=== PATIENT | female | born 1965 | race African-American/Black ===

== ENCOUNTER 2019-02-18 09:08 | Emergency (ER) | payer OTHER ==
[~2019-02-18] VITALS: Ht 162.6 cm; Wt 181.4 kg
[2019-02-18 09:30] LABS: ABSOLUTE NEUTROPHILS 4.8 thou/uL (1.4-8.2); BASOPHILS 1.2 % (0.0-2.0); EOSINOPHILS 2.5 % (0.0-3.0); HEMATOCRIT 31.3 % (37.0-47.0); HEMOGLOBIN 10.3 gm/dL (12.0-15.0); LYMPHOCYTES 29.5 % (24.0-44.0); MCH 26.1 pg (26.0-34.0); MCHC 32.9 g/dL (28.0-37.0); MCV 79.3 fL (80.0-100.0); MONOCYTES 9.2 % (1.0-8.0); POLYS 57.6 % (36.0-66.0); RBC 3.95 mil/uL (4.20-5.00); WBC 8.8 thou/uL (4.0-11.0)
[2019-02-18 09:36] LABS: ANION GAP 4 mmol/L (7-16); BUN 7 mg/dL (7-18); CALCIUM 9.1 mg/dL (8.5-10.1); CHLORIDE 103 mmol/L (98-107); CO2 32 mmol/L (21-32); CREATININE 0.9 mg/dL (0.6-1.0); GLUCOSE 217 mg/dL (74-106); POTASSIUM 3.2 mmol/L (3.5-5.1); SODIUM 139 mmol/L (136-145)
[2019-02-18 09:44] LABS: LIPASE 40 U/L (73-393); SGOT 12 U/L (15-37); SGPT 18 U/L (30-65); TOTAL BILIRUBIN 0.2 mg/dL (<0.1-1.0); TOTAL PROTEIN 6.9 g/dL (6.4-8.2); TROPONIN-I <0.06 ng/mL (<0.06)
[2019-02-18 09:46] LABS: URINE BILIRUBIN NEGATIVE (Negative); URINE BLOOD NEGATIVE (Negative); URINE CLARITY SL HAZY; URINE COLOR YELLOW; URINE GLUCOSE-RANDOM* NEGATIVE (Negative); URINE KETONES NEGATIVE (Negative); URINE LEUKOCYTES-REFLEX 3+ (Negative); URINE NITRITE-REFLEX POSITIVE (Negative); URINE PROTEIN (DIPSTICK) NEGATIVE (Negative); URINE UROBILINOGEN 0.2 E.U./dl (0.2-1.0)
[2019-02-18 09:52] LABS: SQUAMOUS 4-10 Moderate /LPF (0-3)
[2019-02-18 09:53] LABS: BACTERIA-REFLEX >30 Many /HPF (None Seen); CASTS None Seen /LPF (None Seen); URINE WBC-REFLEX 6-15 Few /HPF (0-5); YEAST-REFLEX Present (None Seen)
[2019-02-18 09:54] LABS: CRYSTALS None Seen /LPF (None Seen); URINE RBC 0-2 Rare /HPF (0-2)
[2019-02-18 10:05] LABS: ANISOCYTOSIS SLIGHT; MICROCYTES 1+; PLATELET COUNT 256 thou/uL (150-400); PLATELET ESTIMATE NORMAL
[2019-02-18] MEDS ORDERED: LANTUS100 UNIT/M SUBQ (10:24)
[2019-02-18] MEDS ORDERED: AMLODIPINE BESY10 MG PO (10:24)
[2019-02-18] MEDS ORDERED: GLIPIZIDE 10 MG10 MG PO (10:24)
[2019-02-18] MEDS ORDERED: NEURONTIN 300300 M1 PO (10:25)
[2019-02-18] MEDS ORDERED: HUMALOG100 UNIT/1 SUBQ (10:25)
[2019-02-18] MEDS ORDERED: XANAX1 MG PO (10:25)
[2019-02-18] MEDS ORDERED: ULTRAM 50MG TAB50 MG PO (10:26)
[2019-02-18] MEDS ORDERED: LOPERAMIDE 2 MG2 M1 PO (10:27)
[2019-02-18] MEDS ORDERED: TRAZODONE HCL50 MG PO (10:27)
[2019-02-18] MEDS ORDERED: CANASA1000 MG RECTAL (10:27)
[2019-02-18] MEDS ORDERED: ZOFRAN ODT4 MG DISSOLVE (11:23)
[2019-02-18] MEDS ORDERED: TRAMADOL 50 MG50 MG PO (11:23)
[2019-02-18] MEDS ORDERED: BACTRIM DS TAB1 EACH PO (11:53)
[2019-02-18 13:02] VITALS: BP 151/71
--- NOTE | 2019-02-18 17:00 | EKG ---
[place] [address] [facility] [place] [address] ELECTROCARDIOGRAM REPORT Name: KAILA CORONA Room #: DEP Jeanette#: [id number] ������������������ Admission: 02/18/19 ������������������ Attend Phys: Discharge: 02/18/19 ������������������ Date of : 63 Report #: [id number] ����������������������������������������������������������������� [id number] THIS REPORT FOR: //name// [facility] ED Test Date: 2019-02-18 Test Time: 09:36:44 Pat Name: KAILA CORONA Department: Room: Gender: F Gamma Operator: JANET : 1965 Requested By: Juan Carlos Hassan Order Number: [id number] MD: Toby Nagy Measurements Intervals [place] Rate: 79 P: 59 WI: 189 QRS: 43 QRSD: 96 T: 34 QT: 374 QTc: 429 Interpretive Statements Sinus rhythm No significant abnormality No previous ECG available for comparison Electronically Signed On 02-18-2019 16:59:56 CDT by Toby Nagy [email or web address] ��������������������������������������������� <ELECTRONICALLY SIGNED> ���������������������������������������� By: Toby Nagy MD, [facility] ��������������������������������������������� 02/18/19 1659 [id number] Toby Nagy MD, FAC /EPI
== END 2019-02-18 13:01 | disposition home or self-care (01) ==
LOC: ER 09:08
PROVIDERS: Emergency Medicine
DX: K51.90 Ulcerative colitis, unspecified, without complications (principal); E87.6 Hypokalemia; E11.9 Type 2 diabetes mellitus without complications; N39.0 Urinary tract infection, site not specified; F31.9 Bipolar disorder, unspecified; I10 Essential (primary) hypertension

== ENCOUNTER 2019-07-03 12:33 | Emergency (ER) | payer OTHER ==
[~2019-07-03] VITALS: Ht 165.1 cm; Wt 151.5 kg
[~2019-07-03 12:33] MED LIST: AMLODIPINE BESY10 MG PO; BACTRIM DS TAB1 EACH PO; CANASA1000 MG RECTAL; GLIPIZIDE 10 MG10 MG PO; HUMALOG100 UNIT/1 SUBQ; LANTUS100 UNIT/M SUBQ; LOPERAMIDE 2 MG2 M1 PO; NEURONTIN 300300 M1 PO; TRAMADOL 50 MG50 MG PO; TRAZODONE HCL50 MG PO; ULTRAM 50MG TAB50 MG PO; XANAX1 MG PO; ZOFRAN ODT4 MG DISSOLVE
[2019-07-03 14:41] LABS: URINE BILIRUBIN NEGATIVE (Negative); URINE BLOOD 1+ (Negative); URINE CLARITY CLOUDY; URINE COLOR YELLOW; URINE GLUCOSE-RANDOM* NEGATIVE (Negative); URINE KETONES NEGATIVE (Negative); URINE LEUKOCYTES-REFLEX 2+ (Negative); URINE NITRITE-REFLEX POSITIVE (Negative); URINE PROTEIN (DIPSTICK) TRACE (Negative); URINE SPECIFIC GRAVITY >= 1.030 (1.005-1.035); URINE UROBILINOGEN 0.2 E.U./dl (0.2-1.0)
[2019-07-03 14:49] LABS: AMORPHOUS URATES Many /LPF (None Seen); BACTERIA-REFLEX >30 Many /HPF (None Seen); CASTS None Seen /LPF (None Seen); SQUAMOUS 4-10 Moderate /LPF (0-3); URINE WBC-REFLEX >25 Many /HPF (0-5); WBC CLUMPS Moderate (None Seen)
[2019-07-03 15:00] LABS: ABSOLUTE NEUTROPHILS 3.5 thou/uL (1.4-8.2); BASOPHILS 0.6 % (0.0-2.0); HEMATOCRIT 36.8 % (37.0-47.0); LYMPHOCYTES 30.9 % (24.0-44.0); MCH 26.2 pg (26.0-34.0); MCHC 32.5 g/dL (28.0-37.0); MCV 80.4 fL (80.0-100.0); MONOCYTES 7.4 % (1.0-8.0); PLATELET COUNT 210 thou/uL (150-400); POLYS 57.1 % (36.0-66.0); RBC 4.57 mil/uL (4.20-5.00); RDW 14.2 % (10.5-14.5); WBC 6.1 thou/uL (4.0-11.0)
[2019-07-03 15:06] LABS: CALCIUM 9.6 mg/dL (8.5-10.1); POTASSIUM 3.9 mmol/L (3.5-5.1)
[2019-07-03 15:12] LABS: ALBUMIN 3.2 g/dL (3.4-5.0); TOTAL BILIRUBIN 0.4 mg/dL (<0.1-1.0); TOTAL PROTEIN 7.4 g/dL (6.4-8.2)
[2019-07-03] MEDS ORDERED: MACROBID 100 M100 M1 PO (15:22)
[2019-07-03 18:30] VITALS: BP 116/68
== END 2019-07-03 18:00 | disposition home or self-care (01) ==
LOC: ER 12:33
PROVIDERS: Physician Assistant
DX: N39.0 Urinary tract infection, site not specified (principal); R19.7 Diarrhea, unspecified; I10 Essential (primary) hypertension; E11.9 Type 2 diabetes mellitus without complications; F31.9 Bipolar disorder, unspecified; Z86.73 Personal history of transient ischemic attack (TIA), and cerebral infarction without residual deficits

== ENCOUNTER 2020-10-30 10:53 | Emergency (ER) | payer OTHER ==
[~2020-10-30] VITALS: Ht 162.6 cm; Wt 161.0 kg
[2020-10-30 10:53] VITALS: BP 158/84
[~2020-10-30 10:53] MED LIST changes: +MACROBID 100 M100 M1 PO
[2020-10-30 11:28] LABS: URINE BLOOD TRACE (Negative); URINE GLUCOSE-RANDOM* TRACE (Negative); URINE KETONES TRACE (Negative); URINE PROTEIN (DIPSTICK) 3+ (Negative); URINE UROBILINOGEN >= 8.0 E.U./dl (0.2-1.0)
[2020-10-30 11:30] LABS: URINE COLOR ORANGE; URINE LEUKOCYTES-REFLEX 3+ (Negative); URINE NITRITE-REFLEX POSITIVE (Negative)
[2020-10-30 11:31] LABS: URINE CLARITY HAZY
[2020-10-30 11:39] LABS: ICTOTEST (BILI CONFIRMATORY) Negative (Negative); URINE BILIRUBIN NEGATIVE (Negative); URINE SPECIFIC GRAVITY 1.015 (1.005-1.035)
[2020-10-30 11:42] LABS: BACTERIA-REFLEX >30 Many /HPF (None Seen); CASTS None Seen /LPF (None Seen); SQUAMOUS 4-10 Moderate /LPF (0-3); TRIPLE PHOSPHATE CRYSTALS 4-10 Moderate /LPF (None Seen); URINE RBC None Seen /HPF (0-2); URINE WBC-REFLEX 0-5 Rare /HPF (0-5)
[2020-10-30 11:46] LABS: AMORPHOUS PHOSPHATES Few /LPF (None Seen)
[2020-10-30] MEDS ORDERED: KEFLEX500 M1 PO (11:48)
== END 2020-10-30 11:49 | disposition home or self-care (01) ==
LOC: ER 10:53
PROVIDERS: Emergency Medicine
DX: N39.0 Urinary tract infection, site not specified (principal); E11.9 Type 2 diabetes mellitus without complications; I10 Essential (primary) hypertension; E66.01 Morbid (severe) obesity due to excess calories; F31.9 Bipolar disorder, unspecified; Z86.73 Personal history of transient ischemic attack (TIA), and cerebral infarction without residual deficits; Z68.44 Body mass index [BMI] 60.0-69.9, adult; Z79.899 Other long term (current) drug therapy; Z79.2 Long term (current) use of antibiotics; Z79.4 Long term (current) use of insulin

== ENCOUNTER 2020-11-04 17:07 | Emergency (ER) | payer OTHER ==
[~2020-11-04] VITALS: Ht 162.6 cm; Wt 161.0 kg
[~2020-11-04 17:07] MED LIST changes: +KEFLEX500 M1 PO
[2020-11-04 18:43] LABS: URINE BILIRUBIN NEGATIVE (Negative); URINE BLOOD 3+ (Negative); URINE GLUCOSE-RANDOM* 2+ (Negative); URINE KETONES NEGATIVE (Negative); URINE NITRITE-REFLEX NEGATIVE (Negative); URINE PROTEIN (DIPSTICK) 2+ (Negative); URINE UROBILINOGEN 0.2 E.U./dl (0.2-1.0)
[2020-11-04 18:44] LABS: URINE CLARITY HAZY; URINE COLOR REDDISH; URINE LEUKOCYTES-REFLEX 1+ (Negative)
[2020-11-04 18:51] LABS: BACTERIA-REFLEX 1-9 Few /HPF (None Seen); CASTS None Seen /LPF (None Seen); CRYSTALS None Seen /LPF (None Seen); SQUAMOUS 0-3 Few /LPF (0-3); URINE RBC >20 Many /HPF (0-2)
[2020-11-04] MEDS ORDERED: BACTRIM DS TAB1 EACH PO (18:55)
[2020-11-04 19:17] VITALS: BP 197/95
== END 2020-11-04 19:44 | disposition home or self-care (01) ==
LOC: ER 17:07
PROVIDERS: Emergency Medicine
DX: N39.0 Urinary tract infection, site not specified (principal); Z43.6 Encounter for attention to other artificial openings of urinary tract; I10 Essential (primary) hypertension; E11.9 Type 2 diabetes mellitus without complications; E66.01 Morbid (severe) obesity due to excess calories; F31.9 Bipolar disorder, unspecified; Z68.44 Body mass index [BMI] 60.0-69.9, adult; Z86.73 Personal history of transient ischemic attack (TIA), and cerebral infarction without residual deficits; Z79.899 Other long term (current) drug therapy; Z79.2 Long term (current) use of antibiotics; Z79.4 Long term (current) use of insulin

== ENCOUNTER 2020-12-10 22:08 | Inpatient (IN) | payer OTHER ==
[~2020-12-10] VITALS: Ht 162.6 cm; Wt 161.5 kg
[~2020-12-10 22:08] MED LIST changes: +CEFPODOXIME PR100 MG PO
[2020-12-10 22:15] VITALS: BP 138/86
[2020-12-10] MEDS ORDERED: NORCO 10-325 T1 EACH PO (22:29)
[2020-12-10] MEDS ORDERED: MORPHINE PO (22:29)
[2020-12-10] MEDS ORDERED: ZOFRAN4 MG PO (22:31)
[2020-12-10] MEDS ORDERED: LYRICA 50 MG50 MG PO (22:32)
[2020-12-10 22:49] LABS: EOSINOPHILS 4.9 % (0.0-3.0); LYMPHOCYTES 27.5 % (24.0-44.0); MCH 25.7 pg (26.0-34.0); MCHC 31.7 g/dL (28.0-37.0); MONOCYTES 7.3 % (1.0-8.0); PLATELET COUNT 232 thou/uL (150-400); POLYS 59.3 % (36.0-66.0); RBC 4.69 mil/uL (4.20-5.00); RDW 14.2 % (10.5-14.5); WBC 6.7 thou/uL (4.0-11.0)
[2020-12-10 22:52] LABS: CALCIUM 8.7 mg/dL (8.5-10.1); CREATININE 0.9 mg/dL (0.6-1.0); POTASSIUM 4.9 mmol/L (3.5-5.1)
[2020-12-10 22:58] LABS: ALBUMIN 3.2 g/dL (3.4-5.0); TOTAL BILIRUBIN 0.4 mg/dL (0.2-1.0); TOTAL PROTEIN 7.3 g/dL (6.4-8.2)
[2020-12-10 23:57] LABS: URINE BILIRUBIN NEGATIVE (Negative); URINE BLOOD 2+ (Negative); URINE CLARITY CLEAR; URINE COLOR YELLOW; URINE GLUCOSE-RANDOM* 3+ (Negative); URINE KETONES NEGATIVE (Negative); URINE PROTEIN (DIPSTICK) TRACE (Negative)
[2020-12-11] VITALS (7 sets, daily range): BP systolic 104–156; BP diastolic 68–92
[2020-12-11] LABS: URINE LEUKOCYTES-REFLEX 1+ (Negative); URINE NITRITE-REFLEX POSITIVE (Negative)
[2020-12-11 00:58] LABS: BACTERIA-REFLEX 1-9 Few /HPF (None Seen); CASTS None Seen /LPF (None Seen); CRYSTALS None Seen /LPF (None Seen); MUCUS 0-3 Light strn/LPF (None Seen); SQUAMOUS None Seen /LPF (0-3); URINE RBC 3-10 Few /HPF (0-2)
[2020-12-11] MEDS ORDERED: ARYMO ER15 MG PO (01:39)
[2020-12-11] MEDS ORDERED: LIPITOR40 MG PO (01:39)
[2020-12-11] MEDS ORDERED: OMEPRAZOLE40 MG PO (01:40)
[2020-12-11] MEDS ORDERED: LASIX 40 MG TAB40 MG PO (01:40)
[2020-12-11] MEDS ORDERED: CELEXA 20 MG TA20 MG PO (01:41)
[2020-12-11] MEDS ORDERED: ROPINIROLE HCL0.5 MG PO (01:43)
[2020-12-11] MEDS ORDERED: QUETIAPINE FUMA50 MG PO (01:43)
[2020-12-11] MEDS ORDERED: COLESTIPOL HCL1 G1 PO (01:47)
[2020-12-11] MEDS ORDERED: DICYCLOMINE HCL20 MG PO (01:48)
--- NOTE | 2020-12-11 03:50 | NUR ---
ADMITTED TO THE UNIT AT APPROXIMATELY 0230. PT IS A/O X4 AND IS CURRENTLY ON BED REST AND REQUIRES LIFT FOR TRANSFERS. ROOM AIR. INCONTINENT OF BOWEL, SUPRAPUBIC CATHETER IN PLACE. C/O BURNING IN THE VAGINA AND LEFT LEG PAIN. PRN PAIN MEDICATION GIVEN DIRECTED. FLUIDS STARTED DIRECTED. IV IS IN RIGHT FOREARM AND APPEARS IN PLACE WITHOUT REDNESS OR EDEMA. LEFT SIDED WEAKNESS DUE TO PREVIOUS CVA. BOTH LEFT ARM AND LEG ELEVATED ON PILLOWS. ADMISSON COMPLETED. FALL PRECAUTIONS AND SCD'S IN PLACE, CALL LIGHT IS WITHIN REACH. PT EDUCATED ON HOW TO PROPERLY CALL FOR ASSISTANCE. WILL CONTINUE TO MONITOR. WILL NOTIFY EGG BREAKING MACHINE OPERATOR OF BURNING SENSATION.
--- NOTE | 2020-12-11 12:39 | NUR ---
ASSUMED PT CARE THIS AM. LEFT SIDED PARALYSIS NOTED. PT BEING REPOSITIONED Q2H AND WHEN REQUESTED BY PT. COMPLAINS OF LEFT LEG PAIN, RESPONDED WELL TO PAIN MEDS GIVEN. TOOK MEDS WELL THIS AM. ON ROOM AIR. SUPRAPUBIC CATHETER IN PLACE. IV PATENT, FLUIDS DISCONTINUED. IV ABX INFUSED. PT COOPERATIVE WITH STAFF. FALL PRECAUTIONS IN PLACE.
--- NOTE | 2020-12-12 02:43 | NUR ---
PT IS A/O X4 AND IS ON BEDREST. LEFT SIDED WEAKNESS FROM PREVIOUS HX OF CVA. C/O LEFT LEG PAIN. PRN PAIN MEDICATION GIVEN DIRECTED. AT THIS TIME PT IS LYING IN HER BED AND APPEARS TO BE SLEEPING. SUPRAPUBIC CATHETER IN PLACE AND DRAINING DARK YELLOW URINE. FALL PRECAUTIONS IMPLEMENTED, CALL LIGHT IS WITHIN REACH. WILL CONTINUE TO MONITOR.
[2020-12-12 07:26] VITALS: BP 137/87
--- NOTE | 2020-12-12 11:41 | NUR ---
ASSUMED PT CARE THIS AM. PT VSS, A&OX4. PT PLEASANT AND COOPERATIVE WITH STAFF. SUPRAPUBIC CATHETER IN PLACE, DRAINING WELL. URINE IS AN ORANGE COLOR DUE TO MEDICATION GIVEN FOR UTI. PAIN REPORTED ON THE LEFT LEG, RESPONDS WELL TO MEDS GIVEN PER EMAR. ON ROOM AIR. IV SITE CHANGED THIS AM DUE TO IV BEING DISCONTINUED. TOLERATES DIET WELL. MEDS GIVEN WITHOUT COMPLAINT. FLU SHOT GIVEN THIS DAY. FALL PRECAUTIONS IN PLACE DUE TO PATIENT BEING IMMOBILE. SCD'S ON.
[2020-12-12 15:30] VITALS: BP 135/50
[2020-12-12 20:20] VITALS: BP 130/77
--- NOTE | 2020-12-13 07:33 | NUR ---
SEVERAL BM'S THIS SHIFT,CDIFF SAMPLE SENT TO LAB.REPOSITIONED Q2 HOURS AND NEEDED.NEW IV ACCESS PLACED TO RIGHT HAND.DENIES NEEDS AT THIS TIME.POC CONTINUED.
[2020-12-13 08:41] VITALS: BP 132/68
[2020-12-13] MEDS ORDERED: MACROBID 100 M100 MG PO (09:42)
[2020-12-13] MEDS ORDERED: PHENAZOPYRIDIN100 M1 PO (09:43)
--- NOTE | 2020-12-13 10:46 | NUR ---
ASSUMED PT CARE THIS AM. PT A&OX4, VSS. PT HAS A FLAT AFFECT TODAY. SUPRAPUBIC CATHETER DRAINING WELL. ON ROOM AIR. PAIN NOTED IN THE LEFT LEG, RESPONDED WELL TO PAIN MEDS GIVEN PER EMAR. FALL PRECAUTIONS IN PLACE DUE TO IMMOBILITY. IV PATENT, MEDS INFUSING WELL. TOLERATING DIET WELL. CALLS APPROPRIATELTY WHEN NEEDED. REPOSITIONING PT APPROPRIATELY.
--- NOTE | 2020-12-13 12:33 | NUR ---
PT ADMITTED RELATED TO UTI. CM REVIEWED CHART AND SPOKE WITH CARE TEAM. CM MET CALLED AND SPOKE WITH PT OVER THE PHONE THIS DAY. PT INDICTED SHE LIVES IN A HOUSE WITH NO STEPS TO ENTER AND NO STEPS INSIDE. PT INDICATED SHE HAD BEEN USING A ROBIN DEVICE AND AN ELECTRIC WC PRIOR TO ADMISSION. PT INDICATED THAT HER DTR IS HER PAID CAREGIVER THROUGH MEDICAID HCBS SHE HAS 4HRS PER DAY 7 DAYS A WEEK. PT INDICATED [facility] WITH HER SUPRAPUBIC CATHETER. PT INDICATED SHE HAD A HOSPITAL BED BUT THAT IT BROKE AND SHE MOVED AND WAS TOLD SHE COULDN'T GET ONE FOR 5 YRS. PT CAN'T RECALL PROVIDER. CM ATTEMTPED PC TO PT'S DTR AND NUMBER LISTED ISN'T A WORKING NUMBER. CM SPOKE WITH JOHN AND SHE INDICATED SHE WOULD LIKELY NEED MORE INFO THAT [facility] DOESN'T STORE PROVIDER INFO. CM TO FOLLOW INICATED WITH ANTICPATED DC TOMORROW.
[2020-12-13 16:27] VITALS: BP 146/56
[2020-12-13 21:35] VITALS: BP 116/65
--- NOTE | 2020-12-14 03:00 | NUR ---
ASSUMED CARE OF PT AT 1900HRS. PT AOX4 AND LETS NEEDS BE KNOWN. FALL PRECAUTION IN PLACE. FRANCO IN PLACE AND PATIENT, HOWVER, PT HAD 1X INCT VOIDING. PT TURNED AND REPOSITIONED FREQUENTLY. ABX TREATMENT CONTINUED. URINE IS ORANGE IN COLOR DUE TO AZO. PT REPORTED SOME PAIN AND ITCHING, PRN MEDS AND LOTION USED FOR RELIEF. PT WAS ABLE TO GET COMFORTABLE AND SLEEP PART OF THE SHIFT. VSS AND NO S/S OF ACUTE DISTRESS. WILL CONTINUE TO MONITOR.
[2020-12-14 08:15] VITALS: BP 128/64
[2020-12-14 10:10] VITALS: BP 128/64
[2020-12-14] MEDS ORDERED: VANCOMYCIN HCL125 MG PO (10:26)
[2020-12-14 11:48] VITALS: BP 128/64
--- NOTE | 2020-12-14 13:05 | NUR ---
PT DISCHARGING TODAY TO HOME WITH [facility] FAXED UPDATE WITH DC ORDERS/SUMMARY RECEIVED CONFIRNATION AND LEFT MSG WITH INTAKE AT [facility]. PT NEEDED TRANSPORT HOME ARRANGED TRANSPORT WITH [facility] ARRANGED FOR [id number] TRIP #[id number].
[2020-12-14 13:17] VITALS: BP 128/64
--- NOTE | 2020-12-14 14:02 | NUR ---
CARE TEAM INDICATED THAT PT IS MEDICALLY STABLE TO DC HOME THIS DAY. CM SPOKE WITH PT AND SHE WAS AWARE OF DISCHARGE HOME THIS DAY. PT ASKED ABOUT STATUS OF HOSPITAL BED. CM INDICATED THAT CM HAD CHECKED AND IT HAD BEEN INDICATED THAT HER [facility] FOLLOWS MEDICARE GUIDELINES AND WOULDN'T PROVIDE ANOTHER BED UNTIL SHE IS OUT OF HER 5YR WINDOW. PT INDICATED SHE HAD GOTTEN BED WHILE LIVING IN [facility] AND THEN MOVED TO [place] WHERE IT BROKE ABOUT 2.5 YRS AGO. PT ASKED ABOUT A ROBIN SLING SHE INDICATED HERS HAD BEEN THROWN AWAY DUE TO IT BEING SOILED. ANOTHER WAS FOUND AND PROVIDED TO HER/ TRANSPORT ARRANGED VIA STRETCHER FOR [facility]IR [employer]ER BETWEEN [phone]. PT IS AWARE AND AGREEABLE. [facility] NO OTHER CM INTERVENTION INDICATED. CASE CLOSED.
--- NOTE | 2020-12-14 16:34 | NUR ---
Assumed pt care at 7am.Assessment completed.vss.Am meds given with breakfast and well tolerated.Dr Montoya here,dc order noted.Pt informed about dc home today.call center operations manager arranged for transport and home health care for pt at in. Dc summary compile and reviewed with pt.RX faxed to pt pharmacy. Piv and saline lock dc'd.Oral pain med given prior to pt dc home per non medical ambulance at 1630.
== END 2020-12-14 16:30 | disposition home health service (06) | DRG 699 ==
LOC: ER 22:08 → 4W 12-11 01:16 → EROBS 12-11 01:16 → 4W 12-11 02:16
PROVIDERS: Emergency Medicine; ADMIT Hospitalist; ATTEND Hospitalist
DX: T83.518A Infection and inflammatory reaction due to other urinary catheter, initial encounter (principal); N39.0 Urinary tract infection, site not specified; I69.354 Hemiplegia and hemiparesis following cerebral infarction affecting left non-dominant side; Z68.44 Body mass index [BMI] 60.0-69.9, adult; A04.72 Enterocolitis due to Clostridium difficile, not specified as recurrent; F31.9 Bipolar disorder, unspecified; E11.42 Type 2 diabetes mellitus with diabetic polyneuropathy; E78.5 Hyperlipidemia, unspecified; G89.4 Chronic pain syndrome; M17.0 Bilateral primary osteoarthritis of knee; F41.9 Anxiety disorder, unspecified; I10 Essential (primary) hypertension; E66.01 Morbid (severe) obesity due to excess calories; Y83.8 Other surgical procedures as the cause of abnormal reaction of the patient, or of later complication, without mention of misadventure at the time of the procedure; Y92.89 Other specified places as the place of occurrence of the external cause; Z79.899 Other long term (current) drug therapy; Z79.4 Long term (current) use of insulin; Z23 Encounter for immunization
CPT/HCPCS: 10047

== ENCOUNTER 2021-01-04 19:06 | Inpatient (IN) | payer OTHER ==
[~2021-01-04] VITALS: Ht 162.6 cm; Wt 158.7 kg
--- NOTE | ~2021-01-04 | EMS ---
[address] [address] EMS Patient Care Report Name: KAILA CORONA Room #: 450-P ADM IN M.R.#: [id number] Admission: 01/04/21 Attend Phys: Narinder Allen MD Discharge: Date of : 63 Report #: [id number] THIS REPORT FOR: //name// Report Transmitted: 01/05/2021 21:44 EMS Care Summary [facility] Incident [id number] @ 01/04/2021 18:27 Incident Location [address] [place] [address] Patient KAILA CORONA Female, 55 Years 1965 Patient Address [address] [place] [address] Patient History Diabetes,Hypertension (HTN),Stroke/CVA,Morbid Obesity,Bipolar II Disorder,Chronic Pain, Patient Allergies No known allergies, Patient Medications Victoza, Insulin, Chief Complaint Painful urination Disposition Transported No Lights/[place] Reason Sick Person Transported To [facility] Narrative S51 responded non-emergent to sick person call. Arrived to find patient sitting Fowlers in wheel chair. Patient appeared alert and oriented with GCS of 15 and regular, non labored respirations. Patient skin appeared pink warm and dry. She [facility] [address] [place] [address] EMS Patient Care Report Name: KAILA CORONA Room #: 450-P ADM IN Jeanette#: [id number] Admission: 01/04/21 Attend Phys: Narinder Allen MD Discharge: Date of : 63 Report #: [id number] stated she wanted to go to the hospital for a UTI. Patient's airway was patent, lung sounds were clear bilaterally, SPO2 was 97% on room air. Patient was A&Ox4 with a GCS of 15. Patient was lifted via Darya lift from wheel chair and lowered on to the cot. Patient was secured to cot with seat belts and transported to the back of the ambulance. patient stated she just left the hospital "last week" for a UTI. Stated she was sent home from the hospital with "three days worth of antibiotics". Patient has a Castaneda catheter with an empty drainage bag and approx 20 ml of pale yellow urine in the tube. Patient's initial vitals showed sinus tachycardia, with elevated bp and blood glucose level was 318 mg/dL. All other vitals where within normal range. Patient stated she has a history of type 2 diabetes, bipolar disorder, and stroke with complete left side extremity deficits. Patient denied any medication allergies. She stated she began to feel the burning sensation where the Castaneda catheter was inserted yesterday. She rates the burning pain compared to the other times she's had a UTI at an "11/10" Ongoing assessment shows a bp of 160/98, with hr of 94. All other subsequent vitals showed no significant changes. Patient was transported non-emergent to [facility]. Left with nurse Christin in triage. Initial Vitals @18:48P: 104,R: 16,BP: 160/98,Pain: 10/10,GCS: 15,Glucose: 318,SpO2: 98,Revised Trauma: 12, @18:54P: 94,R: 16,BP: 164/98,Pain: 10/10,GCS: 15,SpO2: 97,Revised Trauma: 12, @19:00P: 95,R: 18,BP: 154/96,Pain: 10/10,GCS: 15,SpO2: 98,Revised Trauma: 12, Assessments @18:41MENTAL:No Abnormalities,SKIN:No Abnormalities,HEENT:Head/Face: No Abnormalities,Eyes: No Abnormalities,Neck/Airway: No Abnormalities,LUNG SOUNDS:General: No Abnormalities,Left Upper: No Abnormalities,Right Upper: No Abnormalities,Left Lower: No Abnormalities,Right Lower: No Abnormalities,ABDOMEN:General: No Abnormalities,Left Upper: No Abnormalities,Right Upper: No Abnormalities,Left Lower: No Abnormalities,Right Lower: No Abnormalities,PELVIS//GI:Pelvis GUOther,AVERY,EXTREMITIES:Left Leg: AVERY,Left Arm: No Abnormalities,Right Arm: No Abnormalities,Right Leg: No Abnormalities,PULSE:NEURO:No Abnormalities,@18:54MENTAL:No Abnormalities,SKIN:No Abnormalities,HEENT:Head/Face: No Abnormalities,Eyes: No Abnormalities,Neck/Airway: No Abnormalities,LUNG SOUNDS:General: No Abnormalities,Left Upper: No Abnormalities,Right Upper: No Abnormalities,Left Lower: No Abnormalities,Right Lower: No Abnormalities,ABDOMEN:General: No Abnormalities,Left Upper: No Abnormalities,Right Upper: No Abnormalities,Left Lower: No Abnormalities,Right Lower: No Abnormalities,PELVIS//GI:Pelvis GUOther,EXTREMITIES:Left Arm: No Abnormalities,Right Arm: No Abnormalities,Left Leg: No Abnormalities,Right Leg: No Abnormalities,PULSE:NEURO:No Abnormalities, [facility] [address] [place] [address] EMS Patient Care Report Name: KAILA CORONA Room #: [facility]-P ADM IN Jeanette#: [id number] Admission: 01/04/21 Attend Phys: Narinder Allen MD Discharge: Date of : 63 Report #: [id number] Impression Pelvic and Perineal Pain Procedures @18:41ALS AssessmentResponse: UnchangedSucceeded@18:483-Lead ECGResponse: UnchangedSucceeded Timeline 18:25,Call Received 18:25,Psap Call 18:27,Dispatched 18:30,En Route 18:36,Initial Responder On Scene 18:36,On Scene 18:37,At Patient 18:41,ALS Assessment,Response: UnchangedSucceeded, 18:45,Depart Scene 18:48,3-Lead ECG,Response: UnchangedSucceeded, 18:48,BP: 160/98 M,PULSE: 104,RR: 16 R,SPO2: 98 Ox,ETCO2: ,B,PAIN: 10,GCS: 15, 18:54,BP: 164/98 M,PULSE: 94,RR: 16 R,SPO2: 97 Ox,ETCO2: ,BG: ,PAIN: 10,GCS: 15, 19:00,BP: 154/96 M,PULSE: 95,RR: 18 R,SPO2: 98 Ox,ETCO2: ,BG: ,PAIN: 10,GCS: 15, 19:00,At Destination 19:02,Transfer Patient 19:28,Call Closed Disclaimer v1.1 Copyright 2020 [employer] This EMS Care Summary contains data elements from the applicable legal record (which may be displayed differently). It is designed to provide pertinent information for the following purposes: continuity of care, clinical quality, and state data reporting. The complete legal record is available to ED staff and administrators of the receiving hospital in [employer] Patient Tracker. All data is provided "as is."
[~2021-01-04 19:06] MED LIST changes: +ARYMO ER15 MG PO; +CELEXA 20 MG TA20 MG PO; +COLESTIPOL HCL1 G1 PO; +DICYCLOMINE HCL20 MG PO; +LASIX 40 MG TAB40 MG PO; +LIPITOR40 MG PO; +LYRICA 50 MG50 MG PO; +MACROBID 100 M100 MG PO; +MORPHINE PO; +NORCO 10-325 T1 EACH PO; +OMEPRAZOLE40 MG PO; +PHENAZOPYRIDIN100 M1 PO; +QUETIAPINE FUMA50 MG PO; +ROPINIROLE HCL0.5 MG PO; +VANCOMYCIN HCL125 MG PO; +ZOFRAN4 MG PO
[2021-01-04 19:08] VITALS: BP 181/107
[2021-01-04 20:19] LABS: URINE BILIRUBIN NEGATIVE (Negative); URINE BLOOD 1+ (Negative); URINE CLARITY SL CLOUDY; URINE COLOR YELLOW; URINE GLUCOSE-RANDOM* 3+ (Negative); URINE KETONES NEGATIVE (Negative); URINE LEUKOCYTES-REFLEX TRACE (Negative); URINE NITRITE-REFLEX POSITIVE (Negative); URINE PROTEIN (DIPSTICK) 1+ (Negative); URINE SPECIFIC GRAVITY 1.015 (1.005-1.035); URINE UROBILINOGEN 0.2 E.U./dl (0.2-1.0)
[2021-01-04 20:20] LABS: BACTERIA-REFLEX >30 Many /HPF (None Seen); CASTS None Seen /LPF (None Seen); CRYSTALS None Seen /LPF (None Seen); MUCUS 0-3 Light strn/LPF (None Seen); SQUAMOUS 0-3 Few /LPF (0-3); URINE RBC 3-10 Few /HPF (0-2); URINE WBC-REFLEX 0-5 Rare /HPF (0-5)
--- NOTE | 2021-01-04 23:20 | NUR ---
NOTIFIED CHARGE NURSE THAT TWO NURSES ATTEMPTED TO OBTAIN BLOOD AND START AN IV WITH NO SUCCESS.
--- NOTE | 2021-01-04 23:56 | NUR ---
NURSE AT THE BEDSIDE ATTEMPTED IV/BLOOD DRAW WITH ULTRASOUND.
[2021-01-05 00:42] LABS: BASOPHILS 0.5 % (0.0-2.0); EOSINOPHILS 3.8 % (0.0-3.0); HEMATOCRIT 37.6 % (37.0-47.0); HEMOGLOBIN 12.1 gm/dL (12.0-15.0); MCH 26.1 pg (26.0-34.0); MCHC 32.1 g/dL (28.0-37.0); MCV 81.4 fL (80.0-100.0); MONOCYTES 6.2 % (1.0-8.0); PLATELET COUNT 246 thou/uL (150-400); POLYS 68.5 % (36.0-66.0); RBC 4.62 mil/uL (4.20-5.00); RDW 13.9 % (10.5-14.5); WBC 8.7 thou/uL (4.0-11.0)
[2021-01-05 01:07] LABS: CALCIUM 9.1 mg/dL (8.5-10.1); CREATININE 0.9 mg/dL (0.6-1.0)
[2021-01-05 04:22] VITALS: BP 160/103
--- NOTE | 2021-01-05 04:34 | NUR ---
IV HAS INFILTRATED.
--- NOTE | 2021-01-05 04:45 | NUR ---
IV INSERTION IS BEING ATTEMPTED AT WITH ULTRASOUND AGAIN.
[2021-01-05] MEDS ORDERED: BACLOFEN 10MG T10 MG PO (04:47)
[2021-01-05 05:37] VITALS: BP 165/99
[2021-01-05 05:40] LABS: HEMATOCRIT 37.7 % (37.0-47.0); MCH 25.7 pg (26.0-34.0); MCHC 31.7 g/dL (28.0-37.0); RBC 4.65 mil/uL (4.20-5.00); RDW 14.4 % (10.5-14.5); WBC 8.1 thou/uL (4.0-11.0)
[2021-01-05 06:49] LABS: CALCIUM 8.9 mg/dL (8.5-10.1); CREATININE 0.7 mg/dL (0.6-1.0)
[2021-01-05 07:06] LABS: POTASSIUM 2.8 mmol/L (3.5-5.1)
--- NOTE | 2021-01-05 08:10 | NUR ---
PT admitted from ED at 0515 w/UTI. A/OX4,very tearful. VSS. C/o pain with movement to LLE. Max assist with transfers and normally uses a cyndee lift at home. Has a suprapubic catheter in place with yellow/cloudy/sediments urine;reports foul order days ago. Incopntinent of bowels. Pt has left hemiparesis,needs set up with meals. Fall precautions in place,calls approp for help.
--- NOTE | 2021-01-05 08:30 | NUR ---
PT IN BED AND COMPLAINING OF TRYING TO GET COMFORTABLE. DIFFICULT FOR PT TO GET COMFORTABLE WITHOUT ASSISTANCE, PT FLACID TO LEFT ARM AND LEG FROM STROKE. PT ABLE TO EAT SOLID FOOD AND THIN LIQUIDS. PT HAS SUPERPUBIC CATH AND COMPLAINS OF AN ODOR FROM AREA. PT HAS IV TO RT FA THAT WAS WRAPPED IN [place]. TOOK OFF [place] AND NOTICED SWELLING TO RT FA. STOPPED FLUIDS AT THIS TIME. PT HAS ORANGE COLOR URINE TO FRANCO BAG DUE TO MEDICATION. PT STATED DTR IS IN [place], [place] FOR VACATION. PT STATED SHE WOULD REFUSE TO HAVE IV TO NECK. PT STATED I CAN GET ON WHAT EVER ABX ORAL INSTEAD OF NECK IV.
[2021-01-05 08:52] VITALS: BP 140/74
--- NOTE | 2021-01-05 09:03 | NUR ---
PT COMPLAINED OF NAUSEA. ADM ZOFRAN 4MG IV FOR NAUSEA, NO VOMITING.
--- NOTE | 2021-01-05 10:30 | NUR ---
NOTIFIED DR. MONK ABOUT PT IV INFILTRATED AND SHE WAS STUCK 10X PRIOR. ALSO RELAYED K+ LEVEL 2.8.
--- NOTE | 2021-01-05 11:07 | NUR ---
IV TEAM HERE TO SEE PT. PT WAS TURNED DUE TO LOOSE BM X2 PERSONS AND PULLED UP IN BED.
--- NOTE | 2021-01-05 11:48 | NUR ---
VAT CONSULTED FOR ML. PT'S LABS,MEDS,HX,ORDER VERIFIED. DISCUSSED BENEFITS AND RISK OF ML WITH PT, VERBALIZED UNDERSTANDING AND GAVE VERBAL CONSENT. R ARM BRUISED AND SWOLLEN FROM INFILTRATED PIV'S. CHELSEA CEPHALIC WIDELY PATENT ,VESSEL MEASURES 43% WITH USG. 4FR POWER ML TRIMMED TO 15CM INSERTED TO 0CM EXTERNAL WITH BRISK BR. PT TOLERATED WELL. ML RELEASED FOR IMMEDIATE USE PER PROTOCOL TO RN
[2021-01-05 15:55] VITALS: BP 125/77
[2021-01-05 16:00] VITALS: BP 125/77
--- NOTE | 2021-01-05 16:41 | NUR ---
Case opened to follow for dc planning. Vp Product Marketing visited with the pt via phone. Pt ins ISO for cdiff (recurrent) also being treated for recurrent UTI. Pt recently had her suprapubic cath replaced. She is on services with [facility] currently. They can accept her for readmission at nd. She notes that she is currently staying with her sister Meli while her dtr is out of town on vacation til 01-11-21. Meli is also her designated visitor. The pt has all needed dme in the home including her w/c and cyndee lift. The pt had questions about possible rehab or snf stay;however she is at baseline with her functional status with PT. Pt may need OT which could be provided per HH. Should she need iv atb at dc snf may be an option;should that be the case she would like to consider Marilyn SILVA, Neeta or Alicia Verduzco. Will f/u with the care team in the am and advise pt on anticipated dc date.
--- NOTE | 2021-01-05 16:45 | NUR ---
PT ON SERVICE WITH [facility] PRIOR TO ADM FAXED REFERRAL TO RESUME CARE AT [facility] RECEIVED CONFIRMATION WILL F/U WITH INTAKE TOMORROW.
[2021-01-05 20:00] VITALS: BP 158/85
--- NOTE | 2021-01-06 02:15 | NUR ---
ASSUMED CARE OF PATIENT AT 1900. MEDICATIONS GIVEN ORDERED. ONE BOWEL MOVEMENT. PATIENT VERY SLEEPY BUT WAKES WHEN NEEDED TO. RESTING THROUGH THE NIGHT, NO S/S OF DISTRESS. WORKING TOWARDS POC GOALS.
[2021-01-06 08:06] VITALS: BP 123/69
[2021-01-06 10:11] LABS: HEMATOCRIT 33.7 % (37.0-47.0); HEMOGLOBIN 10.8 gm/dL (12.0-15.0); MCHC 32.1 g/dL (28.0-37.0); MCV 81.3 fL (80.0-100.0); RBC 4.14 mil/uL (4.20-5.00); RDW 14.4 % (10.5-14.5); WBC 6.6 thou/uL (4.0-11.0)
[2021-01-06 10:19] LABS: CALCIUM 8.6 mg/dL (8.5-10.1); CREATININE 0.7 mg/dL (0.6-1.0); MAGNESIUM 1.8 mg/dL (1.8-2.4); POTASSIUM 3.5 mmol/L (3.5-5.1)
--- NOTE | 2021-01-06 11:18 | NUR ---
Nutrition note: Pt seen for high risk screening due to BMI of 60. Pt admitted with recurrent UTI, hx of DM, ulcerative colitis, HTN, HLD, CVA with residual L sided hemiparesis. Pt with fair to good appetite, did note some nausea on admit. No c/o GI distress otherwise. No pressure ulcers note. Pt remains low nutritional risk with present interventions. RD will remain available.
--- NOTE | 2021-01-06 15:22 | NUR ---
CARE TEAM INDICATED THAT PT IS PROGRESSING TOWARD GOAL OF DISCHARGE. PT IS ON IV ABX. ANTICIPATE PT RETURNING TO SISTER'S HOUSE AND RESUMEING HH SERVICES WITH [facility] ONCE MEDICALLY STABLE.
[2021-01-06 18:50] VITALS: BP 150/76
--- NOTE | 2021-01-06 23:11 | NUR ---
ASSUMED CARE OF PT AT 1900. PT IS A/O X4 AND IS ON BEDREST. LEFT SIDED HEMIPARESIS DUE TO HX OF CVA. ROOM AIR. MEDSURG STATUS. SUPRAPUBIC IN PLACE AND WAS LEAKING. FLUSHED AND IS WORKING APPROPRIATELY AT THIS TIME. 2 EPISODES OF INCONTINENCE OF STOOL. MEDICATIONS GIVEN PER MAR. FALL PRECAUTIONS IN PLACE, CALL LIGHT IS WITHIN REACH.WILL CONTINUE TO MONITOR.
[2021-01-07 07:32] VITALS: BP 151/80
--- NOTE | 2021-01-07 08:15 | HC ---
[facility] [place] [address] CONSULTATION Name: KAILA CORONA Room #: 450-P ADM IN M.R.#: [id number] Admission: 01/04/21 Attend Phys: Narinder Allen MD Discharge: Date of : 63 Report #: [id number] THIS REPORT FOR: cc: Angel Garces,Kenny Hui MD ~ DATE OF SERVICE: 01/06/2021 INFECTIOUS DISEASE CONSULTATION ATTENDING PHYSICIAN: Dr. Allen. REASON FOR EVALUATION: Complicated urinary tract infection, also gram-positive septicemia. HISTORY OF PRESENT ILLNESS: Chart reviewed, patient examined. This is a 55-year-old with history of previous stroke, has left-sided hemiparalysis as well as bladder dysfunction, has got a longstanding indwelling suprapubic catheter that has been complicated by recurrent urinary tract infections. She had it exchanged the day of admission. This led to some increasing urinary tract symptoms. She was transitioned to the Emergency Room, was found to have marked bacteriuria, although a little pyuria at that point. Urine culture now with growth of E. coli, awaiting susceptibility, although it is notable that in latter part of November, had a similar situation, E. coli was isolated from the urine and it was noted to be multiply resistant. Blood culture was collected at the time of admission as well and had 1+/2 with growth of gram-positive cocci. She was empirically placed on antimicrobial therapy with cefepime, given a dose of vancomycin as well. She is quite somnolent. Apparently was given medicines for sleep, now she is quite somnolent. She does admit to discomfort and abdominal-related complaints. She is maintained on room air, although she does have a cough. ALLERGIES: None known. MEDICATIONS: Currently include ropinirole, insulin glargine, quetiapine, trazodone, atorvastatin, cefepime 2 g q.8 hours, furosemide, citalopram, amlodipine, colestipol, glipizide, pantoprazole, insulin lispro, pregabalin, dicyclomine, alprazolam as needed, hydrocodone. PAST MEDICAL HISTORY: As described above, diabetes mellitus type 2, previous stroke with left-sided paralysis, neurogenic bladder, chronic indwelling suprapubic catheter roughly a year, history of ulcerative colitis, bipolar disease, hypertension, hyperlipidemia, anxiety, morbid obesity. SOCIAL HISTORY: Nonsmoker, no ethanol, no illicit drug use. [address] [address] CONSULTATION Name: KAILA CORONA Room #: [facility] IN [facility]#: [id number] Admission: 01/04/21 Attend Phys: Narinder Allen MD Discharge: Date of : 63 Report #: [id number] FAMILY HISTORY: Noncontributory. REVIEW OF SYSTEMS: Not reliably obtained. PHYSICAL EXAMINATION: GENERAL: She is quite somnolent, rhla-tl-ptelbnrf distress. She is obese, although appears chronically ill. VITAL SIGNS: Temperature 98.6, pulse 69, respirations 14, blood pressure 123/69. SKIN: Warm, dry. No rashes. HEENT: Normocephalic. Extraocular muscles intact. NECK: Supple. LUNGS: Diminished breath sounds. HEART: Regular. I do not appreciate murmur. ABDOMEN: Obese, distended, somewhat firm. Does have some tenderness in the lower quadrants. Suprapubic catheter in place. GENITOURINARY: Deferred. RECTAL: Deferred. LABORATORY DATA: Electrolytes: Sodium 142, potassium 3.5, chloride 107, bicarbonate 27, anion gap of 8, BUN and creatinine ____ and 0.7, glucose of 201. Estimated GFR 105. CBC: White count 6.6, H and H 10.8 and 33.7, platelets of 220. Chest x-ray shows cardiomegaly, pulmonary vascular congestion, bilateral perihilar infiltrates. Urine culture as described above, greater than ____ E. coli. Blood cultures 1 out of 2 with Gram-positive cocci consistent with Staph. Initial lactic acid 1.6. ASSESSMENT: Complicated genitourinary tract infection in the setting of a foreign body, specifically suprapubic catheter. The patient with a neurogenic bladder, apparently it was timed with exchange, has notably had multiply resistant Escherichia coli in November. We will continue cefepime based on previous susceptibility results. It is not an extended spectrum beta-lactamases. Additionally, has a positive blood culture. I think this is likely contaminant. Certainly does not correlate with the urinary tract infection. Has been started on vancomycin as it is reasonable to continue that for present. At this point, she is not overtly unstable. Continue to monitor expectantly. Add incentive spirometry. X-ray changes are more consistent with fluid overload, but certainly at risk for aspiration and pneumonitis and should have adequate gram-negative coverage from the cefepime. Monitor expectantly. She remains tenuous. <ELECTRONICALLY SIGNED> By: Kenny Kahn MD 01/07/21 0815 [id number] Kenny Kahn MD /nt
--- NOTE | 2021-01-07 14:38 | NUR ---
ASSUMED CARE OF PATIENT AT 0700. ASSESSMENT CHARTED. MEDICATIONS ADMINISTERED PER EMAR. VSS. PATIENT IS A&OX4 AND "FEELING MUCH MORE AWAKE TODAY", CONCERNED ABOUT DATE OF DISCHARGE AND PATIENT INFORMED WILL BE STAYING OVER WEEKEND. VOICES PAIN WHEN BEING REPOSITIONED ON BACK. PRN PAIN MEDS ADMINISTERED. REQUESTED XANAX TO BE HELD BECAUSE PATIENT DID NOT WANT TO BE "KNOCKED OUT". BM X2 THIS DAY. L SIDE SUPPORTED ON PILLOWS. MAKES NEEDS KNOWN. REWUATED TO SEE PSYCHIATRIST. PROVIDER PAGED. FALL PRECAUTIONS IN PLACE. WILL CONTINUE TO MONITOR AND FOLLOW PLAN OF CARE
[2021-01-07 15:37] VITALS: BP 150/75
--- NOTE | 2021-01-07 15:59 | NUR ---
PT CONTINUES ON IV ABX AT THIS TIME. THERAPY DISCHARGED PT AND SHE IS [facility]IN [facility] AT BASELINE AND NO IDENTIFIED SKILLABLE NEEDS. SHOULD PT BE MEDICALLY STABLE TO DISCHARGE OVER THE WEEKEND PLAN WOULD BE FOR PT TO RETURN TO HER SISTER'S HOUSE AND RESUME HH SERVICES WITH [facility]. PT WILL NEED STRETCHER TRANSPORT SET UP THROUGH [place]. [facility] P:[phone] F:[phone] [employer] P:
[2021-01-07 20:06] VITALS: BP 125/60
--- NOTE | 2021-01-08 00:09 | NUR ---
PT IS A/O X4 AND IS ON BEDREST. ROOM AIR. MS STATUS. SUPRAPUBIC CATHETER IN PLACE AND DRAINING YELLOW URINE. NO BM THIS SHIFT. REPOSITIONED FOR COMFORT OFTEN. CHELSEA MIDLINE IN PLACE AND SHOWING NO S/S OF INFECTION. BS ELEVATED. LISPRO GIVEN DIRECTED AT HS ALONG WITH LANTUS. C/O OF FEELINGS OF DEPRESSION AND SADNESS. AT THIS TIME, PT IS LYING IN HER BED AND APPEARS TO BE SLEEPING. LEFT ARM ELEVATED ON PILLOWS FOR COMFORT. REFUSED SLEEP MEDICATION AND XANAX AT BEDTIME. FALL RPECAUTIONS IN PLACE, CALL LIGHT IS WITHIN REACH. WILL CONTINUE TO MONITOR.
[2021-01-08 07:51] VITALS: BP 146/87
[2021-01-08 17:57] VITALS: BP 146/75
--- NOTE | 2021-01-08 18:44 | NUR ---
Patient had a big volume bowlmovement, watery, brown color this afternoon, as soon as the staff cleaned it, she had a second bowl movement. Dr. Shanks agreed to have a rectal tube inserted into patient. patient agreed to have the tube, after the third bowlmovement. The third bowlmovement was very small amount. will pass it on to the night nurse to monitor it.
[2021-01-08 20:06] VITALS: BP 148/77
--- NOTE | 2021-01-09 03:26 | NUR ---
Assumed pt care at 1900. A/OX4,VSS. C/o pain to LLE w/movement,medicated per EMAR with relief reported. Pt has Left side hemiparesis and requires max assist with cares. Suprapubic catheter in palce with light yellow noted; Fecal management in place with small liquid stool noted;pt has a lot of flatulence. IVF infusing w/o any problems via LUE midline. Pt resting quietly at this time w/o any dsitress noted. Pt refused some HS meds indicating she does not need them;see EMAR. Call light/personal items within reach.
[2021-01-09 08:37] VITALS: BP 128/85
[2021-01-09 15:50] VITALS: BP 119/67
--- NOTE | 2021-01-09 16:17 | NUR ---
ASSUMED CARE OF PATIENT AT SHIFT CHANGE. ASSESSMENT CHARTED. MEDICATIONS ADMINISTERED PER EMAR. VSS. PATIENT IS A&OX4 AND MAKES NEEDS KNOWN. NS INFUSING ON R HAND W NO ISSUES. PATIENT STILL VOICING SADNESS AND FEELING DEPRESSED D/T HER HUSBANDS RECENT PASSING. FECAL INCONT SYSTEM D/C'd PER PROVIDER ORDER. PATIENT INCONT AND STILL HAVING MULTIPLE STOOLS PER DAY. REPOSITIONED Q2HRS OR MORE NEEDED. L UA FLUSHING WELL AND INFUSING ABX W NO ISSUES. SUPRAPUBIC CATHETER C/D/I WITH NO ISSUES THIS DAY. VOICED NO OTHER NEEDS. WILL CONTINUE TO MONITOR
[2021-01-09 18:16] LABS: URINE BILIRUBIN NEGATIVE (Negative); URINE BLOOD TRACE (Negative); URINE CLARITY CLEAR; URINE COLOR YELLOW; URINE GLUCOSE-RANDOM* NEGATIVE (Negative); URINE KETONES TRACE (Negative); URINE LEUKOCYTES-REFLEX TRACE (Negative); URINE NITRITE-REFLEX NEGATIVE (Negative); URINE PROTEIN (DIPSTICK) 1+ (Negative); URINE SPECIFIC GRAVITY 1.025 (1.005-1.035); URINE UROBILINOGEN 0.2 E.U./dl (0.2-1.0)
[2021-01-09 18:45] LABS: SQUAMOUS >10 Many /LPF (0-3); URINE WBC-REFLEX 6-15 Few /HPF (0-5)
[2021-01-09 18:46] LABS: BACTERIA-REFLEX 1-9 Few /HPF (None Seen)
[2021-01-09 18:47] LABS: CASTS None Seen /LPF (None Seen); CRYSTALS None Seen /LPF (None Seen); URINE RBC 3-10 Few /HPF (0-2)
[2021-01-09 19:16] VITALS: BP 140/77
--- NOTE | 2021-01-10 06:15 | NUR ---
PT LYING IN BED. REMAINS INCONTINENT OF STOOL. LORTAB PROVIDING PAIN RELIEF. POSSIBLE DISCHARGE 01/10 HOME WITH SISTER AND HOME HEALTH. RESTING COMFORTABLY. NO NEEDS VOICED. CALL LIGHT WITHIN REACH. FREQUENT OBSERVATION.
[2021-01-10 08:00] VITALS: BP 148/74
[2021-01-10 10:14] VITALS: BP 125/77
--- NOTE | 2021-01-10 11:18 | NUR ---
Received asleep on bed, rousable. Due medications given as prescribed, able to swallow meds w/o difficulty. On room air. Vital signs stable. On MS, not on telemetry; no complains and signs of chest pain, crushing sensation and heaviness. Assisted in ADLs. On carb controlled diet- tolerating well; no nausea, no vomiting and no abdominal pain noted. On blood sugar monitoring, taken and recorded accordingly; with sliding scale insulin ordered. With suprapubic cath in place- output measured and recorded accordingly. With L upper arm midline in place- NS at 125cc/hr, infusing well. Complained of pain, due PRN pain meds given as prescribed. To continue monitoring patient. Pt seen and examined by Dr Allen this AM, discharge orders made- a/w physician to complete instructions- CM aware; home with home health- pt updated.
[2021-01-10] MEDS ORDERED: AMOX TR-K CLV1 EAC4 PO (13:40)
[2021-01-10] MEDS ORDERED: ACETAMINOPHEN325 M1 PO (13:41)
[2021-01-10] MEDS ORDERED: MIRALAX17 GM PO (13:41)
--- NOTE | 2021-01-10 14:52 | NUR ---
CARE TEAM INDICATED THAT PT IS MEDICALLY STABLE TO DISCHARGE BACK TO HER SISTER'S HOUSE THIS DAY[place] [address] [place] [address]. CM SET UP [facility] TRANSPORT BETWEEN [phone]. CM PROVIDED PT'S SISTER'S PHONE NUMBER. ORDERS FAXED TO [facility]. NO OTHER INTERVENTION INDICATED. CASE CLOSED.
--- NOTE | 2021-01-10 16:23 | NUR ---
FAXED DISCHARGE ORDER, SUMMARY AND THERAPY NOTES TO [facility] [place]. CONFIRMED WITH MENDOZA/LIAISON THAT THEY RECEIVED AND WILL BEGIN SERVICE ON 01/12/21. FEED MANAGEMENT ADVISOR'S NOTES STATED PATIENT TO DISCHARGE TO SISTER'S RESIDENCE AT [address] [place] [address]. SERVICE ADDRESS PROVIDED TO [facility]. [facility] P [phone]; FAX [phone]
== END 2021-01-10 16:55 | disposition home health service (06) | DRG 690 ==
LOC: ER 19:06 → EROBS 22:11 → 4W 22:11
PROVIDERS: Emergency Medicine; Nurse Practitioner Family; Specialist; ADMIT Internal Medicine; ATTEND Internal Medicine
DX: N39.0 Urinary tract infection, site not specified (principal); K51.90 Ulcerative colitis, unspecified, without complications; I69.354 Hemiplegia and hemiparesis following cerebral infarction affecting left non-dominant side; Z68.44 Body mass index [BMI] 60.0-69.9, adult; E46 Unspecified protein-calorie malnutrition; Z16.12 Extended spectrum beta lactamase (ESBL) resistance; M17.0 Bilateral primary osteoarthritis of knee; E11.9 Type 2 diabetes mellitus without complications; F31.9 Bipolar disorder, unspecified; I10 Essential (primary) hypertension; E78.5 Hyperlipidemia, unspecified; F41.9 Anxiety disorder, unspecified; E66.01 Morbid (severe) obesity due to excess calories; T19.8XXA Foreign body in other parts of genitourinary tract, initial encounter; X58.XXXA Exposure to other specified factors, initial encounter; N31.9 Neuromuscular dysfunction of bladder, unspecified; K21.9 Gastro-esophageal reflux disease without esophagitis; G47.00 Insomnia, unspecified; G25.81 Restless legs syndrome; G89.4 Chronic pain syndrome; B96.20 Unspecified Escherichia coli [E. coli] as the cause of diseases classified elsewhere; R53.81 Other malaise; T37.8X5A Adverse effect of other specified systemic anti-infectives and antiparasitics, initial encounter; Z79.899 Other long term (current) drug therapy; Z79.4 Long term (current) use of insulin; Y93.89 Activity, other specified; Y92.89 Other specified places as the place of occurrence of the external cause; Y99.8 Other external cause status; Z74.01 Bed confinement status
CPT/HCPCS: 10040; 27000

== ENCOUNTER 2021-01-13 12:14 | Emergency (ER) | payer OTHER ==
[~2021-01-13] VITALS: Ht 162.6 cm; Wt 158.8 kg
[~2021-01-13 12:14] MED LIST changes: +ACETAMINOPHEN325 M1 PO; +AMOX TR-K CLV1 EAC4 PO; +BACLOFEN 10MG T10 MG PO; +MIRALAX17 GM PO
[2021-01-13 15:08] LABS: URINE BILIRUBIN NEGATIVE (Negative); URINE BLOOD 2+ (Negative); URINE CLARITY CLEAR; URINE COLOR YELLOW; URINE GLUCOSE-RANDOM* NEGATIVE (Negative); URINE KETONES 1+ (Negative); URINE LEUKOCYTES-REFLEX 1+ (Negative); URINE NITRITE-REFLEX NEGATIVE (Negative); URINE PROTEIN (DIPSTICK) 2+ (Negative); URINE UROBILINOGEN 0.2 E.U./dl (0.2-1.0)
[2021-01-13 15:19] LABS: SQUAMOUS 0-3 Few /LPF (0-3); URINE RBC 3-10 Few /HPF (0-2)
[2021-01-13 15:20] LABS: BACTERIA-REFLEX None Seen /HPF (None Seen); URINE WBC-REFLEX 0-5 Rare /HPF (0-5)
[2021-01-13] MEDS ORDERED: DIFLUCAN150 M1 PO (15:50)
[2021-01-13 16:38] VITALS: BP 144/65
== END 2021-01-13 20:02 | disposition home or self-care (01) ==
LOC: ER 12:14
PROVIDERS: Nurse Practitioner Family
DX: N89.8 Other specified noninflammatory disorders of vagina (principal); I10 Essential (primary) hypertension; E11.9 Type 2 diabetes mellitus without complications; E78.5 Hyperlipidemia, unspecified; Z79.4 Long term (current) use of insulin; Z79.2 Long term (current) use of antibiotics; Z79.899 Other long term (current) drug therapy

== ENCOUNTER 2021-02-04 10:46 | Emergency (ER) | payer OTHER ==
[~2021-02-04] VITALS: Ht 165.1 cm; Wt 181.4 kg
--- NOTE | ~2021-02-04 | EMS ---
[address] [address] EMS Patient Care Report Name: KAILA CORONA Room #: PRE M.R.#: [id number] Admission: Attend Phys: Discharge: Date of : 63 Report #: [id number] THIS REPORT FOR: //name// Report Transmitted: 02/04/2021 10:26 EMS Care Summary [facility] [place] [id number] @ 02/04/2021 10:02 Incident Location [address] [place] [address] Patient KAILA CORONA Female, 55 Years 1965 Patient Address [address] [place] [address] Patient History Other,Diabetes,Hypertension (HTN),Stroke/CVA,Morbid Obesity,Bipolar II Disorder,Chronic Pain, Patient Allergies No known allergies, Patient Medications Insulin, Victoza, Chief Complaint UTI Disposition Transported No Lights/[place] Dispatch Reason Sick Person Transported To [facility] Narrative S51 responded emergent to sick person call. S51 arrived to find patient sitting Fowlers on living room couch. Patient's airway was patent. Breathing regular and non labored. Skin pink warm and dry. Peripheral pulses present, equal, and [address] [address] EMS Patient Care Report Name: KAILA CORONA Room #: PRE Jeanette#: [id number] Admission: Attend Phys: Discharge: Date of : 63 Report #: [id number] strong. Patient was A&Ox4 with a GCS of 15. Patient complained of UTI. She stated it was burning, and rates it at a 9/10 on pain scale. Patient was lifted onto cot using patient's Haulter Lift, then secured with seatbelts. Patient was moved to the back of the ambulance. Patient has a catheter in place. Patient stated its due to being bedridden. Patient had a little blood in catheter. Patient stated she had her catheter replaced three days ago, and the burning started approx. two days ago. Patient's glucose was 273 mg/dL. and patient had a elevated BP. All other vitals remained within normal range. No abnormalities on physical exam. Patient transported non-emergent to [facility]. Patient remained A&Ox4 throughout transport. Patient care transferred to ARSH Sauceda in room 12. Initial Vitals @10:41P: 82,R: 16,BP: 172/104,Pain: 9/10,GCS: 15,SpO2: 97,Revised Trauma: 12, @10:35P: 80,R: 16,BP: 187/103,Pain: 9/10,GCS: 15,CO: 20,SpO2: 95,Revised Trauma: 12, @10:23P: 80,R: 16,BP: 165/98,Pain: 9/10,GCS: 15,Temp: 98.3F,Glucose: 273,CO: 25,SpO2: 96,Revised Trauma: 12, Assessments @10:24MENTAL:Person Oriented,Time Oriented,Event Oriented,Place Oriented,SKIN:HEENT:LUNG SOUNDS:General: No Abnormalities,ABDOMEN:General: No Abnormalities,PELVIS//GI:Genital Injury,EXTREMITIES:Left Arm: Paralysis,Right Arm: No Abnormalities,Left Leg: No Abnormalities,Right Leg: No Abnormalities,PULSE:NEURO: Impression Urinary Tract Infection (UTI) Procedures @10:233-Lead ECGResponse: UnchangedSucceeded@10:20ALS AssessmentResponse: UnchangedSucceeded Timeline 10:01,Call Received 10:01,Psap Call 10:02,Dispatched 10:04,En Route 10:08,Initial Responder On Scene 10:10,On Scene 10:11,At Patient 10:20,ALS Assessment,Response: UnchangedSucceeded, 10:23,3-Lead ECG,Response: UnchangedSucceeded, 10:23,BP: 165/98 M,PULSE: 80,RR: 16 R,SPO2: 96 Ox,ETCO2: ,B,PAIN: 9,GCS: 15, 10:24,[place] [address] EMS Patient Care Report Name: KAILA CORONA Room #: PRE M.R.#: [id number] Admission: Attend Phys: Discharge: Date of : 63 Report #: [id number] 10:35,BP: 187/103 M,PULSE: 80,RR: 16 R,SPO2: 95 Ox,ETCO2: ,BG: ,PAIN: 9,GCS: 15, 10:41,BP: 172/104 M,PULSE: 82,RR: 16 R,SPO2: 97 Ox,ETCO2: ,BG: ,PAIN: 9,GCS: 15, 10:41,At Destination 10:42,Transfer Patient 11:10,Call Closed Disclaimer v1.1 Copyright 2020 [employer] This EMS Care Summary contains data elements from the applicable legal record (which may be displayed differently). It is designed to provide pertinent information for the following purposes: continuity of care, clinical quality, and state data reporting. The complete legal record is available to ED staff and administrators of the receiving hospital in [employer] Patient Tracker. All data is provided "as is."
[~2021-02-04 10:46] MED LIST changes: +DIFLUCAN150 M1 PO
[2021-02-04 11:17] LABS: URINE BLOOD 1+ (Negative); URINE CLARITY CLOUDY; URINE COLOR ORANGE; URINE GLUCOSE-RANDOM* 1+ (Negative); URINE KETONES TRACE (Negative); URINE PROTEIN (DIPSTICK) 3+ (Negative); URINE UROBILINOGEN >= 8.0 E.U./dl (0.2-1.0)
[2021-02-04 11:21] LABS: URINE LEUKOCYTES-REFLEX 2+ (Negative); URINE NITRITE-REFLEX POSITIVE (Negative)
[2021-02-04 11:23] LABS: ICTOTEST (BILI CONFIRMATORY) Negative (Negative); URINE BILIRUBIN NEGATIVE (Negative)
[2021-02-04 11:32] LABS: CALCIUM OXALATE 0-3 Few /LPF (None Seen)
[2021-02-04 11:33] LABS: CASTS None Seen /LPF (None Seen); SQUAMOUS 0-3 Few /LPF (0-3)
[2021-02-04 11:45] LABS: MUCUS 0-3 Light strn/LPF (None Seen); URINE WBC-REFLEX 6-15 Few /HPF (0-5)
[2021-02-04 11:46] LABS: BACTERIA-REFLEX >30 Many /HPF (None Seen); URINE RBC 3-10 Few /HPF (0-2)
[2021-02-04] MEDS ORDERED: DIFLUCAN150 M1 PO (13:07)
[2021-02-04] MEDS ORDERED: MACROBID 100 M100 MG PO (13:07)
[2021-02-04] MEDS ORDERED: NYAMYC15 GM TOP (13:14)
[2021-02-04 15:42] VITALS: BP 172/89
== END 2021-02-04 15:43 | disposition home or self-care (01) ==
LOC: ER 10:46
PROVIDERS: Emergency Medicine
DX: N39.0 Urinary tract infection, site not specified (principal); B37.3 Candidiasis of vulva and vagina; I10 Essential (primary) hypertension; E78.5 Hyperlipidemia, unspecified; E11.9 Type 2 diabetes mellitus without complications; Z79.4 Long term (current) use of insulin; Z79.899 Other long term (current) drug therapy

== ENCOUNTER 2021-03-04 14:48 | Emergency (ER) | payer OTHER ==
[~2021-03-04] VITALS: Ht 162.6 cm; Wt 147.4 kg
[~2021-03-04 14:48] MED LIST changes: +NYAMYC15 GM TOP
[2021-03-04 15:09] LABS: URINE BILIRUBIN NEGATIVE (Negative); URINE BLOOD 1+ (Negative); URINE CLARITY CLEAR; URINE COLOR YELLOW; URINE GLUCOSE-RANDOM* NEGATIVE (Negative); URINE KETONES NEGATIVE (Negative); URINE PROTEIN (DIPSTICK) 2+ (Negative); URINE SPECIFIC GRAVITY 1.025 (1.005-1.035); URINE UROBILINOGEN 0.2 E.U./dl (0.2-1.0)
[2021-03-04 15:16] LABS: URINE LEUKOCYTES-REFLEX 2+ (Negative); URINE NITRITE-REFLEX POSITIVE (Negative)
[2021-03-04 15:18] LABS: SQUAMOUS 0-3 Few /LPF (0-3); URINE RBC None Seen /HPF (NONE SEEN); URINE WBC-REFLEX >25 Many /HPF (0-5)
[2021-03-04 15:19] LABS: BACTERIA-REFLEX 1-9 Few /HPF (None Seen); CRYSTALS None Seen /LPF (None Seen)
[2021-03-04] MEDS ORDERED: CEPHALEXIN500 MG PO (16:10)
[2021-03-04] MEDS ORDERED: DIFLUCAN200 MG PO (16:10)
[2021-03-04] MEDS ORDERED: NYSTATIN 100,0015 G1 TOP (16:10)
[2021-03-04 16:15] VITALS: BP 164/92
== END 2021-03-04 16:10 | disposition home or self-care (01) ==
LOC: ER 14:48
PROVIDERS: Nurse Practitioner
DX: N39.0 Urinary tract infection, site not specified (principal); B37.89 Other sites of candidiasis; L30.8 Other specified dermatitis; I10 Essential (primary) hypertension; E11.9 Type 2 diabetes mellitus without complications; E78.5 Hyperlipidemia, unspecified; Z79.4 Long term (current) use of insulin; Z79.899 Other long term (current) drug therapy

== ENCOUNTER 2021-03-08 12:01 | Inpatient (IN) | payer OTHER ==
[~2021-03-08] VITALS: Ht 162.6 cm; Wt 143.8 kg
[~2021-03-08 12:01] MED LIST changes: +CEPHALEXIN500 MG PO; +DIFLUCAN200 MG PO; +NYSTATIN 100,0015 G1 TOP
[2021-03-08 12:02] VITALS: BP 106/54
--- NOTE | 2021-03-08 15:06 | NUR ---
VAT CONSULTED FOR PICC PLACEMENT. RIGHT BASILIC SINGLE PICC INSERTED, TRIMMED 48CM WITH 0CM EXTERNAL. TIP LOCATION VERIFIED WITH 3CG. PT TOLERATED WELL. RELEASED FOR USE, PER HOSPITAL POLICY.
[2021-03-08 16:27] LABS: ABSOLUTE NEUTROPHILS 4.1 thou/uL (1.4-8.2); BASOPHILS 0.4 % (0.0-2.0); EOSINOPHILS 5.4 % (0.0-3.0); HEMATOCRIT 35.5 % (37.0-47.0); HEMOGLOBIN 11.3 gm/dL (12.0-15.0); LYMPHOCYTES 28.3 % (24.0-44.0); MCH 26.3 pg (26.0-34.0); MCHC 31.9 g/dL (28.0-37.0); MCV 82.4 fL (80.0-100.0); MONOCYTES 7.2 % (1.0-8.0); PLATELET COUNT 225 thou/uL (150-400); POLYS 58.7 % (36.0-66.0); RBC 4.31 mil/uL (4.20-5.00)
[2021-03-08 16:29] LABS: URINE CLARITY CLEAR; URINE COLOR ORANGE
[2021-03-08 16:33] LABS: ICTOTEST (BILI CONFIRMATORY) Negative (Negative)
[2021-03-08 16:39] LABS: URINE REDUCING SUBSTANCE NEGATIVE
[2021-03-08 16:42] LABS: POTASSIUM 3.7 mmol/L (3.5-5.1)
[2021-03-08 16:48] LABS: TOTAL BILIRUBIN 0.5 mg/dL (0.2-1.0); TOTAL PROTEIN 7.1 g/dL (6.4-8.2)
[2021-03-08 16:49] LABS: SSA (PROTEIN CONFIRMATORY) TRACE (APPROX. 5) mg/dL (Negative)
[2021-03-08 16:50] LABS: SQUAMOUS 0-3 Few /LPF (0-3)
[2021-03-08 16:51] LABS: BACTERIA-REFLEX >30 Many /HPF (None Seen); CASTS None Seen /LPF (None Seen); CRYSTALS None Seen /LPF (None Seen); URINE RBC 3-10 Few /HPF (NONE SEEN); WBC CLUMPS Rare (None Seen)
[2021-03-08 16:52] LABS: MUCUS 0-3 Light strn/LPF (None Seen); YEAST-REFLEX Present (None Seen)
[2021-03-08 18:55] VITALS: BP 175/88
[2021-03-08 20:21] VITALS: BP 147/87
[2021-03-08 21:20] VITALS: BP 90/63
--- NOTE | 2021-03-09 04:03 | NUR ---
NEW PATIETN FOR UTI. FLUIDS STARTED AND ALL HS MEDS GIVEN. PATIENT C/O PAIN AND DECLINED TYL. CALLED NEW ORDER OF MACY 5/325 Q 8 HOURS. PATIENT HAS SUPRA PUBIC CATH, URINE IS ORAGE IN COLOR.FALL PRECAUTION IN PLACE. PATIENT IN BED ASLEEP AT THIS TIME BREATHING REGULAR AND UNLABOURED.
[2021-03-09 06:34] LABS: ABSOLUTE NEUTROPHILS 3.8 thou/uL (1.4-8.2); BASOPHILS 0.4 % (0.0-2.0); EOSINOPHILS 5.7 % (0.0-3.0); HEMATOCRIT 33.5 % (37.0-47.0); LYMPHOCYTES 22.7 % (24.0-44.0); MCH 26.9 pg (26.0-34.0); MCHC 32.9 g/dL (28.0-37.0); MCV 81.8 fL (80.0-100.0); MONOCYTES 9.2 % (1.0-8.0); PLATELET COUNT 221 thou/uL (150-400); RDW 13.1 % (10.5-14.5); WBC 6.2 thou/uL (4.0-11.0)
[2021-03-09 06:42] LABS: CALCIUM 8.7 mg/dL (8.5-10.1); MAGNESIUM 1.5 mg/dL (1.8-2.4); POTASSIUM 3.8 mmol/L (3.5-5.1)
[2021-03-09 08:00] VITALS: BP 104/68
--- NOTE | 2021-03-09 12:32 | NUR ---
PT ADMITTED RELATED TO UTI AND UROGENITAL CANDIASIS. CM REVIEWED CHART AND SPOKE WITH CARE TEAM. PT IS FAMILIAR TO CM FROM PREVIOUS ADMISSIONS. PT IS IN CONTACT ISOLATION. CM ATTEMPTED PC TOPT'S ROOM WITH NO RESPONSE. PT HAD SUPRAPUBIC CATH AND IS FOLLOWED [facility] FOR CATH CARE WRITER PRODUCER. PT HAS A WC AND ROBIN LIFT IN THE HOME SETTING FOR USE. PT'S DTR IS HER PAID CAREGIVER THROUGH [employer] 4HRS 7 DAYS A WEEK. PT HAD DISCHARGED TO HER SISTER'S HOUSE UPON LAST DC HER DTR WAS ON VACATION. PT IS ON IV CEFTAZIDIME Q8 CURRENTLY AWAITING ID INPUT FOR WHETHER PT WILL NEED IV ABX UPON DC. IF NEEDS WOULD BE INTERESTED IN LOOKING AT [facility]. CM FOLLOWING REGARDING DC PLANNING.
[2021-03-09 15:05] LABS: URINE BILIRUBIN NEGATIVE (Negative); URINE BLOOD 1+ (Negative); URINE CLARITY CLEAR; URINE GLUCOSE-RANDOM* TRACE (Negative); URINE KETONES NEGATIVE (Negative); URINE PROTEIN (DIPSTICK) 1+ (Negative)
[2021-03-09 15:06] LABS: URINE COLOR ORANGE; URINE LEUKOCYTES-REFLEX 3+ (Negative); URINE NITRITE-REFLEX POSITIVE (Negative)
[2021-03-09 15:14] LABS: BACTERIA-REFLEX 1-9 Few /HPF (None Seen); CASTS None Seen /LPF (None Seen); CRYSTALS None Seen /LPF (None Seen); SQUAMOUS >10 Many /LPF (0-3); URINE RBC 3-10 Few /HPF (NONE SEEN); URINE WBC-REFLEX >25 Many /HPF (0-5)
--- NOTE | 2021-03-09 19:40 | NUR ---
Assumed pt care at 7am.Pt in bed sleeping till around 10am. Assessment completed.vss.Pt tolerated meds and diet.Dr Stratton here,order noted.Suprapubic cath replaced early this am by Urologist.Urine obtained and sent to lab for sensitivity.Ultra sound done today and report placed in chart.Adequate u/o noted per catheter.Pt in isolation for MDR.Will cntinue to monitor.
[2021-03-09 20:33] VITALS: BP 139/86
[2021-03-09 21:34] VITALS: BP 139/86
--- NOTE | 2021-03-10 02:37 | NUR ---
UPON SHIFT REPORT, PT REPORTS 8/10 PAIN IN LLE. UPON SHIFT ASSESSMENT, PT SLEEPING, ABLE TO AROUSE TO NAME, DROWSY OTHERWISE, FALLING BACK TO SLEEP QUICKLY, FLACC OF 0. PT RESTING WITHOUT INTERRUPTION OR OBSERVATION OF PAIN , DISCOMFORT, OR SOB WHILE ON ROOM AIR. PT RESTING IN BED THROUGHOUT SHIFT, FREQUENT REPOSITIONING ENCOURAGED, REPOSITIONING ASSISTANCE PROVIDED WHEN PT AGREEABLE. MAX ASSIST/LIFT DEVICE NEEDED FOR REPOSITIONING. PT TOLERATING PO INTAKE OF FLUIDS AND HEART HEALTHY DIET WITHOUT ISSUE. PT WITHOUT NAUSEA OR EMESIS. SUPRAPUBIC CATH REMAINS IN PLACE, PATENT WITH SECUREMENT DEVICE. LYMPHEDEMA WRAPS TO BLE REMAIN CLEAN, DRY AND INTACT. PT ENCOUARGED TO NOTIFY STAFF FOR ALL NEEDS, CALL LIGHT WITHIN REACH, BED ALARM ON, BED LOCKED IN LOWEST POSITION, FREQUENT MONITORING WILL CONTINUE.
--- NOTE | 2021-03-10 07:02 | NUR ---
PROGRESS PT A/O X4 DEPRESSED ABOUT HEALTH STATUS, REPORTS SHE HAS NOT GOTTEN ANY BETTER IN YEARS. SINGLE LUMEN PICC TO DAVID FLUSHES WITHOUT DIFFICULTY AND LAB DRAW WITHOUT DIFFICULTY. SUPRAPUBIC FRANCO IN PLACE DRAINING LARGE AMOUNTS OF ORANGE YELLOW URINE. DROWSY THROUGHOUT SHIFT BUT WOKE THIS AM RATING PAIN A 7.
--- NOTE | 2021-03-10 13:54 | NUR ---
PAITNET RESTING IN BED THROUGH OUT THE SHIFT. LETS NEEDS BE KNOWN. RE-DRESSED PICC LINE. IV ABX GIVEN ORDERED. PRN HYDROCODONE GIVEN FOR BUTTOCK PAIN. PATIENT REPOSITIONED [id number]. WAITING FOR FINAL CULTURE RESULTS, PLAN IS TO DISCHARGE TO FACILITY FOR IV ABX TREATEMENT.
--- NOTE | 2021-03-10 14:44 | NUR ---
CM FOLLOWED UP WITH PT AT BEDSIDE THIS AFTERNOON PT IS MORE ALERT. CM DISCUSSED POSSIBLE NEED FOR PROLONGED IV ABX TREATMENT. CM EXPLAINED HOME INFUSION VS. SKILLED FOR IV ABX. PT INDICATED SHE WOULD PREFER TO GO TO A FACILITY IF SHE NEEDS IV ABX. SHE ASKED THAT REFERRAL BE SENT TO [facility]. CM FAXED REFERRALS. [facility] THINKS THEY AREN'T IN NETWORK WITH [facility]UAL [facility]PLETE BUT THEY ARE CONFIRMING. STILL AWAITING CULTURES.
--- NOTE | 2021-03-10 15:58 | NUR ---
Assumed pt care at 1500 from Liliya beckman.Pt in bed resting and watching tv. Meds given as ordered. No verbal c/o.Will continue to m onitor.
--- NOTE | 2021-03-10 16:28 | EKG ---
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: HALLE : 1965 Requested By: Kenny Kahn Order Number: [id number] : Colby Bourgeois Measurements Intervals [place] Rate: 69 P: 64 VT: 176 QRS: 25 QRSD: 93 T: 41 QT: 406 QTc: 435 Interpretive Statements Sinus rhythm Consider left ventricular hypertrophy Baseline wander in lead(s) II,III,aVF Compared to ECG 02/18/2019 09:36:44 No significant changes Electronically Signed On 03-10-2021 16:27:55 CDT by Colby Bourgeois [email or web address] <ELECTRONICALLY SIGNED> By: Colby Bourgeois MD, [facility] 03/10/21 1627 143 143 Colby Bourgeois MD, [facility] /EPI
[2021-03-10 19:42] VITALS: BP 146/85
--- NOTE | 2021-03-11 03:49 | NUR ---
PT CARE ASSUMED WITH PT IN BED.PT IS ON BEDREST AND A MAX ASSIST X3-4.PT IS A/O X4.PT HAS A SUPRAPUBIC CATHETER I PLACE.IV RT UA PICC SINGLE LUMEN WITH NS AT 75 CC/HR.PT C/O PAIN AND PAIN MANAGED WITH NORCO WITH PARTIAL RELIEF.PT REQUESTED FOR WRAP TO BE REMOVED OFF THE LEG C/O BURNING BONE.PT IS ACCUCHECK ACHS WITH SSI.PT IS ON ROOM AIR/.WILL CONTINUE TO MONITOR
[2021-03-11 08:18] VITALS: BP 128/65
--- NOTE | 2021-03-11 09:21 | NUR ---
CM REVIEVED PC FROM AURA GALVAN FROM [facility] AT 9:32 YESTERDAY EVENING. HE INDICATED THAT THEY ARE ACCEPTING OF PT ONCE MEDICALLY STABLE. CM TO FOLLOW UP THIS AM ASK THAT THEY SUBMIT FOR AUTH AND REACH OUT TO [facility] IF NEEDED. CM TO FOLLOW INDICATED WITH DC PLANNING.
--- NOTE | 2021-03-11 11:10 | NUR ---
Assumed pt care at 7am.Pt in bed sleeping but arousable.Assessment completed. vss.Woke pt up around 9am for breakfast and am meds.Pt tolerated meds but took few bites of scramble egg.Fresh fruits given per request.Dr Stratton here, comtemplating about pt dc home today with home health but wanted ID intervention for choice of antibiotic.Fall bundle in place.Ot here to wrap bilat lower extremities with kerlix and umer wrap.No verbal c/o.Ivf infusing as ordered.Will continue to monitor.
[2021-03-11 11:36] VITALS: BP 128/65
[2021-03-11 11:38] VITALS: BP 128/65
[2021-03-11] MEDS ORDERED: AMOX TR-K CLV1 EAC4 PO (12:35)
[2021-03-11] MEDS ORDERED: NYAMYC15 GM TOP (12:35)
[2021-03-11 13:36] VITALS: BP 128/65
--- NOTE | 2021-03-11 15:19 | NUR ---
CARE TEAM INDICATED THAT PT DOESN'T NEED IV ABX UPON DC THAT PT WILL SWITCH TO AN ORAL ABX. CM ADMINISTRATIVE ANALYST RECIEVED PC FROM PT'S DTR [facility] AND SHE INDICATED THAT SHE AND HER CHILDREN WENT OUT OF TOWN AND AREN'T ABLE TO TAKE PT HOME THIS DAY. CM CALLED AND SPOKE WITH PT'S SISTER RADHA AND SHE INDICATED THAT SHE CAN'T TAKE PT TO HER HOUSE AT THIS TIME EITHER. PT'S DTR CALLED HER FRIEND AND SHE IS OUT OF TOWN. DTR INDICATED THAT SHE AND FAMILY WILL BE BACK IN TOWN TOMORROW AND WILL BE ABLE TO ACCEPT PT IN THE HOME AROUND 1900. CALL [facility] AT 1600 TO SET UP TRANSPORT AND REQUEST TELEGRAPH PLANT MAINTAINER AT 1900 .
[2021-03-11 15:57] VITALS: BP 141/70
[2021-03-11 20:20] VITALS: BP 111/69
[2021-03-12 07:40] VITALS: BP 141/70
--- NOTE | 2021-03-12 07:46 | NUR ---
PT WAS OBSERVED WATCHING TV ON HER BED AT SHIFT CHANGE.PT WAS REPOSITIONED IN BED PER HER REQUEST.PT HAD TWO LOOSE BM THIS SHIFT.SUBHASH CARE DONE,ZGUARD APPLIED.FALL AND ISOLATION PRECAUTIONS MAINTAINED.PT REF HER TRAZADONE LAST NIGHT.PT LOOKING FORWARD TO BE DC'D LATER TODAY.REPORT TO AM NURSE.
[2021-03-12 16:40] VITALS: BP 143/85
--- NOTE | 2021-03-12 20:01 | NUR ---
Assumed pt care this am, pt is a total care requiring 3 to 4 assists to turn and clean. Pain is managed with medications. Pt is suppose to9 leave at 7 pm but was then changed to 9 to 10 since the daughter is still not home and cannot receive her.House sup informed, tried to call transport, cannot be reached. Endorsed to the night nurse, was advised to send using kcfd.
[2021-03-12 20:08] VITALS: BP 143/79
--- NOTE | 2021-03-13 04:25 | NUR ---
PT DISCHARGED TO HOME VIA [facility] AT 2330.
== END 2021-03-12 23:35 | disposition home health service (06) | DRG 699 ==
LOC: ER 12:01 → EROBS 17:19 → 4W 17:19
PROVIDERS: Nurse Practitioner; Nurse Practitioner Family; ADMIT Hospitalist; ATTEND Hospitalist
PROC: 02HV33Z Insertion of Infusion Device into Superior Vena Cava, Percutaneous Approach (ICD-10-PCS; principal; 2021-03-08)
PROC: 0T2BX0Z Change Drainage Device in Bladder, External Approach (ICD-10-PCS; 2021-03-09)
DX: T83.511A Infection and inflammatory reaction due to indwelling urethral catheter, initial encounter (principal); I69.354 Hemiplegia and hemiparesis following cerebral infarction affecting left non-dominant side; Z16.12 Extended spectrum beta lactamase (ESBL) resistance; M31.9 Necrotizing vasculopathy, unspecified; Z16.24 Resistance to multiple antibiotics; Z68.43 Body mass index [BMI] 50.0-59.9, adult; B96.5 Pseudomonas (aeruginosa) (mallei) (pseudomallei) as the cause of diseases classified elsewhere; B96.20 Unspecified Escherichia coli [E. coli] as the cause of diseases classified elsewhere; M17.0 Bilateral primary osteoarthritis of knee; E11.9 Type 2 diabetes mellitus without complications; F31.9 Bipolar disorder, unspecified; E78.5 Hyperlipidemia, unspecified; F41.9 Anxiety disorder, unspecified; E66.01 Morbid (severe) obesity due to excess calories; I10 Essential (primary) hypertension; Y83.8 Other surgical procedures as the cause of abnormal reaction of the patient, or of later complication, without mention of misadventure at the time of the procedure; G89.4 Chronic pain syndrome; G25.81 Restless legs syndrome; G47.00 Insomnia, unspecified; N31.9 Neuromuscular dysfunction of bladder, unspecified; B99.8 Other infectious disease; Z79.899 Other long term (current) drug therapy
CPT/HCPCS: 10040; 27000

== ENCOUNTER 2021-04-15 23:37 | Inpatient (IN) | payer OTHER ==
[~2021-04-15] VITALS: Ht 162.6 cm; Wt 149.7 kg
[2021-04-15 23:39] VITALS: BP 153/96
[2021-04-15 23:55] LABS: URINE BILIRUBIN NEGATIVE (Negative); URINE BLOOD 2+ (Negative); URINE CLARITY SL CLOUDY; URINE COLOR YELLOW; URINE GLUCOSE-RANDOM* 3+ (Negative); URINE KETONES NEGATIVE (Negative); URINE NITRITE-REFLEX NEGATIVE (Negative); URINE PROTEIN (DIPSTICK) TRACE (Negative); URINE SPECIFIC GRAVITY 1.015 (1.005-1.035); URINE UROBILINOGEN 0.2 E.U./dl (0.2-1.0)
[2021-04-15 23:59] LABS: URINE LEUKOCYTES-REFLEX 1+ (Negative)
[2021-04-16] VITALS (8 sets, daily range): BP systolic 140–178; BP diastolic 88–101
[2021-04-16 00:08] LABS: BACTERIA-REFLEX >30 Many /HPF (None Seen); CASTS None Seen /LPF (None Seen); MUCUS 0-3 Light strn/LPF (None Seen); SQUAMOUS None Seen /LPF (0-3); URINE WBC-REFLEX 6-15 Few /HPF (0-5); YEAST-REFLEX Present (None Seen)
[2021-04-16 00:09] LABS: CRYSTALS None Seen /LPF (None Seen); URINE RBC 1-2 Rare /HPF (NONE SEEN)
[2021-04-16 00:27] LABS: ABSOLUTE NEUTROPHILS 4.2 thou/uL (1.4-8.2); BASOPHILS 0.4 % (0.0-2.0); EOSINOPHILS 6.1 % (0.0-3.0); HEMOGLOBIN 11.9 gm/dL (12.0-15.0); LYMPHOCYTES 24.9 % (24.0-44.0); MCH 26.9 pg (26.0-34.0); MCV 81.4 fL (80.0-100.0); MONOCYTES 8.8 % (1.0-8.0); PLATELET COUNT 214 thou/uL (150-400); POLYS 59.8 % (36.0-66.0); RBC 4.43 mil/uL (4.20-5.00); RDW 13.4 % (10.5-14.5)
[2021-04-16 00:35] LABS: CALCIUM 8.5 mg/dL (8.5-10.1); CREATININE 0.9 mg/dL (0.6-1.0)
[2021-04-16 00:37] LABS: POTASSIUM 4.4 mmol/L (3.5-5.1)
[2021-04-16 00:41] LABS: ALBUMIN 2.8 g/dL (3.4-5.0); TOTAL BILIRUBIN 0.4 mg/dL (0.2-1.0); TOTAL PROTEIN 6.9 g/dL (6.4-8.2)
--- NOTE | 2021-04-16 04:23 | NUR ---
ADMISSION COMPLETED. PT ALERT AND ORIENTED, HERE WITH UTI. IV FLUIDS STARTED. PT C/O PAIN TO LLE. SHE HAS LEFT SIDE PARALYSIS FROM PREVIOUS STROKE.AFEBRILE. EATING WELL WITH GOOD APPETITE. SP CATH PATENT, CLOUDY URINE WITH SEDIMENTS NOTED.PT DENIES NAUSEA OR VOMITING. SKIN NOT FULLY EXAMINED AT THIS TIME DUE TO PATIENT BODY HABITUS-I NEED 2 OTHER STAFF MBRS TO HELP WITH ROLLING HER OVER AND THAT LUXURY IS NOT VAILABLE RIGHT NOW-WILL CHECK AT SHIFT CHANGE. PT REPORTS FEELING TIRED AND OBSERVED DOZING OFF. ACCUCHECK OF [phone]@0319, AWAITING INSULIN FROM PHARMACY. CALL LIGHT WITHIN REACH. WILL CONTINUE WITH POC TILL EOS.
[2021-04-16 07:19] LABS: CALCIUM 8.4 mg/dL (8.5-10.1); CREATININE 0.8 mg/dL (0.6-1.0)
[2021-04-16 07:24] LABS: POTASSIUM 3.2 mmol/L (3.5-5.1)
--- NOTE | 2021-04-16 13:24 | NUR ---
ASSUMED PT CARE THIS AM. PT IS ALERT & ORIENTED X4. PT HAS IV SITE ON R HAND. PT HAS SUPRAPUBIC CATH IN PLACE SINCE DEC 2019. PT IS ON ROOM AIR. PT IS ACCUCHECK. PT HAS L SIDE PARALYSIS. NOTED RASH AND DRY SKIN ON SKIN FOLDS AND GIVEN MOISTURIZER. PT IS TURN Q2H. PT HAD US ON LE AND WAS NEGATIVE FOR DVT. PT HAD ANKLE XRAY TODAY. PT TOLERATED MEDICATION AND DIET WELL. PT ON THE BED WATCHING TV, BED ON THE LOWEST POSITION, SIDE RAILS UP, CALL LIGHT WITHIN REACH. WILL CONTINUE TO MONITOR PT. FOLLOW POC.
--- NOTE | 2021-04-17 01:51 | NUR ---
PT WAS OBSERVED LYING ON HER BED WATCHING TV AT SHIFT CHANGE.PT C/O PAIN TO HER LLE,MANAGED WITH MED.PT REQUESTED FOR SLEEP MED,BROADCAST SUPERVISOR ON DUTY NOTIFIED,ORDER NOTED AND CARRIED OUT.MED REC NOT COMPLETED,PT NOTIFIED TO BRING IN MED LIST FROM HOME.DR RICARDO HERE TO SEE PT,WANTS INTER DRY TO HER ABD FOLD RASH.PT REPOSITIONED WHILE IN BED.SMALL LOOSE BM NOTED SO FAR.L SIDED WEAKNESS NOTED.SUPRA PUBIC CATH IN PLACE WITH LEAKAGE.CREAM APPLIED TO HER ITCHING SKIN.OPEN AREA NOTED TO HER L THIGH.CONT ON IV ABX ORDERED.CALL LIGHT LIGHT WITHIN REACH.
[2021-04-17 07:15] VITALS: BP 133/85
--- NOTE | 2021-04-17 11:11 | NUR ---
ASSUMED PT CARE THIS AM. PT IS ALERT & ORIENTED X4. PT HAS IV SITE ON R HAND SALINE LOCKED. PT HAS SUPRAPUBIC CATH THAT WAS PLACED ON DEC. PT HAS L SIDE PARALYSIS. PT IS ACCUCHECK ACHS. INFORMED DR ABOUT PT COMPLAINS OF ITCHING ON HER VAGINA AND MULTIPLE LOOSE STOOL THIS AM AND APPLIES ZGUARD ON HER BUTTOCKS. INFORMED DR ABOUT LOW POTASSIUM. AWAITING FOR NEW ORDERS. CALLED [facility] TO SEND A RELEASE MEDICAL RECORD FORM PER DR REQUEST. FAX MULTIPLE TIMES BUT UNABLE TO SEND DUE TO "BUSY". CALLED [employer]ROR DEPARTMENT SUPERVISOR [facility] AND TRIED TO SEND ONE ON DIFFERENT FAX NUMBER BUT WAS NOT SUCCESSFUL WELL. WILL CONTINUE TO SEND AGAIN. PT ON THE BED WATCHING TV, BED ON THE LOWEST POSITION, SIDE RAILS UP, CALL LIGHT WITHIN REACH. WILL CONTINUE TO MONITOR PT. FOLLOW POC.
[2021-04-17 16:25] VITALS: BP 144/78
[2021-04-17 19:30] VITALS: BP 177/105
--- NOTE | 2021-04-18 03:12 | NUR ---
PT LYING IN BED. TURNING PER PT REQUEST. LORTAB PROVIDING PAIN RELIEF. RESTING COMFORTABLY. NO NEEDS VOICED. CALL LIGHT WITHIN REACH. FREQENT OBSERVATION.
[2021-04-18 05:12] LABS: HEMATOCRIT 33.8 % (37.0-47.0); MCH 26.8 pg (26.0-34.0); MCHC 32.6 g/dL (28.0-37.0); RBC 4.12 mil/uL (4.20-5.00); RDW 13.4 % (10.5-14.5); WBC 4.8 thou/uL (4.0-11.0)
[2021-04-18 05:33] LABS: CALCIUM 8.5 mg/dL (8.5-10.1); CREATININE 0.7 mg/dL (0.6-1.0); MAGNESIUM 1.6 mg/dL (1.8-2.4); POTASSIUM 3.7 mmol/L (3.5-5.1)
[2021-04-18 08:12] VITALS: BP 156/89
--- NOTE | 2021-04-18 10:33 | NUR ---
ASSUMED CARE OF PT AT 0700 THIS MORNING. PT IS BEDFAST DUE TO CVA AND OTHER HX. PT IS OBESE AND REQUIRES MAX ASSIST FOR MOVING AND TURNING. PT IS A/OX4, SKIN IS INTACT AND NO TENTING. PT IS C/O ITCHING IN RIGHT HAND, BUTTOCKS AND LEFT FOOT. APPLIED LOTION AND BARRIER CREAM TO THE LOCATIONS AND SEEMS TO HAVE HELPED. LUNGS ARE CLEAR WITH DIMINISHED IN LOWER LOBES. IV IN RIGHT HAND WITH SL. ASSESSMENTS OTHERWISE UNREMARKABLE. CALL LIGHT AND OTHER NEEDS ARE PLACED WITHIN REACH. MEDS AND TX GIVEN NEEDED AND SCHEDULED.
--- NOTE | 2021-04-18 11:42 | NUR ---
ASSESSMENT: CM REVIEWED CHART AND MET WITH PATIENT AT THE BEDSIDE. PT IS ALERT AND ORIENTED X4. PT WAS ADMITTED DUE TO UTI. PT IS FROM HOME WHERE SHE LIVES WITH HER DAUGHTER WHO IS HER PAID CAREGIVER FOR 4HRS/DAY 7DAYS/WEEK. PT IS IN SERVICE WITH [facility]. CM NOTIFIED THEM OF ADMISSION AND FAXED UPDATED CLINICAL. PT ALSO HAS CHRONIC INDWELLING CATHETER THAT THEY MONITOR. PT HAS PAST HX OF CVA AND LEFT SIDED HEMIPARESIS. PT HAS A HOSPITAL BED AT HOME, WHEELCHAIR, WELL ROBIN LIFT. FAMILY IS SUPPORTIVE. PT IS CURRENTLY ON IV ANBX AND CULTURES ARE PENDING. PLANS ARE FOR PATIENT TO RETURN HOME WITH [facility]. CM WILL CONTINUE TO FOLLOW TO ASSIST NEEDED.
[2021-04-18 15:23] VITALS: BP 156/89
[2021-04-18 18:13] VITALS: BP 156/73
--- NOTE | 2021-04-19 02:16 | NUR ---
UPON SHIFT ASSESSMENT, PT AOX4. PT REPORTS 8/10 PAIN IN LLE. PT RECEIVING SCHEDULED PO MORPHINE BID AND PRN PO NORCO Q4HR WITH PRN PO APAP Q4HR AVAILABLE. PT DENIES SOB WHILE ON ROOM AIR. PT TOLERATING PO INTAKE OF FLUIDS AND CARB CONTROLLED DIET WITHOUT ISSUE. PT WITH NAUSEA AND X3 EMESIS. PT GIVEN PARTIAL DOSE OF PRN IV ZOFRAN Q4HR. IV SITE NOT FUNCTIONING UPON FLUSHING, PT REPORTING PAIN, IV DISCONTINUED. PT REFUSING ADDITIONAL IV ATTEMPTS DUE TO FREQUENT PREVIOUS ATTEMPTS. ONCALL REGISTERED CLINICAL DIETITIAN NOTIFIED, EMAR UPDATED. PT INCONTINENT OF BOWEL, SUPRAPUBIC CATHETER REMAINS IN PLACE AND PATENT. PT RESTING IN BED THROUGHOUT SHIFT, FREQUENT REPOSITIONING ENCOURAGED. PT INTERMITTENTLY REFUSING REPOSITIONING ASSISTANCE. PT REPORTS TINGLING IN LEFT FOOT. CAPILLARY REFILL LESS THAN 3SEC, PERIPHERAL PULSES FAINT IN ALL EXTREMITIES. PT ENCOURAGED TO NOTIFY STAFF FOR ALL NEEDS, CALL LIGHT WITHIN REACH, BED ALARM ON, BED LOCKED IN LOWEST POSITION, FREQUENT MONITORING WILL CONTINUE.
[2021-04-19] MEDS ORDERED: MACROBID 100 M100 M1 PO (11:44)
[2021-04-19] MEDS ORDERED: DOXYCYCLINE HYC50 MG PO (11:44)
--- NOTE | 2021-04-19 12:24 | NUR ---
ASSUMED PT CARE THIS AM. PT IS ALERT & ORIENTED X4. PT HAS IV SITE ON R UA MIDLINE. PT HAS SUPRAPUBIC CATH. PT IS ON ROOM AIR. PT IS ACCHUCHECK ACHS. PT C/O OF NAUSEA AND GIVEN NAUSEA MEDICATION PER PT REQUEST. PT IS ON CONTACT PRECAUTION. PT ON THE BED, BED ON THE LOWEST POSITION, SIDE RAILS UP, CALL LIGHT WITHIN REACH. WILL CONTINUE TO MONITOR PT. FOLLOW POC.
--- NOTE | 2021-04-19 13:33 | NUR ---
ON-GOING ASSESSMENT: CM REVIEWED CHART AND SPOKE WITH ATTENDING WELL PATIENT. PT IS DISCHARGING HOME TODAY WITH HOME HEALTH ([facility]) WHO SHE WAS IN SERVICES PRIOR TO ADMISSION. CM FAXED DISCHARGE PAPERWORK TO [facility] AND CONFIRMED THEY RECEIVED INFO AND NOTIFIED LIAANDRE SIMS. PT WAS ABLE TO TRANSITION TO ORAL ANBX. PT IS NEEDING TRANSPORTATION HOME AND CM ARRANGED A STRETCHER VAN THROUGH [facility] [phone] AND SPOKE WITH ELY CONFIRMED TRIP#[id number]. CM NOTIFIED PATIENT AND HER BEDSIDE RN. PT REPORTS HER DAUGHTER IS AT HOME FOR WHEN SHE GETS THERE AND CM CONFIRMED HER ADDRESS. PT REPORTS NO FURTHER NEEDS FROM AT THIS TIME.
== END 2021-04-19 17:28 | disposition home health service (06) | DRG 872 ==
LOC: ER 23:37 → 4S 04-16 02:01 → EROBS 04-16 02:01 → 4S 04-16 02:31
PROVIDERS: Emergency Medicine; Nurse Practitioner Family; ADMIT Internal Medicine; ATTEND Internal Medicine
PROC: 05HB33Z Insertion of Infusion Device into Right Basilic Vein, Percutaneous Approach (ICD-10-PCS; principal; 2021-04-19)
PROC: B54MZZA Ultrasonography of Right Upper Extremity Veins, Guidance (ICD-10-PCS; principal; 2021-04-19)
DX: A41.51 Sepsis due to Escherichia coli [E. coli] (principal); N39.0 Urinary tract infection, site not specified; I69.354 Hemiplegia and hemiparesis following cerebral infarction affecting left non-dominant side; Z16.12 Extended spectrum beta lactamase (ESBL) resistance; Z68.43 Body mass index [BMI] 50.0-59.9, adult; E66.01 Morbid (severe) obesity due to excess calories; M17.0 Bilateral primary osteoarthritis of knee; E11.9 Type 2 diabetes mellitus without complications; F31.9 Bipolar disorder, unspecified; I10 Essential (primary) hypertension; E78.5 Hyperlipidemia, unspecified; G89.4 Chronic pain syndrome; K21.9 Gastro-esophageal reflux disease without esophagitis; F41.9 Anxiety disorder, unspecified; L30.4 Erythema intertrigo; N31.2 Flaccid neuropathic bladder, not elsewhere classified; B96.5 Pseudomonas (aeruginosa) (mallei) (pseudomallei) as the cause of diseases classified elsewhere; Z79.899 Other long term (current) drug therapy; Z79.4 Long term (current) use of insulin
CPT/HCPCS: 10195; 27000

== ENCOUNTER 2021-04-28 12:03 | Emergency (ER) | payer OTHER ==
[~2021-04-28] VITALS: Ht 162.6 cm; Wt 158.8 kg
[~2021-04-28 12:03] MED LIST changes: +DOXYCYCLINE HYC50 MG PO
[2021-04-28 14:33] LABS: ABSOLUTE NEUTROPHILS 2.5 thou/uL (1.4-8.2); BASOPHILS 0.8 % (0.0-2.0); EOSINOPHILS 6.8 % (0.0-3.0); HEMATOCRIT 37.4 % (37.0-47.0); HEMOGLOBIN 12.2 gm/dL (12.0-15.0); LYMPHOCYTES 35.5 % (24.0-44.0); MCH 26.6 pg (26.0-34.0); MCHC 32.7 g/dL (28.0-37.0); MCV 81.4 fL (80.0-100.0); MONOCYTES 8.9 % (1.0-8.0); PLATELET COUNT 223 thou/uL (150-400); RBC 4.59 mil/uL (4.20-5.00); RDW 13.4 % (10.5-14.5); WBC 5.3 thou/uL (4.0-11.0)
[2021-04-28 14:40] LABS: CREATININE 0.9 mg/dL (0.6-1.0); POTASSIUM 4.6 mmol/L (3.5-5.1)
[2021-04-28 14:47] LABS: TOTAL BILIRUBIN 0.3 mg/dL (0.2-1.0); TOTAL PROTEIN 7.3 g/dL (6.4-8.2)
[2021-04-28 16:38] LABS: URINE BILIRUBIN NEGATIVE (Negative); URINE BLOOD 3+ (Negative); URINE CLARITY CLEAR; URINE COLOR YELLOW; URINE GLUCOSE-RANDOM* TRACE (Negative); URINE KETONES TRACE (Negative); URINE LEUKOCYTES-REFLEX TRACE (Negative); URINE NITRITE-REFLEX NEGATIVE (Negative); URINE PROTEIN (DIPSTICK) TRACE (Negative); URINE SPECIFIC GRAVITY >= 1.030 (1.005-1.035); URINE UROBILINOGEN 0.2 E.U./dl (0.2-1.0)
[2021-04-28 17:06] LABS: CASTS None Seen /LPF (None Seen); SQUAMOUS None Seen /LPF (0-3)
[2021-04-28 17:07] LABS: BACTERIA-REFLEX 1-9 Few /HPF (None Seen); URINE RBC 1-2 Rare /HPF (NONE SEEN); URINE WBC-REFLEX 0-5 Rare /HPF (0-5)
[2021-04-28 17:08] LABS: CRYSTALS None Seen /LPF (None Seen); YEAST-REFLEX Present (None Seen)
[2021-04-28] MEDS ORDERED: DIFLUCAN200 MG PO (17:46)
[2021-04-28 19:33] VITALS: BP 141/90
== END 2021-04-28 21:30 | disposition home or self-care (01) ==
LOC: ER 12:03
PROVIDERS: Physician Assistant
DX: B37.41 Candidal cystitis and urethritis (principal); N76.0 Acute vaginitis; E11.9 Type 2 diabetes mellitus without complications; I10 Essential (primary) hypertension; Z79.899 Other long term (current) drug therapy; Z86.73 Personal history of transient ischemic attack (TIA), and cerebral infarction without residual deficits

== ENCOUNTER 2021-05-12 12:06 | Inpatient (IN) | payer OTHER ==
[~2021-05-12] VITALS: Ht 162.6 cm; Wt 149.7 kg
--- NOTE | ~2021-05-12 | EMS ---
[address] [address] EMS Patient Care Report Name: KAILA CORONA Room #: REG PITER Reid#: [id number] Admission: 05/12/21 Attend Phys: Discharge: Date of : 63 Report #: [id number] THIS REPORT FOR: //name// Report Transmitted: 05/12/2021 11:[address] [facility] Incident [id number] @ 05/12/2021 11:26 Incident [address] [place] [address] Patient KAILA CORONA Female, 55 Years 1965 Patient Address [address] [place] [address] Patient History Other,Diabetes,Hypertension (HTN),Stroke/CVA,Gastro-Esophageal Reflux Disease (GERD),Morbid Obesity,Bipolar II Disorder,Chronic Pain, Patient Allergies No known allergies, Patient Medications Victoza, Insulin, Bacitracin, Chief Complaint Painful Urination Disposition Transported No Lights/[place] Dispatch Reason Hemorrhage/Laceration Transported To [facility] Narrative Squad 52 was dispatched to a residence for sick person. Squad 52 arrived on scene to find a 55 year old female supine in her bed [address] [address] EMS Patient Care Report Name: KAILA CORONA Room #: REG Jeanette#: [id number] Admission: 05/12/21 Attend Phys: Discharge: Date of : 63 Report #: [id number] reporting she has painful urination for the past week. The patient reports history of frequent UTI with a current UTI for which she is taking antibiotics and reports the painful urination has not subsided or decreased at all. The patient reports dark urine and is requesting transport to [facility] for evaluation and treatment. [place] [address]'s initial exam found the patient to have a GCS of 15, normal presentation with stable vital signs that are within normal limits. The patient has a urinary catheter that has dark colored urine in the collection bag. Palpation of the lower abdomen and upper pelvic area is painful to the patient. The patient reports no additional complaints and was loaded into the ambulance with non emergent transport to [facility] initiated. [place] [address]'s secondary exam during transport found the patient to have no change in condition. Vital signs remained stable and the patient rested in a position of comfort on the stretcher during transport. Upon arrival to the ER the patient was placed in room, transferred to ER bed with report given to RN in room transferring care to ER staff. Initial Vitals @11:49P: 78,R: 15,BP: 116/72,Pain: 2/10,GCS: 15,SpO2: 97,Revised Trauma: 12, Assessments @11:50MENTAL:No Abnormalities,SKIN:No Abnormalities,HEENT:Head/Face: No Abnormalities,Eyes: No Abnormalities,Neck/Airway: No Abnormalities,LUNG SOUNDS:General: No Abnormalities,Left Upper: No Abnormalities,Right Upper: No Abnormalities,Left Lower: No Abnormalities,Right Lower: No Abnormalities,ABDOMEN:General: No Abnormalities,Left Upper: No Abnormalities,Right Upper: No Abnormalities,Left Lower: No Abnormalities,Right Lower: No Abnormalities,PELVIS//GI:Pelvis GUOther,EXTREMITIES:Left Arm: No Abnormalities,Right Arm: No Abnormalities,Left Leg: No Abnormalities,Right Leg: No Abnormalities,PULSE:NEURO:No Abnormalities,@12:00MENTAL:No Abnormalities,SKIN:No Abnormalities,HEENT:LUNG SOUNDS:General: No Abnormalities,Left Upper: No Abnormalities,Right Upper: No Abnormalities,Left Lower: No Abnormalities,Right Lower: No Abnormalities,ABDOMEN:General: No Abnormalities,Left Upper: No Abnormalities,Right Upper: No Abnormalities,Left Lower: No Abnormalities,Right Lower: No Abnormalities,PELVIS//GI:Pelvis GUOther,EXTREMITIES:Left Arm: No Abnormalities,Right Arm: No Abnormalities,Left Leg: No Abnormalities,Right Leg: No Abnormalities,PULSE:NEURO:No Abnormalities, Impression Urinary Tract Infection (UTI) Procedures @11:50ALS AssessmentResponse: [place] [address] EMS Patient Care Report Name: KAILA CORONA [place] Room #: REG PITER Reid#: [id number] Admission: 05/12/21 Attend Phys: Discharge: Date of : 63 Report #: [id number] Timeline 11:25,Call Received 11:25,Psap Call 11:26,Dispatched 11:28,En Route 11:30,Initial Responder On Scene 11:35,On Scene 11:36,At Patient 11:47,Depart Scene 11:49,BP: 116/72 M,PULSE: 78,RR: 15 R,SPO2: 97 Ox,ETCO2: ,BG: ,PAIN: 2,GCS: 15, 11:50,ALS Assessment,Response: UnchangedSucceeded, 12:03,At Destination 12:04,Transfer Patient 12:32,Call Closed Disclaimer v1.1 Copyright 2020 [employer] This EMS Care Summary contains data elements from the applicable legal record (which may be displayed differently). It is designed to provide pertinent information for the following purposes: continuity of care, clinical quality, and state data reporting. The complete legal record is available to ED staff and administrators of the receiving hospital in [employer] Patient Tracker. All data is provided "as is."
[2021-05-12 12:10] VITALS: BP 138/87
[2021-05-12 14:10] LABS: URINE BILIRUBIN NEGATIVE (Negative); URINE BLOOD 3+ (Negative); URINE CLARITY CLOUDY; URINE COLOR YELLOW; URINE GLUCOSE-RANDOM* NEGATIVE (Negative); URINE KETONES NEGATIVE (Negative); URINE NITRITE-REFLEX NEGATIVE (Negative); URINE PROTEIN (DIPSTICK) 2+ (Negative); URINE SPECIFIC GRAVITY >= 1.030 (1.005-1.035)
[2021-05-12 14:15] LABS: ABSOLUTE NEUTROPHILS 3.4 thou/uL (1.4-8.2); BASOPHILS 0.9 % (0.0-2.0); EOSINOPHILS 4.7 % (0.0-3.0); HEMATOCRIT 37.7 % (37.0-47.0); HEMOGLOBIN 12.3 gm/dL (12.0-15.0); LYMPHOCYTES 32.8 % (24.0-44.0); MCH 26.8 pg (26.0-34.0); MCHC 32.8 g/dL (28.0-37.0); MCV 81.7 fL (80.0-100.0); MONOCYTES 7.6 % (1.0-8.0); PLATELET COUNT 217 thou/uL (150-400); RBC 4.61 mil/uL (4.20-5.00); RDW 13.5 % (10.5-14.5); WBC 6.3 thou/uL (4.0-11.0)
[2021-05-12 14:19] LABS: CALCIUM 8.8 mg/dL (8.5-10.1); CREATININE 0.9 mg/dL (0.6-1.0); POTASSIUM 3.6 mmol/L (3.5-5.1)
[2021-05-12 14:25] LABS: ALBUMIN 3.2 g/dL (3.4-5.0); TOTAL BILIRUBIN 0.3 mg/dL (0.2-1.0); TOTAL PROTEIN 7.3 g/dL (6.4-8.2)
[2021-05-12 14:30] LABS: URINE LEUKOCYTES-REFLEX 1+ (Negative)
[2021-05-12 14:31] LABS: SQUAMOUS 4-10 Moderate /LPF (0-3)
[2021-05-12 14:32] LABS: BACTERIA-REFLEX >30 Many /HPF (None Seen); CASTS None Seen /LPF (None Seen); CRYSTALS None Seen /LPF (None Seen); URINE RBC >20 Many /HPF (NONE SEEN)
[2021-05-12 17:37] VITALS: BP 135/79
[2021-05-12 17:58] LABS: ALBUMIN 3.3 g/dL (3.4-5.0); TOTAL PROTEIN 6.9 g/dL (6.4-8.2)
--- NOTE | 2021-05-12 18:15 | NUR ---
TRIED CALLING REPORT. NO ANSWER.
[2021-05-12 18:18] VITALS: BP 148/71
[2021-05-12 19:04] VITALS: BP 158/91
--- NOTE | 2021-05-12 19:45 | NUR ---
ADMITTED TO THE UNIT AT APPROXIMATELY 1830. PT IS A/O X4 AND IS ON BEDREST. ADMISSION IS COMPLETED. PT IS ON ROOM AIR. VSS. AFEBRILE. SUPRAPUBIC CATHETER IN PLACE DRAINING APPROPRIATELY. PT C/O OF CHRONIC PAIN TO LEFT ARM AND LEG. LBM WAS EARLIER IN THE DAY. PT HAS BEEN EDUCATED ON USE OF CALL LIGHT AND BED CONTROLS. FALL PRECAUTIONS IN PLACE, CALL LIGHT IS WITHIN REACH. IN ROOM NEAR NURSES STATION. WILL CONTINUE TO MONITOR.
[2021-05-13 05:07] LABS: HEMATOCRIT 34.5 % (37.0-47.0); HEMOGLOBIN 11.3 gm/dL (12.0-15.0); MCH 26.9 pg (26.0-34.0); MCHC 32.7 g/dL (28.0-37.0); MCV 82.3 fL (80.0-100.0); RBC 4.2 mil/uL (4.20-5.00); RDW 13.5 % (10.5-14.5); WBC 6.1 thou/uL (4.0-11.0)
[2021-05-13 06:00] LABS: CALCIUM 8.5 mg/dL (8.5-10.1); CREATININE 0.8 mg/dL (0.6-1.0); MAGNESIUM 1.6 mg/dL (1.8-2.4); POTASSIUM 3.5 mmol/L (3.5-5.1)
[2021-05-13 07:55] VITALS: BP 115/70
[2021-05-13 13:29] VITALS: BP 115/70
--- NOTE | 2021-05-13 13:41 | NUR ---
ASSESSMENT: CM REVIEWED CHART AND MET WITH PATIENT AT THE BEDSIDE. PT IS DROWSY AND DOES NOT WANT TO ANSWER QUESTIONS AT THIS TIME. BEDSIDE RN WITH PATIENT WELL. PT IS FROM HOME WHERE SHE LIVES WITH HER DAUGHTER AUTUMN [phone] WHO IS HER PAID CAREGIVER FOR 4HRS/DAY 7DAYS/WEEK. PT IS IN SERVICE WITH [facility]. CM NOTIFIED THEM OF ADMISSION AND FAXED UPDATED CLINICAL. PT ALSO HAS CHRONIC INDWELLING CATHETER THAT THEY MONITOR. PT HAS PAST HX OF CVA AND LEFT SIDED HEMIPARESIS. PT HAS A HOSPITAL BED AT HOME, WHEELCHAIR, WELL [employer]. FAMILY IS SUPPORTIVE. PT IS CURRENTLY ON IV ANBX AND CULTURES ARE PENDING. PLANS ARE FOR PATIENT TO RETURN HOME WITH [facility]. IF PATIENT IS STABLE TO DISCHARGE OVER THE WEEKEND SHE WILL NEED TRANSPORTATION HOME ARRANGED THROUGH [facility] (THROUGH HER MEDICAID). CONTACT [facility] AT [phone] AND PROVIDE THEM WITH PATIENTS MEDICAID#[id number] TO ARRANGE STRETCHER TRANSPORT TO HOME ADDRESS: [facility] [address] [place] [id number]. CONTACT PATIENTS DAUGHTER AUTUMN WITH ANY UPDATES AT [phone]. [facility] WILL NEED TO BE NOTIFIED AT TIME OF DISCHARGE AT [phone] AND DISCHARGE PAPERWORK FAXED TO THEM AT [phone].
[2021-05-13 15:35] VITALS: BP 144/87
[2021-05-13] MEDS ORDERED: DULOXETINE HCL60 MG PO (16:34)
[2021-05-13] MEDS ORDERED: VITAMIN D21250 MCG PO (16:35)
[2021-05-13] MEDS ORDERED: WIXELA 250-501 EACH INH (16:35)
--- NOTE | 2021-05-13 20:08 | NUR ---
ASSUMED PT CARE AROUND 0715. PT ALERT X ORIENTED X 4. ON ROOM AIR.VSS. LBM TODAY MORNING. IV RT AC/SL.PT IS NON AMBULATING, HEMIPARESIS. HAS SUPRAPUBIC CATHETER IN. TAKE MEDS WHOLE WITH WATER. FALL PRECAUTION IN PLACE, CALL LIGHT IN REACH. HOURLY ROUNDINGS DONE. ON CLEAR LIQUID DIET. NPO AFTER TODAY MIDNIGHT. SHIFT REPORT GIVEN TO [place] SET UP OPERATOR.
[2021-05-13 20:10] VITALS: BP 119/72
--- NOTE | 2021-05-14 00:52 | NUR ---
ASUMED PT CARE AT 1915. PT WAS ALERT AND OREINTED X4. INTRODUCED SELF TO PT. PT DID NOT VOICE ANY CONNCERNS AND NO VISIBLE SIGNS OF DISTRESS WAS NOTED. PT REFUSED FECAL MANAGEMENT SYSTEM EVEN AFTER BEING EDUCATED ON THE ITS PURPOSE. PER PT" IT MAKES ME UNCOMFORTABLE AND DEPRESSED". BED ON LOWEST LOCKED POSITION WITH BED ALARM ON AND CALL LIGHT WITHIN REACH.
[2021-05-14 03:40] VITALS: BP 145/85
[2021-05-14 04:41] LABS: HEMATOCRIT 36.2 % (37.0-47.0); HEMOGLOBIN 11.9 gm/dL (12.0-15.0); MCH 26.9 pg (26.0-34.0); MCHC 32.8 g/dL (28.0-37.0); MCV 82.2 fL (80.0-100.0); RBC 4.41 mil/uL (4.20-5.00); RDW 13.7 % (10.5-14.5); WBC 5.3 thou/uL (4.0-11.0)
[2021-05-14 04:58] LABS: CALCIUM 8.7 mg/dL (8.5-10.1); CREATININE 0.6 mg/dL (0.6-1.0); MAGNESIUM 1.9 mg/dL (1.8-2.4); POTASSIUM 3.4 mmol/L (3.5-5.1)
[2021-05-14 08:15] VITALS: BP 113/80
--- NOTE | 2021-05-14 14:26 | NUR ---
ASSUMED CARE OF PT AT 0700 THIS MORNING. PT WAS ADMITTED FOR UTI AND BOWEL DISTENTION. PT IS A/OX4 AND NPO DUE TO COLONOSCOPY LATER TODAY. PT ABD IS OBESE AND SOFT. PT WILL BE GETTING A RECTAL TUBE IN PLACE LATER THIS AFTERNOON WELL. ASSESSMENT CHARTED AND OTHERWISE UNREMARKABLE. PT ALSO C/O LEFT FOOT AND LOWER LEG HAVING PAIN. PT HAS WEAKNESS ON LEFT SIDE DUE TO CVA. IV IN RIGHT AC SL. CALL LIGHT AND OTHER NEEDS ARE WITHIN PT'S REACH. MEDS AND TX GIVEN NEEDED AND SCHEDULED.
--- NOTE | 2021-05-14 16:25 | HC ---
[facility] [place] [address] CONSULTATION Name: KAILA CORONA [place] Room #: 445-P ADM IN M.R.#: [id number] Admission: 05/12/21 Attend Phys: Jorge Corey MD Discharge: Date of : 63 Report #: [id number] THIS REPORT FOR: cc: Angel Garces,Juan Carlos Heredia MD ~ DOC #: [id number] Juan Carlos Gaitan MD DATE OF SERVICE: 05/13/2021 INFECTIOUS DISEASE CONSULTATION REASON FOR CONSULTATION: To evaluate concerning recurrent urinary tract infection. HISTORY OF PRESENT ILLNESS: The patient is a 55-year-old known from her previous hospitalizations where she has had recurrent urinary tract infection. She is morbidly obese. She has a suprapubic catheter in place. She has a large abdominal pannus. She has had issues with recurring intertrigo. She was hospitalized last month with pseudomonas and ESBL producing E. coli identified from the urine. Treated with doxycycline and Macrobid. She has had monthly exchanges of a suprapubic catheter. Over the last week, she has had increased abdominal distention and diarrhea. Hospitalized for such. CT scan shows evidence of gaseous distention of her distal colon, most consistent with ____ syndrome. The patient was a poor historian. She has had a previous stroke with left hemiparesis. She has had no report of nausea or vomiting. No fever, chills or sweats. REVIEW OF SYSTEMS: A 14-point review of system was negative other than what has been described above. PAST MEDICAL HISTORY: Stroke with left hemiparesis, anxiety, depression, hypertension, obesity, neurogenic bladder with recurrent urinary tract infection, suprapubic catheter, bipolar disorder. ALLERGIES: None known. MEDICATIONS: As noted on her MAR, now on ceftriaxone. FAMILY HISTORY: Colon cancer. SOCIAL HISTORY: Nonsmoker, no significant alcohol intake. PHYSICAL EXAMINATION: GENERAL: She was fairly lethargic this afternoon. Nursing notes that she was eating and drinking earlier this afternoon with no issues. [facility] [address] [place] [address] CONSULTATION Name: KAILA CORONA [place] Room #: 445-P [facility] IN M.R.#: [id number] Admission: 05/12/21 Attend Phys: Jorge Corey MD Discharge: Date of : 63 Report #: [id number] SKIN: Without rash or decubitus, although she does have intertrigo in her abdominal pannus fold. HEENT: Eyes without scleral icterus. Mouth without mucositis. NECK: Supple. She is morbidly obese. LUNGS: Decreased breath sounds bilaterally. HEART: Regular, without murmur, gallop or rub. ABDOMEN: Soft and nontender with no hepatosplenomegaly or mass appreciated. EXTREMITIES: With 1+ edema. No clubbing or cyanosis. Mood was sedate. She had left-sided hemiparesis. LABORATORY DATA: Hemoglobin 11, WBC 6. Creatinine 0.8. Urinalysis with pyuria, bacteriuria, hematuria. This is from her indwelling suprapubic catheter. Blood cultures are negative. Urine culture, E. coli, sensitivities pending. CT scan of the abdomen and pelvis, widespread colonic distention consistent with pseudoobstruction, mild distal rectal mural thickening, prior cholecystectomy, appendectomy, hysterectomy, and a suprapubic urinary catheter in place. IMPRESSION: 1. Colonic pseudoobstruction. I suspect as a cause of her acute decompensation with her abdominal discomfort. 2. Recurring cystitis with ongoing indwelling suprapubic catheter in the setting of obesity and a large abdominal pannus that keeps this area moist and with increased bacterial colonization. 3. Stroke with left hemiparesis. 4. Diabetes. 5. Anxiety and depression. RECOMMENDATION: We will continue antibiotic coverage pending culture results. Continue with antifungal agents for her intertrigo. GI service is going to assist with bowel decompression. Juan Carlos Gaitan MD DJG/KDA <ELECTRONICALLY SIGNED> By: Juan Carlos Gaitan MD 05/14/21 1625 1629 0026 Juan Carlos Gaitan MD /nt
[2021-05-14 16:32] VITALS: BP 121/73
[2021-05-14 20:12] VITALS: BP 152/87
[2021-05-15 05:23] LABS: HEMATOCRIT 35.4 % (37.0-47.0); HEMOGLOBIN 11.5 gm/dL (12.0-15.0); MCH 26.8 pg (26.0-34.0); MCHC 32.5 g/dL (28.0-37.0); MCV 82.3 fL (80.0-100.0); RBC 4.3 mil/uL (4.20-5.00); RDW 13.6 % (10.5-14.5); WBC 4.8 thou/uL (4.0-11.0)
[2021-05-15 05:33] LABS: ALBUMIN 2.8 g/dL (3.4-5.0); ANION GAP 9 mmol/L (7-16); BUN 7 mg/dL (7-18); CALCIUM 8.6 mg/dL (8.5-10.1); CHLORIDE 107 mmol/L (98-107); CO2 25 mmol/L (21-32); CREATININE 0.6 mg/dL (0.6-1.0); DIRECT BILIRUBIN < 0.1 mg/dL (<0.1-0.2); GLUCOSE 130 mg/dL (74-106); MAGNESIUM 1.8 mg/dL (1.8-2.4); PHOSPHORUS 2.5 mg/dL (2.5-4.9); POTASSIUM 3.4 mmol/L (3.5-5.1); SGOT 10 U/L (15-37); SGPT 14 U/L (30-65); SODIUM 141 mmol/L (136-145); TOTAL BILIRUBIN 0.3 mg/dL (0.2-1.0); TOTAL PROTEIN 6.6 g/dL (6.4-8.2)
--- NOTE | 2021-05-15 05:37 | NUR ---
PT LYING IN BED. TYLENOL PROVIDING PAIN RELIEF. RESTING COMFORTABLY. REQUESTING THAT FECAL MGMT BE REMOVED. CALL LIGHT WITHIN REACH. FREQUENT OBSERVATION.
[2021-05-15 05:41] LABS: CHOLESTEROL 128 mg/dL (<200); HDL CHOLESTEROL 30 mg/dL (>40); LDL CHOLESTEROL 80 mg/dL (<100); TC:HDL 4.3 Ratio (Not establshd); TRIGLYCERIDE 93 mg/dL (<150); VLDL 19 mg/dL (<40)
[2021-05-15 05:44] LABS: SERUM ASSESSMENT Clear
--- NOTE | 2021-05-15 08:12 | EKG ---
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
[2021-05-15 08:47] VITALS: BP 119/72
[2021-05-15 16:09] VITALS: BP 174/85
--- NOTE | 2021-05-15 17:07 | NUR ---
ONGOING ASSESSMENT FROM YESTERDAY WITH NO CHANGE. RE-ASSUMED CARE AT 0700 THIS MORNING. PT HAD A SECOND KUB TODAY AND WILL BE READ TOMORROW. ONGOING ASSESSMENT NOTED IN THE CHART AND OTHERWISE UNREMARKABLE. CALL LIGHT AND OTHER NEEDS WITHIN REACH. PT SAT ON THE EDGE OF THE BED FOR APPROX 30 MIN THIS AFTERNOON. MEDS AND TX GIVEN NEEDED AND SCHEDULED. WILL CONTINUE TO MONITOR PT.
[2021-05-15 20:15] VITALS: BP 181/106
[2021-05-16 04:05] LABS: GLYCOHEMOGLOBIN (HGB A1C) 9.2 % (4.8-5.6)
--- NOTE | 2021-05-16 05:30 | NUR ---
PT LYING IN BED. TYLENOL PROVIDING PAIN RELIEF. EUCERIN CREAM AND BENADRYL OBTAINED FOR ITCHY LEGS. RESTING COMFORTABLY. NO NEEDS VOICED. CALL LIGHT WITHIN REACH. FREQUENT OBSERVATION.
[2021-05-16 05:31] LABS: HEMATOCRIT 36.3 % (37.0-47.0); MCH 27.1 pg (26.0-34.0); MCHC 33.1 g/dL (28.0-37.0); MCV 81.9 fL (80.0-100.0); RBC 4.44 mil/uL (4.20-5.00); RDW 13.4 % (10.5-14.5); WBC 5.2 thou/uL (4.0-11.0)
[2021-05-16 05:44] LABS: CALCIUM 8.5 mg/dL (8.5-10.1); CREATININE 0.5 mg/dL (0.6-1.0); MAGNESIUM 1.7 mg/dL (1.8-2.4); POTASSIUM 3.8 mmol/L (3.5-5.1)
[2021-05-16 09:11] VITALS: BP 156/85
--- NOTE | 2021-05-16 13:45 | NUR ---
Pt seen for excessive BMI 56.6. Admissted with recurrent UTI. Dx DM, L sided hemiparesis, HTN, HTN, morbid obesity. On SSI, IVF, ABX, lasix. Pt reports UBW 330#, same as current. On clear liquid diet x 3 days. Pt reports hunger, lethargy. Noted with poorly controlled DM and A1c 9.2. Pt requests printed DM diet education and stated she has had little diet education inthe past and tries to "stay away from carbs." Upon specifying, she stated she has stopped eating white rice and reduced her portions of white potatoes and sugary foods. RD to give printed DM education and will be available for further education as needed. Low nutrition risk.
[2021-05-16 18:14] VITALS: BP 141/87
--- NOTE | 2021-05-16 18:30 | NUR ---
PT ASSESSED AT START OF SHIFT. PT HAVING INCONTINENT LIQUID BROWN STOOLS. TAKING CLEAR LIQUIDS ONLY. DR. HURLEY IN AND RECOMMENDED REPLACING RECTAL TUBE WHILE STOOL LIQUID. TUBE REPLACED AT THIS TIME. TURNED W/ 3 PEOPLE. GOOD URINE OUTPUT. IV FLUIDS DC'D.
[2021-05-16 20:05] VITALS: BP 144/99
--- NOTE | 2021-05-17 02:47 | NUR ---
Assumed pt care at 1900. A/OX4,VSS.Pt c/o pain to left leg,immobilized and pain meds given with relief reported. Pt has a suprapubic catheter in place,patent with light yellow urine as well as a fecal management tube;no out put noted yet. Reposotined as tolorable side to side;has left side hemiparesis. IV infiltrated on RFA,new IV inserted by house sup on left chest with one attempt. Resting quietly at this time,will continue to monitor pt.
[2021-05-17 07:48] VITALS: BP 127/98
--- NOTE | 2021-05-17 14:16 | NUR ---
ASSUMED PT CARE THIS AM. PT A&OX4, ABLE TO MAKE NEEDS KNOWN. PATIENT ABLE TO MOVE THE RIGHT SIDE OF HER BODY. PATIENT HAS A RECTAL TUBE AND A SUPRAPUBIC CATHETER IN PLACE. IV PATENT, MEDICATIONS INFUSING WITHOUT ISSUE. PATIENT COMPLAINS OF PAIN IN THE LEFT LOWER EXTREMETY, DENIED PAIN MEDICATION THIS AM, BUT TYLENOL GIVEN WHEN OFFERED AGAIN. PATIENT SLEEPING UPON PAIN REASSESSMENT. PATIENT IS ON ROOM AIR. FALL PRECAUTIONS IN PLACE, CALL LIGHT IN REACH.
--- NOTE | 2021-05-17 14:25 | NUR ---
ON-GOING ASSESSMENT: CM REVIEWED CHART AND SPOKE WITH ATTENDING. PT REMAINS ON IV ANBX AND CURRENTLY HAS RECTAL TUBE. GI IS FOLLOWING AND PATIENT IS TO HAVE KUB XRAY TODAY. CM WILL CONTINUE TO FOLLOW TO ASSIST NEEDED. [facility] IS FOLLOWING.
[2021-05-17 15:48] VITALS: BP 142/80
[2021-05-17 20:22] VITALS: BP 123/75
--- NOTE | 2021-05-18 02:43 | NUR ---
ASSUMED CARE AT 1900. PT IS PLEASANT AND COOPERATIVE. APPEARS TEARFUL AND STATES SHE FEELS LIKE SHE CAN'T STOP CRYING. NURSE TRIED COMFORTING PT AND TALKING WITH HER A WHILE. VSS AFEBRILE. MEDICATIONS GIVEN PER MAR. C/O LLE PAIN. PRN PAIN MEDICATION GIVEN DIRECTED. FRANCO IN PLACE DRAINING LIGHT YELLOW URINE. NO BM THIS SHIFT. ELEVATED LLE AND LEFT ARM ON PILLOWS AT PT REQUEST. MEDICATIONS GIVEN DIRECTED. FALL PRECAUTIONS IN PLACE, CALL LIGHT IS WITHIN REACH. WILL CONTINUE TO MONITOR.
[2021-05-18 08:18] VITALS: BP 119/90
--- NOTE | 2021-05-18 10:49 | NUR ---
ASSUMED PT CARE THIS AM. PT A&OX4, ABLE TO MAKE NEEDS KNOWN. IV PATENT, SALINE LOCKED. PATIENT HAS LEFT SIDED HEMIPARESIS. REPORTS PAIN IN THE LEFT LOWER EXTREMITY AND PAIN MEDICATION OFFERED, BUT PATIENT DENIED. PHYSICIAN NOTIFIED OF PATIENT'S PAIN AND THAT PATIENT DENIED PAIN MEDS THAT WERE OFFERED. PATIENT IS ON ROOM AIR. PATIENT TOOK ALL MORNING MEDICATIONS WITHOUT ISSUE. FALL PRECAUTIONS ARE IN PLACE, CALL LIGHT WITHIN REACH. REPOSITIONING PATIENT Q2H AND REQUESTED.
--- NOTE | 2021-05-18 12:58 | NUR ---
ORDERS RECEIVED AGAIN FOR EVAL AND TREAT. Pt WAS EVALUATED ON 05/13/21 AND DEEMED NOT APPROPRIATE FOR THERAPY IN THE ACUTE SETTING SHE IS DEPENDENT WITH MOBILITY AND USES [employer] AT HOME. WILL DEFER ANOTHER RE-EVALUATION AT THIS TIME.
--- NOTE | 2021-05-18 14:55 | NUR ---
ON-GOING ASSESSMENT: CM REVIEWED CHART. PT HAD RECTAL TUBE REMOVED AND GI IS CONTINUING TO FOLLOW PATIENT, PLANS FOR KUB. PT REMAINS ON IV ANBX AND NOT READY FOR DISCHARGE AT THIS TIME. CM WILL CONTINUE TO FOLLOW TO ASSIST NEEDED.
[2021-05-18 15:44] VITALS: BP 135/81
[2021-05-18 19:35] VITALS: BP 116/73
--- NOTE | 2021-05-19 03:06 | NUR ---
ASSUMED PT CARE AT 1935. PT WAS WATCHING TV IN BED. PT WAS ALERT AND ORIENTED X4. INTRODUCED SELF TO PT. PT WAS PLEASANT. PT DID NOT EXPRESS ANY CONCERNS AND NO VISIBLE SIGN OF DISTRESS WAS NOTED. WHITE BOARD WAS UPDATED. BED ON LOWEST LOCKED POSITION WITH BE ALRAM ON AND CALL LIGHT WITHIN REACH.
[2021-05-19 08:10] VITALS: BP 110/72
[2021-05-19 15:56] VITALS: BP 110/68
--- NOTE | 2021-05-19 16:12 | NUR ---
on-going assessment: CM REVIEWED CHART. PT REMAINS ON IV ANBX AT THIS TIME AND PLANS ARE TO LIKELY BE ABLE TO TRANSITION TO [facility] AT DISCHARGE. PT HAD KUB AND GI STILL FOLLOWING. CM WILL CONTINUE TO FOLLOW AND KEEP [facility] UPDATED.
--- NOTE | 2021-05-19 17:43 | NUR ---
Received awake on bed. Due medication given as prescribed, able to swallow meds w/o difficulty. On room air. On MS, not on telemetry; no complains and signs of chest pain, crushing sensation and heaviness. Assisted in ADLs. On regular diet- tolerating well; no nausea, no vomiting and no abdominal pain noted. On blood sugar monitoring, taken and recorded accordingly. With suprapubic catheter in place- draining well; output measured and recorded accordingly. With SL at L breast- on IV antibiotics. Pt turned on her sides; may refuse at times. Falls bundle in place. Incontinent of bowels; checked frequently and changed as needed; able to have several bowel movements today- charted. Complained of pain, PRN pain meds given as prescribed. With order for KUB xray, pt able to have a bowel movement- as per ERIN Cordova to verify with Dr Corey if still needed; as per Dr Corey pt to still have xray- coordinated with xray staff, pt brought down via bed; back to room safely. Zguard applied to pt every incontinent episodes; on low airloss mattress. To continue monitoring patient.
[2021-05-19 20:56] VITALS: BP 119/58
[2021-05-19 21:31] VITALS: BP 141/75
[2021-05-20 03:34] VITALS: BP 96/58
--- NOTE | 2021-05-20 04:52 | NUR ---
PT IS A/O X4. ROOM AIR. VSS. AFEBRILE. MEDICATION GIVEN PER JAN. PT APPEARS DEPRESSED. SUPRAPUBIC CATHETER IN PLACE AND DRAINING YELLOW URINE. PT IS INCONTINENT OF STOOL AND HAS HAD X2 BROWN LIQUID STOOLS. Z GUARD APPLIED TO BOTTOM. FALL PRECAUTIONS IN PLACE, CALL LIGHT IS WITHIN REACH.
--- NOTE | 2021-05-20 11:48 | NUR ---
ASSUMED PT CARE AROUND 0730. PT ALERT X ORIENTED X 4. ON ROOM AIR. IV LEFT CHEST/ SL. ON REGULAR DIET. SLEEPY AND LOOKS DROWSY, LET DR. ALMANZA KNOW ABOUT PT'S DROWSYNESS. LBM TODAY MORNING. SUPRAPUBIC CATHETER IN PLACE. REFUSED MIRALAX POWDER SAYING "I HAD LOTS OF BM". PT'S DAUGHTER CALLED TO CHECK IF THE PT IS GETTING DISCHARGED TO FACILITY AND WANTED TO TALK TO CM. RN MESSAGED CM TO CALL THE PT;S DAUGHTER.ACCUCHECK AND ACHS. PT WENT FOR X RAY ABDOMEN SROUND 1130. FALL PRECAUTION IN PLACE. WILL CONTINUE TO MONITOR. APPLYING Z GUARD AT THE BOTTOM.
--- NOTE | 2021-05-20 15:03 | NUR ---
ON-GOING ASSESSMENT: CM REVIEWED CHART AND SPOKE WITH PATIENT AND ATTENDING. PT HAD REPEAT KUB TODAY. CM RECEIVED A CALL FROM PATIENTS DAUGHTER/CAREGIVER AUTUMN DEL CID AND CM DISCUSSED POSSIBLE DISCHARGE. AUTUMN STATING THAT SHE IS HER MOTHERS PRIMARY CAREGIVER BUT SHE IS ACTUALLY OUT OF TOWN UNTIL SUNDAY EVENING AND REQUESTING PATIENT NOT DISCHARGE UNTIL THEN. DAUGHTER AUTUMN REPORTS SHE WILL BE HOME SUNDAY AFTERNOON/EARLY EVENING AND REQUEST PT DISCHARGE SUNDAY AROUND 1700. PT WILL NEED TRASNPORTATION HOME AND HAS MEDICAID SO IT WILL HAVE TO BE ARRANGED THROUGH [facility] [place] [phone] AND REQUEST STRETCHER TRANSPORTATION. YOU WILL NEED PATIENTS MEDICAID NUMBER [id number] AND WEIGHT 330LBS AND REQUEST TRANSPORT TIME OF 1700. CONFIRM WITH AUTUMN THAT SHE IS HOME AND SHE CAN BE REACHED AT [phone]. [facility] WILL RESUME HOME HEALTH AT DISCHARGE. ONCE ORDERS ARE IN FAX THEM TO [facility] FAX [phone] AND NOTIFY THEM AT [phone]. CM SPOKE WITH [facility] ON SUNDAY TO UPDATE PT WILL LIKELY DISCHARGE SUNDAY.
[2021-05-20 15:15] LABS: HEMATOCRIT 36.6 % (37.0-47.0); MCH 26.8 pg (26.0-34.0); MCHC 32.7 g/dL (28.0-37.0); MCV 82.1 fL (80.0-100.0); RBC 4.46 mil/uL (4.20-5.00); RDW 13.8 % (10.5-14.5); WBC 4.7 thou/uL (4.0-11.0)
[2021-05-20 15:28] LABS: CALCIUM 8.5 mg/dL (8.5-10.1); CREATININE 0.8 mg/dL (0.6-1.0); MAGNESIUM 1.5 mg/dL (1.8-2.4)
[2021-05-20 17:00] VITALS: BP 122/73
[2021-05-20 20:51] VITALS: BP 134/73
[2021-05-21 05:37] LABS: HEMATOCRIT 37.5 % (37.0-47.0); HEMOGLOBIN 12.2 gm/dL (12.0-15.0); MCH 26.7 pg (26.0-34.0); MCHC 32.4 g/dL (28.0-37.0); MCV 82.5 fL (80.0-100.0); RBC 4.55 mil/uL (4.20-5.00); RDW 13.6 % (10.5-14.5); WBC 5.5 thou/uL (4.0-11.0)
[2021-05-21 05:58] LABS: CALCIUM 8.4 mg/dL (8.5-10.1); CREATININE 0.6 mg/dL (0.6-1.0); MAGNESIUM 1.6 mg/dL (1.8-2.4)
[2021-05-21 08:00] VITALS: BP 115/63
--- NOTE | 2021-05-21 08:19 | NUR ---
UPON SHIFT ASSESSMENT, PT AOX4, TEARFUL EXPRESSING SADNESS AND DEPRESSION. UPON DISCUSSION OF SYMPTOMS, PT REPORTS 'I JUST FEEL THROWN AWAY. THEYVE BEEN EVERYWHERE AND JIM BEEN IN THE BED'. FURTHERMORE, THROUGHOUT THE NIGHT PT EXPRESSING 'I JUST WANT TO ...JUST LET ME GO'. THERAPEUTIC COMMUNICATION PROVIDED FREQUENTLY PT REQUIRING REASSURANCE AND REDIRECTION. PT REPORTS 7-9/10 CONSTANT PAIN IN LLE. PT RECEIVING PRN PO APAP Q4HR. PT DENIES SOB WHILE ON ROOM AIR. PT TOLERATING PO INTAKE OF FLUIDS AND REGULAR DIET WITHOUT ISSUE. PT WITHOUT NAUSEA OR EMESIS. PT NONAMBULATORY, RESTING IN BED THROUGHOUT SHIFT, FREQUENT REPOSITIONING ENCOURAGED, REPOSITIONING ASSISTANCE PROVIDED. PT REPORTS NUMBNESS AND TINGLING IN LEFT FOOT. CAPILLARY REFILL LESS THAN 3SEC AND PERIPHERAL PULSES PALPABLE IN ALL EXTREMITIES. PT ENCOURAGED TO NOTIFY STAFF FOR ALL NEEDS, CALL LIGHT WITHIN REACH, BED ALARM ON, BED LOCKED IN LOWEST POSITION, ROOM REMAINS NEAR THE NURSES STATION, FREQUENT MONITORING WILL CONTINUE.
[2021-05-21 16:00] VITALS: BP 128/77
--- NOTE | 2021-05-21 16:40 | NUR ---
Assumed pt care this am, vs stable has been asleep for most of the shift. q2 turns done when the pt was awake. Diet adn medications are tolerated well. Refused miralax stating "that will make me poop the whole day". FC in place, patent. Left sided weaknes is noted, required assistance in repositioning. Bloos sugar checks done , medication given as per emar.
[2021-05-21 21:45] VITALS: BP 120/73
--- NOTE | 2021-05-22 07:45 | NUR ---
PT LYING IN BED. TYLENOL AND VOLTERAN GEL PROVIDING PAIN RELIEF. TURNING PER PT REQUEST. POSSIBLE DISCHARGE HOME 05/22. RESTING COMFORTABLY. NO NEEDS VOICED. CALL LIGHT WITHIN REACH. FREQUENT OBSERVATION.
[2021-05-22 08:45] VITALS: BP 141/85
[2021-05-22 11:23] LABS: CALCIUM 8.6 mg/dL (8.5-10.1); CREATININE 0.6 mg/dL (0.6-1.0); MAGNESIUM 1.6 mg/dL (1.8-2.4); POTASSIUM 3.6 mmol/L (3.5-5.1)
[2021-05-22 17:55] VITALS: BP 147/67
--- NOTE | 2021-05-22 18:30 | NUR ---
PT ASSESSED AT START OF SHIFT. SEEMS TO BE TURNING BETTER W/ ASSISTANCE. NO BM THIS SHIFT. S/P STOMA CARE AND SUBHASH CARE GIVEN. TURNED FREQUENTLY PER PT REQUEST. LT BREAST SL DISLODGED DURNING TURNING AND WAS DC'D. DR. ALMANZA NOTIFIED AND IV FLUIDS/MEDS DC'D. DAUGHTER WAS TO GET HOME THIS EVENING AT [address] PER PT REPORT SO DR. ALMANZA STATED PT WILL DC TOMORROW. HE WOULD CHANGE ANTIBIOTIC TO PO.
[2021-05-22 20:32] VITALS: BP 135/79
[2021-05-23 02:16] LABS: CALCIUM 8.5 mg/dL (8.5-10.1); CREATININE 0.5 mg/dL (0.6-1.0); MAGNESIUM 1.6 mg/dL (1.8-2.4); POTASSIUM 3.5 mmol/L (3.5-5.1)
--- NOTE | 2021-05-23 06:43 | NUR ---
PT LYING IN BED. TURNING PER PT REQUEST. TYLENOL AND VOLTERAN GEL PROVIDING PAIN RELIEF. RESTING COMFORTABLY. NO NEEDS VOICED. CALL LIGHT WITHIN REACH. FREQUENT OBSERVATION.
[2021-05-23 09:27] VITALS: BP 151/77
[2021-05-23 09:31] VITALS: BP 151/77
[2021-05-23] MEDS ORDERED: LISINOPRIL5 MG PO (11:57)
[2021-05-23] MEDS ORDERED: MIRALAX17 GM PO (11:58)
[2021-05-23] MEDS ORDERED: MACROBID 100 M100 MG PO (11:59)
--- NOTE | 2021-05-23 12:55 | NUR ---
ON-GOING ASSESSMENT: CM REVIEWED CHART AND SPOKE WITH PT AND ATTENDING. PT HAS ORDERS TO D/C HOME TODAY WITH HH. CM NOTIFIED [facility] OF DISCHARGE AND FAXED DISCHARGE ORDERS AND CONFIRMED THEY RECEIVED IT (SPOKE WITH LEVI ARNDT). CM CONTACTED [facility] AT [phone] AND ARRANGED STRETCHER TRANSPORT #[id number]. CM SPOKE WITH PATIENTS DAUGHTER AUTUMN TO CONFIRM SHE WILL BE AT THE HOME. TRANSPORT IS ARRANGED AT 1258 AND THERE IS A THREE HOUR WINDOW. CM NOTIFIED PT AND DAUGHTER.
--- NOTE | 2021-05-23 20:51 | NUR ---
Received awake on bed. Due medications given as prescribed, able to swallow meds w/o difficulty. On room air. Vital signs stable. On regular diet- tolerating well; no nausea, no vomiting and no abdominal pain noted. No IV noted this AM; physician aware as per night RN. On MS, not on telemetry; no complains and signs of chest pain, crushing sensation and heaviness. Assistedin ADLs. On blood sugar monitoring, taken and recorded accordingly. With suprapubic catheter in place; draining well; output measured and recorded. Pt turned on her sides regularly- may refuse at times. Possible discharge today- Dr Corey informed that pt wants to go home today; a/w orders. No complains of pain made during assessment. Discharge orders made by Dr Corey- CM and pt updated. Discharge instructions, follow up schedule given and instructed. Discharge forms signed. No IV and and no bank vault custodian noted. CM set up pick pulling machine tender time between [id number]- pt updated. Pt fetched via stretcher; transferred safely. Brought out of the unit with personal belongins and with cyndee lift sling; report given to transport staff. Patient discharged.
== END 2021-05-23 15:32 | disposition home health service (06) | DRG 389 ==
LOC: ER 12:06 → 4S 18:30
PROVIDERS: Emergency Medicine; Internal Medicine; ADMIT Internal Medicine; ATTEND Internal Medicine
DX: K56.699 Other intestinal obstruction unspecified as to partial versus complete obstruction (principal); Z68.43 Body mass index [BMI] 50.0-59.9, adult; I69.354 Hemiplegia and hemiparesis following cerebral infarction affecting left non-dominant side; Z16.12 Extended spectrum beta lactamase (ESBL) resistance; E44.0 Moderate protein-calorie malnutrition; K59.81 Ogilvie syndrome; N30.90 Cystitis, unspecified without hematuria; E66.01 Morbid (severe) obesity due to excess calories; K31.89 Other diseases of stomach and duodenum; F31.9 Bipolar disorder, unspecified; M17.0 Bilateral primary osteoarthritis of knee; E11.9 Type 2 diabetes mellitus without complications; I10 Essential (primary) hypertension; E78.5 Hyperlipidemia, unspecified; F41.9 Anxiety disorder, unspecified; N31.9 Neuromuscular dysfunction of bladder, unspecified; L30.4 Erythema intertrigo; G89.4 Chronic pain syndrome; D64.9 Anemia, unspecified; E55.9 Vitamin D deficiency, unspecified; E65 Localized adiposity; B96.20 Unspecified Escherichia coli [E. coli] as the cause of diseases classified elsewhere; Z79.899 Other long term (current) drug therapy; Z79.4 Long term (current) use of insulin
CPT/HCPCS: 10102

== ENCOUNTER 2021-05-31 13:34 | Inpatient (IN) | payer OTHER ==
[~2021-05-31] VITALS: Ht 162.6 cm; Wt 149.7 kg
--- NOTE | ~2021-05-31 | P ---
[facility] [place]ity [place] [address] PROCEDURE REPORT Name: KAILA CORONA YESO Room #: 459-P ADM IN M.R.#: [id number] Admission: 05/31/21 Attend Phys: Narinder Allen MD Discharge: Date of : 63 Report #: [id number] THIS REPORT FOR: cc: Angel Garces,Lewis Solomon MD ~ cc: Kelby Galindo MD, Narinder Allen MD DATE OF SERVICE: 06/02/2021 PROCEDURE PERFORMED: Colonoscopy with decompression. 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 She underwent a CT scan of the abdomen and pelvis on 05/31, which showed marked gaseous distention of the distal colon with marked distention of the sigmoid colon tapering at the level of the rectum, appearance is similar to previous exam. Apparently, the patient has had a colonoscopy several years ago that was negative. I do not have a copy of these results. She has had a rectal tube in place. She has had minimal improvement. She does report some abdominal pain. She is passing some liquid stool. We have put her on a bowel regimen including giving her Relistor. She is on chronic narcotics. Plan is for decompression. DESCRIPTION OF PROCEDURE: The risks and benefits of the procedure were explained to the patient, those risks including but not limited to bleeding, perforation, and the risk of sedation. She understood these risks and gave informed consent. Sedation was given using propofol per anesthesia. Next, the patient's rectal tube was deflated and removed without difficulty. A digital rectal exam was initially performed, which was normal. Next, using a standard Olympus colonoscope, the scope was placed in the patient's anus and advanced under direct vision to approximately the transverse colon. The overall prep was poor throughout. There was a large amount of semi-liquid stool throughout the left colon. I was able to aspirate about 1 liter of semi-liquid stool away. The colon was dilated all the way down to the rectum. There were no obvious masses. The amount of stool did limit visualization significantly. I was able to advance the scope slowly into what appears to be the transverse colon. I was unable to advance it any further due to looping due to the large dilated colon in general. At that point, I was able to see fairly solid stool in the transverse colon. At this point, I then proceeded with a decompression, decompressing all air possible in the transverse, descending and sigmoid colon as well as the rectum. Again, no obvious mucosal abnormalities were noted, but a very limited exam. There was significant decrease in the patient's abdomen after decompression. At this point, the scope was then withdrawn and the rectal tube was reinserted and reinflated and the balloon was reinflated in the rectum. [facility] [address] [place] [address] PROCEDURE REPORT Name: KAILA CORONA Room #: 459-P ADM IN M.R.#: [id number] Admission: 05/31/21 Attend Phys: Narinder Allen MD Discharge: Date of : 63 Report #: [id number] The procedure terminated. The patient tolerated the procedure well. IMPRESSION: 1. Large dilated colon throughout. 2. No obvious obstructing lesion, visualization significantly limited to the large amount of liquid and semi-liquid stool. Stool was aspirated as much as possible and the colon was decompressed significantly. RECOMMENDATIONS: 1. Observe the patient post-decompression. 2. Continue current medical regimen. 3. If the patient has continued dilation may need to consider surgical options. Dr. Galindo is following. Thank you for allowing me to participate in her care. By: [id number] Lewis Mcfadden MD /nt
--- NOTE | ~2021-05-31 | EMS ---
[address] [address] EMS Patient Care Report Name: KAILA CORONA Room #: 459-P ADM IN M.R.#: [id number] Admission: 05/31/21 Attend Phys: Narinder Allen MD Discharge: Date of : 63 Report #: [id number] THIS REPORT FOR: //name// Report Transmitted: 06/01/2021 01:24 EMS Care Summary [facility] Incident [id number] @ 05/31/2021 12:44 Incident Location [facility] [address] [place] [address] Patient KAILA CORONA Female, 55 Years 1965 Patient Address [address] [place] [address] Patient History Other,Diabetes,Hypertension (HTN),Stroke/CVA,Gastro-Esophageal Reflux Disease (GERD),Morbid Obesity,Bipolar II Disorder,Chronic Pain, Patient Allergies No known allergies, Patient Medications Victoza, Bacitracin, Insulin, Chief Complaint abdominal pain Disposition Transported No Lights/[place] Dis[place] Reason Abdominal Pain/Problems Transported To [facility] Narrative S51 responded non-emergent to abdominal pain dispatch. S51 arrived to find patient sitting supine in bed in living room. Patient was alert, airway was patent, breathing was regular and non-labored, skin was pink warm and dry. [address] [address] EMS Patient Care Report Name: KAILA CORONA Room #: 459-P ADM IN M.R.#: [id number] Admission: 05/31/21 Attend Phys: Narinder Allen MD Discharge: Date of : 63 Report #: [id number] Peripheral pulses equal, strong, and regular. Patient was A&Ox4 with a GCS of 15. Patient complained of abdominal pain described as aching in nature, and rated at 6/10 on pain scale. Patient stated pain began on 05/23/21 and has been getting increasingly worse. Patient's abdomen is distended and firm. Patient stated she has had very few bowel movements with minimal output. Patient was moved from bed to cot with smitha-printed circuit board reworker, secured with seatbelts and moved to the ambulance. Patient assessment revealed no other abnormalities. Vitals remained within normal range and reassessed en route. Patient transported non-emergent to [facility]. Transferred patient care to ARSH Dumont in room 1. Initial Vitals @13:05P: 92,R: 14,BP: 137/89,Pain: 6/10,GCS: 15,Glucose: 146,SpO2: 96,Revised Trauma: 12, @13:14P: 93,R: 14,BP: 136/102,Pain: 6/10,GCS: 15,CO: 9,SpO2: 96,Revised Trauma: 12, @13:18P: 92,R: 14,BP: 135/99,Pain: 6/10,GCS: 15,SpO2: 98,Revised Trauma: 12, @13:28R: 16,BP: 152/122,Pain: 6/10,GCS: 15,SpO2: 96,Revised Trauma: 12, Assessments @12:58MENTAL:No Abnormalities,SKIN:HEENT:Head/Face: No Abnormalities,LUNG SOUNDS:Right Upper: Distension,Left Upper: Distension,ABDOMEN:Right Upper: Distension,Left Upper: Distension,PELVIS//GI:No Abnormalities,EXTREMITIES:Left Arm: No Abnormalities,Right Arm: No Abnormalities,Left Leg: No Abnormalities,Right Leg: No Abnormalities,PULSE:NEURO:No Abnormalities, Impression Nausea Procedures @12:58ALS Assessment@13:053-Lead ECG Timeline 12:43,Call Received 12:43,Psap Call 12:44,Dispatched 12:47,En Route 12:49,Initial Responder On Scene 12:56,On Scene 12:57,At Patient 12:58,ALS Assessment, 13:05,3-Lead ECG, 13:05,BP: 137/89 M,PULSE: 92,RR: 14 R,SPO2: 96 Ox,ETCO2: ,B,PAIN: 6,GCS: 15, 13:05,Depart Scene 13:14,BP: 136/102 M,PULSE: 93,RR: 14 R,SPO2: 96 Ox,ETCO2: ,BG: ,PAIN: 6,GCS: [address] [address] EMS Patient Care Report Name: KAILA CORONA [place] Room #: 459-P ADM IN M.R.#: [id number] Admission: 05/31/21 Attend Phys: Narinder Allen MD Discharge: Date of : 63 Report #: [id number] 15, 13:18,BP: 135/99 M,PULSE: 92,RR: 14 R,SPO2: 98 Ox,ETCO2: ,BG: ,PAIN: 6,GCS: 15, 13:27,At Destination 13:28,BP: 152/122 M,PULSE: ,RR: 16 R,SPO2: 96 Ox,ETCO2: ,BG: ,PAIN: 6,GCS: 15, 13:29,Transfer Patient 13:56,Call Closed Disclaimer v1.1 Copyright 2020 [employer] This EMS Care Summary contains data elements from the applicable legal record (which may be displayed differently). It is designed to provide pertinent information for the following purposes: continuity of care, clinical quality, and state data reporting. The complete legal record is available to ED staff and administrators of the receiving hospital in [facility]'s Patient Tracker. All data is provided "as is."
--- NOTE | ~2021-05-31 | EMS ---
[address] [address] EMS Patient Care Report Name: KAILA CORONA Room #: 459-P [facility] IN M.R.#: [id number] Admission: 05/31/21 Attend Phys: Narinder Allen MD Discharge: 06/05/21 Date of : 63 Report #: [id number] THIS REPORT FOR: //name// Report Transmitted: 06/06/2021 06:57 EMS Care Summary [facility] Incident [id number] @ 05/31/2021 12:44 Incident Location [facility] [address] [place] [address] Patient KAILA CORONA Female, 55 Years 1965 Patient Address [address] [place] [address] Patient History Other,Diabetes,Hypertension (HTN),Stroke/CVA,Gastro-Esophageal Reflux Disease (GERD),Morbid Obesity,Bipolar II Disorder,Chronic Pain, Patient Allergies No known allergies, Patient Medications Victoza, Bacitracin, Insulin, Chief Complaint abdominal pain Disposition Transported No Lights/[place] Dispatch Reason Abdominal Pain/Problems Transported To [facility] Narrative S51 responded non-emergent to abdominal pain dispatch. S51 arrived to find patient sitting supine in bed in living room. Patient was alert, airway was patent, breathing was regular and non-labored, skin was pink warm and dry. [address] [address] EMS Patient Care Report Name: KAILA CORONA Room #: 459-P [facility] IN M.R.#: [id number] Admission: 05/31/21 Attend Phys: Narinder Allen MD Discharge: 06/05/21 Date of : 63 Report #: [id number] Peripheral pulses equal, strong, and regular. Patient was A&Ox4 with a GCS of 15. Patient complained of abdominal pain described as aching in nature, and rated at 6/10 on pain scale. Patient stated pain began on 05/23/21 and has been getting increasingly worse. Patient's abdomen is distended and firm. Patient stated she has had very few bowel movements with minimal output. Patient was moved from bed to cot with smitha-metal mover, secured with seatbelts and moved to the ambulance. Patient assessment revealed no other abnormalities. Vitals remained within normal range and reassessed en route. Patient transported non-emergent to [facility]. Transferred patient care to ARSH Dumont in room 1. Initial Vitals @13:05P: 92,R: 14,BP: 137/89,Pain: 6/10,GCS: 15,Glucose: 146,SpO2: 96,Revised Trauma: 12, @13:14P: 93,R: 14,BP: 136/102,Pain: 6/10,GCS: 15,CO: 9,SpO2: 96,Revised Trauma: 12, @13:18P: 92,R: 14,BP: 135/99,Pain: 6/10,GCS: 15,SpO2: 98,Revised Trauma: 12, @13:28R: 16,BP: 152/122,Pain: 6/10,GCS: 15,SpO2: 96,Revised Trauma: 12, Assessments @12:58MENTAL:No Abnormalities,SKIN:HEENT:Head/Face: No Abnormalities,LUNG SOUNDS:Right Upper: Distension,Left Upper: Distension,ABDOMEN:Right Upper: Distension,Left Upper: Distension,PELVIS//GI:No Abnormalities,EXTREMITIES:Left Arm: No Abnormalities,Right Arm: No Abnormalities,Left Leg: No Abnormalities,Right Leg: No Abnormalities,PULSE:NEURO:No Abnormalities, Impression Nausea Procedures @12:58ALS Assessment@13:053-Lead ECGResponse: UnchangedSucceeded Timeline 12:43,Call Received 12:43,Psap Call 12:44,Dispatched 12:47,En Route 12:49,Initial Responder On Scene 12:56,On Scene 12:57,At Patient 12:58,ALS Assessment, 13:05,3-Lead ECG,Response: UnchangedSucceeded, 13:05,BP: 137/89 M,PULSE: 92,RR: 14 R,SPO2: 96 Ox,ETCO2: ,B,PAIN: 6,GCS: 15, 13:05,Depart Scene 13:14,BP: 136/102 M,PULSE: 93,RR: 14 R,SPO2: 96 Ox,ETCO2: ,BG: ,PAIN: 6,GCS: [address] [address] EMS Patient Care Report Name: KAILA CORONA [place] Room #: 459-P [facility] IN M.R.#: [id number] Admission: 05/31/21 Attend Phys: Narinder Allen MD Discharge: 06/05/21 Date of : 63 Report #: [id number] 15, 13:18,BP: 135/99 M,PULSE: 92,RR: 14 R,SPO2: 98 Ox,ETCO2: ,BG: ,PAIN: 6,GCS: 15, 13:27,At Destination 13:28,BP: 152/122 M,PULSE: ,RR: 16 R,SPO2: 96 Ox,ETCO2: ,BG: ,PAIN: 6,GCS: 15, 13:29,Transfer Patient 13:56,Call Closed Disclaimer v1.1 Copyright 2020 [employer] This EMS Care Summary contains data elements from the applicable legal record (which may be displayed differently). It is designed to provide pertinent information for the following purposes: continuity of care, clinical quality, and state data reporting. The complete legal record is available to ED staff and administrators of the receiving hospital in [employer]'s Patient Tracker. All data is provided "as is."
[~2021-05-31 13:34] MED LIST changes: +DULOXETINE HCL60 MG PO; +LISINOPRIL5 MG PO; +VITAMIN D21250 MCG PO; +WIXELA 250-501 EACH INH
[2021-05-31 13:37] VITALS: BP 150/87
[2021-05-31 14:52] LABS: ABSOLUTE NEUTROPHILS 3.1 thou/uL (1.4-8.2); BASOPHILS 0.7 % (0.0-2.0); HEMATOCRIT 37.6 % (37.0-47.0); HEMOGLOBIN 12.3 gm/dL (12.0-15.0); LYMPHOCYTES 33.2 % (24.0-44.0); MCH 26.6 pg (26.0-34.0); MCHC 32.7 g/dL (28.0-37.0); MCV 81.4 fL (80.0-100.0); PLATELET COUNT 224 thou/uL (150-400); POLYS 55.1 % (36.0-66.0); RBC 4.62 mil/uL (4.20-5.00); RDW 13.5 % (10.5-14.5); WBC 5.6 thou/uL (4.0-11.0)
[2021-05-31 14:56] LABS: ALBUMIN 3.2 g/dL (3.4-5.0); ANION GAP 6 mmol/L (7-16); BUN 11 mg/dL (7-18); CALCIUM 9.2 mg/dL (8.5-10.1); CHLORIDE 108 mmol/L (98-107); CO2 28 mmol/L (21-32); CREATININE 0.6 mg/dL (0.6-1.0); DIRECT BILIRUBIN < 0.1 mg/dL (<0.1-0.2); GLUCOSE 154 mg/dL (74-106); LIPASE 48 U/L (73-393); SGOT 13 U/L (15-37); SGPT 22 U/L (14-59); SODIUM 142 mmol/L (136-145); TOTAL BILIRUBIN 0.4 mg/dL (0.2-1.0); TOTAL PROTEIN 7.2 g/dL (6.4-8.2); TROPONIN-I <0.06 ng/mL (<0.06)
[2021-05-31 14:58] LABS: POTASSIUM 2.7 mmol/L (3.5-5.1)
[2021-05-31 19:03] LABS: URINE BILIRUBIN NEGATIVE (Negative); URINE BLOOD 3+ (Negative); URINE CLARITY CLEAR; URINE COLOR YELLOW; URINE GLUCOSE-RANDOM* NEGATIVE (Negative); URINE KETONES TRACE (Negative); URINE NITRITE-REFLEX NEGATIVE (Negative); URINE PROTEIN (DIPSTICK) 2+ (Negative); URINE SPECIFIC GRAVITY >= 1.030 (1.005-1.035); URINE UROBILINOGEN 0.2 E.U./dl (0.2-1.0)
[2021-05-31 19:13] LABS: URINE LEUKOCYTES-REFLEX 1+ (Negative)
[2021-05-31 19:17] LABS: CASTS None Seen /LPF (None Seen); SQUAMOUS 0-3 Few /LPF (0-3); URINE RBC 3-10 Few /HPF (NONE SEEN); URINE WBC-REFLEX 6-15 Few /HPF (0-5)
[2021-05-31 19:18] LABS: BACTERIA-REFLEX 1-9 Few /HPF (None Seen); CRYSTALS None Seen /LPF (None Seen); YEAST-REFLEX Present (None Seen)
[2021-05-31 21:18] VITALS: BP 168/78
[2021-05-31 22:16] VITALS: BP 128/79
--- NOTE | 2021-06-01 00:21 | NUR ---
Pt admitted from ED at 2119 with Abd pain/Ileus. A/OX4,VSS. Denies pain on admission,no N/V. Rectal tube in place with no output. Abd distended and firm to touch,passing flatus. Has left side hemiparesis,able to help with repositioning. Pt is NPO,IVF initiaited via RAC w/o problems. Fall education reinforced and pt agrees to call for help. Pt requested for sleep aid,order for Benadryl obtained. Resting quietly at this time w/o distress noted,SR on telemetry.Will continue to monitor pt.
[2021-06-01 07:40] VITALS: BP 176/113
--- NOTE | 2021-06-01 14:39 | NUR ---
PT ADMITTED RELATED TO ABD PAIN AND ILEUS. [facility] PT RESIDES IN A HOUSE WITH HER DTR AUTUMN WHO IS HER HCBS PAID CAREGIVER 4 HRS PER DAY 7 DAYS A WEEK. PT HAS A HOSPITAL BED, ROBIN LIFT, AND WC FOR HOME USE. PT HAD BEEN ON SERVICE WITH [facility] JANITORIAL ASSISTANT. PT INDICATED SHE ANTICIPTES RETURNING HOME AND RESUMING SERVICES WITH TERRE HAUTE ONCE MEDICALLY STABLE. PT HAD RECTAL TUBE IN PLACE AT THIS TIME. PT IS TO HAVE A KUB AND A SURGERY CONSULT. CM FOLLOWING REGARDING DC PLANNING.
--- NOTE | 2021-06-01 15:36 | NUR ---
PT IS A&O*4, BE Q2 TURN DUE TO OBESITY BY 2 TO 3 STAFF. NPO WITH NS BY IV @100ML/HR. NO NAUSEA REPORTED. WILL KEEP MONITOR PATIENT'S SAFETY.
[2021-06-01 16:20] VITALS: BP 167/96
[2021-06-01 20:15] VITALS: BP 183/85
[2021-06-01 21:30] VITALS: BP 174/98
[2021-06-01 21:35] VITALS: BP 171/98
--- NOTE | 2021-06-02 05:50 | NUR ---
Assumed pt care at 1900. A/OX4,VSS. C/o pain to LLE,new order given for Toradol PRN. Some relief reported after pain meds. Abd still distended,pt passinbg gas;rectal tube in place with liquid output. Supra-pubic cath in place with yellow urine. Pt has been NPO since midnight for colonic decompression a little tearful about it. 1:1 reassuarance provided. NSR on telemetry.
[2021-06-02 08:22] VITALS: BP 155/96
--- NOTE | 2021-06-02 12:28 | NUR ---
PT JUST PICKED UP FOR PROCEDURE.
[2021-06-02 13:42] LABS: CALCIUM 8.6 mg/dL (8.5-10.1); CREATININE 0.6 mg/dL (0.6-1.0)
[2021-06-02 13:53] LABS: POTASSIUM 2.7 mmol/L (3.5-5.1)
--- NOTE | 2021-06-02 14:38 | NUR ---
PT WITH RECTAL TUBE STILL IN PLACE. PT WENT FOR DECOMPRESSION THIS DAY. SURGERY HAD ALSO BEEN CONSULTED AGAIN FOR POSSIBLE SURGICAL INTERVENTION. CM FOLLOWING REGARDING DC PLANNING.
--- NOTE | 2021-06-02 15:12 | NUR ---
Kiran PALOMO COMPLETED ON 05/13/21. PT WAS DEEMED AT THAT TIME TO NOT BE A CANDIDATE FOR SKILLED P.T. SERVICES IN THE HOSPITAL SETTING PT REQUIRES TOTAL CARE AND BASELINE AND UTILIZES A ROBIN LIFT FOR TRANSFERS. PT OFF UNIT FOR COLONIC DECOMPRESSION THIS P.M. PER RN. Kiran PALOMO DEFERRED AT THIS TIME.
[2021-06-02 20:00] VITALS: BP 170/70
[2021-06-03 02:29] LABS: HEMATOCRIT 35.4 % (37.0-47.0); HEMOGLOBIN 11.8 gm/dL (12.0-15.0); MCH 26.7 pg (26.0-34.0); MCHC 33.3 g/dL (28.0-37.0); MCV 80.3 fL (80.0-100.0); RBC 4.41 mil/uL (4.20-5.00); WBC 6.9 thou/uL (4.0-11.0)
[2021-06-03 02:37] LABS: CALCIUM 8.4 mg/dL (8.5-10.1); CREATININE 0.5 mg/dL (0.6-1.0); MAGNESIUM 1.4 mg/dL (1.8-2.4)
[2021-06-03 02:38] LABS: POTASSIUM 2.9 mmol/L (3.5-5.1)
--- NOTE | 2021-06-03 05:52 | NUR ---
Assumed pt care @1900. A/OX4,VSS.C/o pain to LLE/rectum and wanted rectal tube taken out. contacted and okay with rectal tube being pulled out. Pt incontinent of loose BM,Abd not distended any more and pt reports feeling much better. Suprapubic in place,INTERNATIONAL TRADE MANAGER reported some leaking around it. On assessment pt indicated it was last changed on April 28,will endorse to oncoming nurse. Pt has no PIV,attempts to reinsert one unsuccessful X6,Felt Hat Inspector And Packer and DAIRY CHEMIST aware instructed to request IV team to do it during the day. Potassium infusion not completed;Philip Harris notified order to recheck it K+ 2.9. Field Service Technician Poultry Bertha on duty and updated on status;n.o for Potassium/MagOX given, pt updated. SR on telemetry. Fall precautions in place,calls approp for help to be repositioned frequently.
[2021-06-03 07:34] VITALS: BP 157/106
[2021-06-03 08:57] VITALS: BP 175/97
--- NOTE | 2021-06-03 11:49 | NUR ---
VAT CONSULTED FOR PIV, VESSELS TOO DEEP . DISCUSSED MIDLINE BENEFITS AND RISK WITH PT, VERBALIZED AGREEMENT TO ML. DAVID BASILIC WAS WIDELY PATENT WITH USG, 4FR POWER MIDLINE TRIMMED TO 15CM INSERTED X1 STICK TO 0CM WITH BRISK BR. PT TOLERATED WELL. ML RELEASED FOR IMMEDIATE USE PER PROTOCOL.
--- NOTE | 2021-06-03 15:10 | NUR ---
CARE TEAM INDICATED THAT PT WILL LIKELY BE MEDICALLY STABLE TO DC HOME TOMORROW Sunday06/04/21. CM NOTIFIED PT AND HER DTR PEDRO NAM. PT WILL NEED TRASNPORTATION HOME AND HAS MEDICAID SO IT WILL HAVE TO BE ARRANGED THROUGH [facility] AND REQUEST STRETCHER TRANSPORTATION. YOU WILL NEED PATIENTS MEDICAID NUMBER [id number] AND WEIGHT 330LBS. NOTIFY [employer] NAM OF ANTICIPATED TIME OF CLARIFYING PLANT OPERATOR SHE CAN BE REACHED AT [phone]. [facility] WILL RESUME HOME HEALTH AT DISCHARGE. ONCE ORDERS ARE IN FAX THEM TO [facility] FAX [phone] AND NOTIFY THEM AT [phone]. CM SPOKE WITH [facility] ON SUNDAY TO UPDATE PT WILL LIKELY DISCHARGE SUNDAY.
[2021-06-03 15:41] VITALS: BP 139/75
[2021-06-03 16:29] VITALS: BP 139/75
--- NOTE | 2021-06-03 18:55 | NUR ---
PT IS A&O*4. ROOM AIR. NEED TWO PEOPLE TO TURN PEOPLE Q2. ONE DOSE TYLENOL ORDERED BY GI BULK TRUCK DRIVER FOR HEADACHE, PT REPORT RELIEFED. DICLOFENAC GEL APPLIED ON LEFT KEEN AREA TWICE FOR STIFFNESS AND PAIN RELIEF. POTASSIUM GIVEN 4 DOSES FOR LOW POTASSIUM 2.9. NOTIFIED IN PERSON. BED ALARM IS ON. WILL KEEP MONITOR PATIENT SAFETY.
[2021-06-03 19:33] VITALS: BP 165/89
--- NOTE | 2021-06-04 01:39 | NUR ---
PATIENT AOX4 MAKES NEEDS KNOWN. PATIENT TURNED Q 2 HOURS. CATH CARE DONE THIS SHIFT. PERICARE AND BARRIER CARE DONE NEEDED. PATIENT INPATIENT THIS SHIFT. NEEDS METS NEEDED. PATIENT NEEDS X2 ASSISTANCE WITH ADL, BED MOBILITY AND TOILETING. FALL PRECAUTION IN PLACE. NAUSEA AND PAIN CONTROLLED THIS SHIFT. PATIENT IN BED ASLEEP AT THIS TIME BREATHING REGULAR AND UNLABOURED.
[2021-06-04 06:13] LABS: HEMATOCRIT 35.3 % (37.0-47.0); HEMOGLOBIN 11.5 gm/dL (12.0-15.0); MCH 26.2 pg (26.0-34.0); MCHC 32.6 g/dL (28.0-37.0); MCV 80.3 fL (80.0-100.0); RBC 4.4 mil/uL (4.20-5.00); WBC 6.3 thou/uL (4.0-11.0)
[2021-06-04 06:33] LABS: ALBUMIN 3.1 g/dL (3.4-5.0); CALCIUM 8.4 mg/dL (8.5-10.1); CREATININE 0.6 mg/dL (0.6-1.0); TOTAL BILIRUBIN 0.3 mg/dL (0.2-1.0)
[2021-06-04 08:10] VITALS: BP 151/76
[2021-06-04] MEDS ORDERED: NYAMYC15 GM TOP (12:57)
[2021-06-04] MEDS ORDERED: FLUCONAZOLE 10100 MG PO (12:57)
[2021-06-04] MEDS ORDERED: DICLOFENAC SOD100 G1 TOP (12:57)
[2021-06-04] MEDS ORDERED: K-DUR 20 MEQ T20 MEQ PO (12:57)
[2021-06-04] MEDS ORDERED: MAGNESIUM400 MG PO (12:57)
[2021-06-04] MEDS ORDERED: MAG-AL PLUS SUS30 ML PO (12:57)
[2021-06-04 17:44] VITALS: BP 159/110
--- NOTE | 2021-06-04 18:24 | NUR ---
PT IS A&O*4, ROOM AIR. NEED MAX ASSITANCE TURN Q2. BM TODAY 06/04. PO AND IV POTASSIUM AND MAGNISUM HAS BEEN GIVEN PER ORDER. BED BATH PROVIDE. NSR SHOWING ON TELE. TRANSPORTATION HAS BEEN SET UP AND ARRIVE WITH THE THREE HOUS WINDOW UNTIL 19:40. TELE AND IV REMOVED. DISCHARGE EDUCATION AND DOCUMENTATIONS (DISCHARGE PAPER AND NEW PRESCRIPTION PAPER). WILL KEEP MONITOR PATIENT'S SAFETY UNTIL LEAVING THE FLOOR.
--- NOTE | 2021-06-05 01:06 | NUR ---
PATIENT HAD HS MEDS. PATIENT DENIED PAIN OR DISCOMFORT. PATIENT WAS PICKED UP AT AROUND 0100 AFTER CALLING TRANSPORT TWICE. PATIENT LEFT WITH ALL HER BELONGINGS.DISCHARGE PAPERS GIVEN. PATIENT LEFT WITH A STRETCHER ACCOMPANIED BY 2 PARAMEDICS.
== END 2021-06-05 01:00 | disposition home health service (06) | DRG 345 ==
LOC: ER 13:34 → EROBS 15:44 → 4W 15:44
PROVIDERS: Anesthesiology; Emergency Medicine; Nurse Practitioner; ADMIT Internal Medicine; ATTEND Internal Medicine
PROC: 0D9P7ZZ Drainage of Rectum, Via Natural or Artificial Opening (ICD-10-PCS; 2021-06-01)
PROC: 0D2 Gastrointestinal System, Change (ICD-10-PCS; 2021-06-02)
PROC: 0D9G8ZZ Drainage of Left Large Intestine, Via Natural or Artificial Opening Endoscopic (ICD-10-PCS; 2021-06-02)
PROC: 05HB33Z Insertion of Infusion Device into Right Basilic Vein, Percutaneous Approach (ICD-10-PCS; principal; 2021-06-03)
PROC: B54MZZA Ultrasonography of Right Upper Extremity Veins, Guidance (ICD-10-PCS; principal; 2021-06-03)
DX: K59.81 Ogilvie syndrome (principal); K56.7 Ileus, unspecified; I69.354 Hemiplegia and hemiparesis following cerebral infarction affecting left non-dominant side; Z68.43 Body mass index [BMI] 50.0-59.9, adult; K51.90 Ulcerative colitis, unspecified, without complications; B37.49 Other urogenital candidiasis; E11.9 Type 2 diabetes mellitus without complications; F31.9 Bipolar disorder, unspecified; E78.5 Hyperlipidemia, unspecified; F41.9 Anxiety disorder, unspecified; E66.01 Morbid (severe) obesity due to excess calories; I10 Essential (primary) hypertension; N31.9 Neuromuscular dysfunction of bladder, unspecified; R53.81 Other malaise; M17.0 Bilateral primary osteoarthritis of knee; Z20.822 Contact with and (suspected) exposure to COVID-19; Z79.899 Other long term (current) drug therapy; Z79.4 Long term (current) use of insulin; Z74.01 Bed confinement status
CPT/HCPCS: 10045; 27000; 62110; 62900; 70005

== ENCOUNTER 2021-07-19 19:57 | Inpatient (IN) | payer OTHER ==
[~2021-07-19] VITALS: Ht 152.4 cm; Wt 141.6 kg
--- NOTE | ~2021-07-19 | O ---
[facility] [place] [address] OPERATIVE REPORT Name: KAILA CORONA [place] Room #: 455-P [facility] IN M.R.#: [id number] Admission: 07/19/21 Attend Phys: Josue Shanks MD Discharge: Date of : 63 Report #: [id number] THIS REPORT FOR: cc: Angel Garces,Migue Diego MD ~ DATE OF SERVICE: 07/25/2021 PREOPERATIVE DIAGNOSES: [place] syndrome, chronic constipation. POSTOPERATIVE DIAGNOSES: [place] syndrome, chronic constipation. OPERATION: Laparoscopic-assisted subtotal colectomy with ileostomy. SURGEON: Migue Jones MD ANESTHESIA: General. ESTIMATED BLOOD LOSS: 100 mL SPECIMENS: Subtotal colectomy. DESCRIPTION OF PROCEDURE: After informed consent was obtained, the patient was brought to the operating room and placed supine. SCDs were placed and working, preoperative antibiotics were administered, general anesthesia was induced. The abdomen was prepped and draped in the usual sterile fashion. A 10 mm incision was made above the umbilicus. Fascia was incised and a 10 mm trocar was inserted. Pneumoperitoneum was established. I was then able to insert two 5 mm trocars under direct vision, one in the left lower quadrant and one in the left upper quadrant. I began dissection of the left colon. It was grasped and retracted medially. The white line of Toldt was incised. This dissection was carried up to the splenic flexure. The splenic flexure was then freed up with the LigaSure device. There was excellent hemostasis. The splenocolic ligament was incised. The lateral attachments of the colon were incised and the gastrocolic ligament was incised. This allowed for medial mobilization of the splenic flexure. Attention was then directed to the right colon. The cecum was grasped and retracted medially. The white line of Toldt was again mobilized by incising it and reflecting the colon medially. The hepatic flexure was freed up using the LigaSure device. At this point, the laparoscope was removed. I extended the incision superiorly and inferiorly. The colon was then exteriorized. I first transected the ileum at approximately 10 cm from the ileocecal valve. I then ligated the mesentery using the LigaSure device. I stayed very close to the colon. The mesentery was [address] [address] OPERATIVE REPORT Name: CJKAILARobi BAUER Room #: 455-P [facility] IN ..#: [id number] Admission: 07/19/21 Attend Phys: Josue Shanks MD Discharge: Date of : 63 Report #: [id number] then ligated from the cecum to the hepatic flexure, then across the transverse colon. The splenic flexure was then grasped and the mesentery was again ligated. Ligation of the mesentery continued inferiorly down the left colon. The rectosigmoid was identified and a HONG green load stapler was used to staple this off. The specimen was then sent off. The abdomen was then copiously irrigated with normal saline. The small bowel was examined and was normal. It was brought out through an incision in the right upper quadrant of the abdomen. The fascia was then closed with #1 looped PDS. The skin was then closed with dax. Corrina ileostomy was then fashioned using 4-0 Vicryl suture in standard fashion. Ostomy appliance was placed. Sterile dressings were applied. COMPLICATIONS: None. DISPOSITION: The patient was taken to recovery in satisfactory condition. By: 0619 0628 Migue Jones MD /itzel
[~2021-07-19 19:57] MED LIST changes: +DICLOFENAC SOD100 G1 TOP; +FLUCONAZOLE 10100 MG PO; +K-DUR 20 MEQ T20 MEQ PO; +MAG-AL PLUS SUS30 ML PO; +MAGNESIUM400 MG PO
[2021-07-19 20:08] VITALS: BP 150/87
[2021-07-19 22:25] LABS: ABSOLUTE NEUTROPHILS 3.6 thou/uL (1.4-8.2); BASOPHILS 0.9 % (0.0-2.0); EOSINOPHILS 3.3 % (0.0-3.0); HEMATOCRIT 38.1 % (37.0-47.0); HEMOGLOBIN 12.5 gm/dL (12.0-15.0); LYMPHOCYTES 34.5 % (24.0-44.0); MCH 26.4 pg (26.0-34.0); MCHC 32.9 g/dL (28.0-37.0); MCV 80.4 fL (80.0-100.0); PLATELET COUNT 209 thou/uL (150-400); POLYS 54.3 % (36.0-66.0); RBC 4.74 mil/uL (4.20-5.00); RDW 13.9 % (10.5-14.5); WBC 6.6 thou/uL (4.0-11.0)
[2021-07-19 22:33] LABS: CALCIUM 8.4 mg/dL (8.5-10.1); CREATININE 0.8 mg/dL (0.6-1.0); POTASSIUM 3.5 mmol/L (3.5-5.1)
[2021-07-19 22:39] LABS: ALBUMIN 3.1 g/dL (3.4-5.0); TOTAL BILIRUBIN 0.2 mg/dL (0.2-1.0); TOTAL PROTEIN 7.4 g/dL (6.4-8.2)
[2021-07-20 15:00] VITALS: BP 145/88
[2021-07-20 16:25] VITALS: BP 155/103
--- NOTE | 2021-07-20 19:00 | NUR ---
Pt arrived to floor from emergency room at 1625 in stable condition. Admission hx, assessment and care plan completed.Pt c/o dry and stink mouth.Requested for sugar free gum.None available. Rn asked pt to call family to bring some for her.Castaneda cath to dd and fecal mgt intact. Repositioned pt q2h in bed for comfort. Report off to Katherin beckman.
[2021-07-20 20:05] VITALS: BP 154/98
--- NOTE | 2021-07-21 02:54 | NUR ---
PT CARE ASSUMED WITH PT IN BED WATCHING TV.PT IS A/O X4.PT IS BEDBOUND AND ON BEDREST.PT IS TOTAL CARE AND Q2H AND PRN REPOSITIONING.PT C/O PAIN AND PAIN MANAGED WITH MORPHINE IV ORDERED.BENADRYL ORDERED IV FOR SLEEP AID.PT HAS A FRANCO CATHETER IN PLACE AND A FECAL MGT.PT NPO .HYPOACTIVE BOWEL SOUNDS.IV ACCESS ON RT HAND WITH NS AT 100CC/HR.WILL CONTINUE TO MONITOR PER POC
[2021-07-21 05:35] LABS: CALCIUM 7.6 mg/dL (8.5-10.1); CREATININE 0.5 mg/dL (0.6-1.0); POTASSIUM 3.2 mmol/L (3.5-5.1)
--- NOTE | 2021-07-21 08:20 | NUR ---
Chart review, case opened. Cm visited with bedside nurse. Cm visited with yakov at bedside, a & o x 3, tearful and able to make her needs know. Active listen and support, offered to come back later to visit and she cont to visit with cm. Noted she did plus call light and ask for pain medication, cm again offered to come back and visit when she is not in pain and she cont to visit. She lives at home in her own little space with her daughter and gandkids. she is not able to stand or walk. Has electric wheel chair, hospital bed, cyndee lift. daughter yakov villalobos manage own medication. PCP Does zoom visit and used to come to the house. Have supra pubic cath since stroke. take daily bed bath. Daughter wilfredo. been to [facility], [facility] and will not take me back because of packages i had go fund me page and was getting to many gifts there. [facility] in past per yakov. She is agreeable to hh or rehab in needed. Will cont following as needed for dc needs.
[2021-07-21 17:14] LABS: URINE BILIRUBIN NEGATIVE (Negative); URINE BLOOD TRACE (Negative); URINE CLARITY CLEAR; URINE COLOR YELLOW; URINE GLUCOSE-RANDOM* NEGATIVE (Negative); URINE KETONES NEGATIVE (Negative); URINE LEUKOCYTES-REFLEX TRACE (Negative); URINE NITRITE-REFLEX NEGATIVE (Negative); URINE PROTEIN (DIPSTICK) TRACE (Negative); URINE UROBILINOGEN 0.2 E.U./dl (0.2-1.0)
--- NOTE | 2021-07-21 17:55 | NUR ---
Assumed pt care this am, received NPO and with a rectal tube with no out put. Suprapubic cat in place draining yellow urine. Pain is managed with medications partial relief is noted. Rectal tube was removed prior to decompression, pt came back from the OR late in the pm. Still maintained NPO as per not of GI. Pt is obese, turned and repositioned when allowed.
[2021-07-22 04:48] VITALS: BP 131/71
--- NOTE | 2021-07-22 05:48 | NUR ---
Pt. rested quietly at intervals during the night when checked on during frequent rounds. Scheduled pain meds given for pain (see emar) with some relief noted. Fecal tube in place, but no stool output this shift. Turned and repositioned. Bed alarm is on.
--- NOTE | 2021-07-22 05:57 | NUR ---
Blood pressure elevated earlier and Bertha RODRIGUEZ notified. New orders to start her home bp meds (see cpoe). Med given (see emar) and bp doen this am (see VS).
--- NOTE | 2021-07-22 11:37 | NUR ---
VAT CONSULTED FOR MIDLINE. PT'S LABS,MEDS,HX,REVIEWED DICUSSED ML BENEFITS AND RISK WITH PT, VERBALIZED UNDERSTANDING AND GAVE CONSENT FOR ML. DAVID ELLIS WAS WIDELY PATENT WITH USG. 4FR POWER MISLINE TRIMMED TO 15CM INSERTED TO 0CM WITH BRISK BR. ML RELEASED FOR IMMEDIATE USE PER PROTOCOL TO TERRI CABAN. PT TOLERATED WELL
--- NOTE | 2021-07-22 12:03 | NUR ---
Assumed pt care this am, vs stable changed from NPO to clears. Diet and medication tolerated well. IV out when received, mid line placed by IV team on the right upper arm. No output in the rectal tube placed by OR yesterday. Repositoning done when allowed. Supra puboc in place draining yellow urine.
--- NOTE | 2021-07-22 14:13 | NUR ---
Discussed during los with the hospitalist, no anticipated dc over the weekend. Still has rectal tube, possible will need colostomy. possible able to advance diet as ordered by MD/GI. Will cont. following as needed for dc needs.
[2021-07-22 15:40] VITALS: BP 143/100
[2021-07-22 21:00] VITALS: BP 100/19
[2021-07-22 23:36] LABS: ABSOLUTE NEUTROPHILS 3.7 thou/uL (1.4-8.2); BASOPHILS 0.5 % (0.0-2.0); EOSINOPHILS 2.1 % (0.0-3.0); HEMATOCRIT 35.7 % (37.0-47.0); HEMOGLOBIN 11.5 gm/dL (12.0-15.0); LYMPHOCYTES 25.1 % (24.0-44.0); MCH 25.9 pg (26.0-34.0); MCHC 32.3 g/dL (28.0-37.0); MCV 80.2 fL (80.0-100.0); MONOCYTES 7.7 % (1.0-8.0); PLATELET COUNT 217 thou/uL (150-400); POLYS 64.6 % (36.0-66.0); RBC 4.44 mil/uL (4.20-5.00); RDW 13.8 % (10.5-14.5); WBC 5.7 thou/uL (4.0-11.0)
[2021-07-22 23:46] LABS: CALCIUM 8.5 mg/dL (8.5-10.1); CREATININE 0.6 mg/dL (0.6-1.0); POTASSIUM 3.1 mmol/L (3.5-5.1)
--- NOTE | 2021-07-23 04:52 | NUR ---
ASSUMED PT CARE AT 2010.PT IS ALERT AND ORIENTED X4. PT WAS TEARFUL AND DOWNCAST ABOUT POSSIBLE PLACEMENT OF COLOSTOMY; PER PT" I HAVE A PEE BAG AND POOP BAG SO MY FAMILY WILL GET TIRED AND WILL NOT WANT TO TAKE CARE OF ME". PT HAS HYPOACTIVE BW SOUNDS WITH FIRM ABD. PT HAS FMS AND SUPRAPUBIC CATH IN PLACE. PT HAS MID IN THE DAVID WHICH IS PATENT. PT IS Q2HR TURN. PT TOLERATING RA. MEDS GIVEN PER EMAR ORDERS. FALL PRECAUTIONS IN PLACE. WILL CONTINUE TO MONITOR.
[2021-07-23 06:07] VITALS: BP 152/91
[2021-07-23 07:30] VITALS: BP 184/91
[2021-07-23 15:55] VITALS: BP 165/99
[2021-07-23 19:40] VITALS: BP 132/71
[2021-07-24 00:02] LABS: CALCIUM 8.5 mg/dL (8.5-10.1); CREATININE 0.6 mg/dL (0.6-1.0); MAGNESIUM 1.5 mg/dL (1.8-2.4); PHOSPHORUS 2.4 mg/dL (2.5-4.9)
[2021-07-24 00:06] LABS: POTASSIUM 2.9 mmol/L (3.5-5.1)
[2021-07-24 05:00] VITALS: BP 168/94
--- NOTE | 2021-07-24 06:00 | NUR ---
Pt. rested quietly at intervals during the shift. Bp elevated (see vs). Bertha CLAIMS SPECIALIST notified and hydralazine ordered and given (see emar). She also had critical K+(see poc). K+ protocal followed (see emar). Pt. turned and repositioned. Bed alarm is on.
[2021-07-24 16:35] VITALS: BP 133/81
--- NOTE | 2021-07-24 19:53 | NUR ---
Assumed pt meera this am, requires to be turned q2 max assistance needed. Supra pubic in place and patent. Rectal tube in place with no out put. Scheduled for surgery tomorrow to be NPO. POC followed, pain managed with medications partial relief is noted. endorsed to the night nurse.
[2021-07-24 21:00] VITALS: BP 152/79
--- NOTE | 2021-07-25 03:45 | NUR ---
PT A & O X4, BED BATH COMPLETED, REPORTS NO PAIN, BUT DISCOMFORT, REPOSITIONING IN PROGRESS EVERY 2HRS AND NEEDED, +2 PULSE IN ALL FOUR EXTREMITY NERVOUS ABOUT UPCOMING SURGERY,EDUCATION PROVIDED, RECOMMENDED PT TO INQUIRE MORE FROM THE SURGEON BEFORE PROCEDURE. NPO AFTER MIDNIGHT, WATCHING TV AT THIS TIME NO ADVERSE REACTION NOTED FROM THE CURRENT TREATMENT. WILL CONTINUE TO MONITOR THE PATIENT. PRN LORAZEPAM, ADMINISTERED PER PT REQUEST. POTASSIUM 20MEQ TAB ADMINISTERED PER PROTOCOL FOR K+ LESS THAN 3.4, NEW LAB ORDERS IN PLACE TO BE COMPLETED.NON PITTING EDEMA ON THE LEFT FOOT RAISED TO HELP THE SWELLING. PT REPORTS NO PAIN DURING DURING ASSESSMENT. INCONTINENT OF BOWEL X1 VERY LOOSE. 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 IV ON THE DAVID RUNNING EFFECTIVELY NO SIGNS OF INFECTION NOTED ON THE SITE, IV PATENT, DRESSING CLEAN AND INTACT. CALL LIGHT WITHIN REACH, HEAD OF THE BED RAISED, MOOD PLEASANT, AND CALM WILL CONTIUE TO MONITOR PT.
[2021-07-25 04:43] LABS: HEMATOCRIT 33.5 % (37.0-47.0); HEMOGLOBIN 11.2 gm/dL (12.0-15.0); MCH 26.8 pg (26.0-34.0); MCHC 33.5 g/dL (28.0-37.0); MCV 80.2 fL (80.0-100.0); RBC 4.18 mil/uL (4.20-5.00); RDW 13.6 % (10.5-14.5); WBC 5.4 thou/uL (4.0-11.0)
[2021-07-25 04:52] LABS: CALCIUM 8.4 mg/dL (8.5-10.1); CREATININE 0.6 mg/dL (0.6-1.0); POTASSIUM 3.4 mmol/L (3.5-5.1)
[2021-07-25 08:28] VITALS: BP 162/91
[2021-07-25 16:14] LABS: MAGNESIUM 1.5 mg/dL (1.8-2.4); POTASSIUM 3.7 mmol/L (3.5-5.1)
--- NOTE | 2021-07-25 16:35 | NUR ---
Pt had Subtotal colectomy with ileostomy done this day. Cm following regarding dc planning. PT has discharged home with [facility] the past few discharges. Cm following regarding dc planning needs.
[2021-07-25 19:54] VITALS: BP 93/73
--- NOTE | 2021-07-25 20:44 | NUR ---
PATIENT TAKEN TO SURGERY THIS AM. OFF UNIT FOR ENTIRE MORNING INTO THE AFTERNOON. PATIENT RETURNED TO UNIT, VSS. PLACED ON ROOM AIR. SMALL AMOUNT OF RED BLOOD DRAINAGE TO ILLEOSTOMY. LATER THIS EVENING NOTED PATIENT CONTINOUSLY BLEEDING FROM ILLEOSTOMY, AROUND RIGHT SIDE OF STOMA. APPROXIMATELY 2L OF BLOOD MEASURED, WITH LARGE SIZE CLOTS. NOTIFIED DR. CUMMINS. PRESSURE HELD TO SITE FOR OVER [address] CUMMINS ARRIVED. REQUESTED FOR SURGICEL. OBTAINED. DR. CUMMINS ABLE TO ACHIEVE HEMOSTATSIS WITH THE SURGICEL. SUTURE KIT AT BEDSIDE INCASE ANY EVENTS HAPPEN OVER NIGHT. DRESSING CHANGED TO ABDOMINAL SURGICAL INCISION DUE TO SATURATION FROM BLEEDING OSTOMY. MIDLINE DRESSING CHANGED BY THIS RN. RE-DRAW FOR MAG AND POTASSIUM PER PROTOCOL. POTASSIUM 3.7 AND MG 1.5, REPLACED PER ORDERS. PATIENT VOCIED PAIN POST OP. NOT TOLERATING PO MEDICATIONS, INDUCED NAUSEA. ORDERS FOR PRN FENTANYL FOR PAIN.
[2021-07-26 00:40] VITALS: BP 94/80
--- NOTE | 2021-07-26 05:14 | NUR ---
ASSUMED PT CARE THIS EVENING. PT IS ALERT AND ORIENTED X4. PT WAS MADE NPO PER DR. CUMMINS ORDERS DUE TO BLEEDING FROM THE STOMA ON PREVIOUS SHIFT. NO BLEEDING FROM THE STOMA WAS NOTED. THE STOMA IS PRORUDING AND RED. THERE IS DARK BROWN FLUID CONTENT IN THE ILEOSTOMY BAG. FLUID WAS LEAKING THROUGH THE OSTOMY SKIN BARRIER AND HAD TO BE REINFORRCED. PT HAS MIDLINE TO THE DAVID WHICH IS PATENT WITH NO REDNESS OR SWELLLING. PT HAS SUPRAPUBIC CATH IN PLACE. VS ARE WITHIN NORMAL RANGE. FALL PREACUTIONS IN PLACE. WILL CONTINUE TO MONITOR.
[2021-07-26 07:30] VITALS: BP 123/75
[2021-07-26 08:05] VITALS: BP 126/72
[2021-07-26 11:23] LABS: HEMOGLOBIN 8.8 gm/dL (12.0-15.0)
--- NOTE | 2021-07-26 15:13 | NUR ---
ASSUMED PT CARE THIS AM. PT A&OX3, ABLE TO MAKE NEEDS KNOWN. PATIENT REPORTING PAIN IN HER ABDOMEN, PAIN MEDICATION GIVEN WITH DECREASED PAIN NOTED. PATIENT HAS A SUPRAPUBIC CATHETER AND A ILEOSTOMY. NO BLEEDING NOTED, BLOOD THINNER HELD DUE TO RECENT BLEEDING YESTERDAY FROM ILEOSTOMY SITE. PATIENT HAS WEAKNESS NOTED TO LEFT SIDE. IV REMAINS PATENT, FLUIDS INFUSING. MEDICATIONS TAKEN WITHOUT ISSUE. PATIENT REMAINS ON ROOM AIR. FALL PRECAUTIONS ARE IN PLACE. PATIENT VEING REPOSITIONED Q2H.
[2021-07-26 16:30] VITALS: BP 101/58
[2021-07-26 20:34] VITALS: BP 112/57
--- NOTE | 2021-07-27 04:54 | NUR ---
RECEIVED CARE OF THIS PATIENT AT 1900. PATIENT ALERT AND ORIENTED X4. REMAINS ON BEDREST. INCISION ON ABD WITH D/I DRESSING. ILEOSTOMY RED PROTRUDING STOMA. APPLIANCE CHANGED. GREENISH COLORED LIQUID FROM STOMA. C/O PAIN MED, GIVEN. SLEPT MOST OF NIGHT.
[2021-07-27 05:01] LABS: HEMATOCRIT 22.8 % (37.0-47.0); HEMOGLOBIN 7.6 gm/dL (12.0-15.0); MCH 27.7 pg (26.0-34.0); MCHC 33.3 g/dL (28.0-37.0); RBC 2.74 mil/uL (4.20-5.00); RDW 14.2 % (10.5-14.5); WBC 10.2 thou/uL (4.0-11.0)
[2021-07-27 05:28] LABS: CREATININE 0.8 mg/dL (0.6-1.0); POTASSIUM 3.3 mmol/L (3.5-5.1)
[2021-07-27 08:30] VITALS: BP 119/71
--- NOTE | 2021-07-27 12:26 | NUR ---
CARE TEAM ARE WANTING PT ASSIST PT IN PUERSUEING SHORT TERM POST ACUTE CARE PLACEMENT. CM MET WITH PT AT BEDSIDE THIS DAY AND PROVIDED [facility] DUAL COMPLETE SNF LIST FOR REVIEW. PT ASKED ABOUT 5N. CM INFORMED HER THAT HER INSURANCE LIKELY WOULDN'T APPROVE ACUTE REHAB LEVEL OF CARE BUT THAT WE CAN TRY FOR SKILLED. PT WANTED TO BE ASSESSED FOR 5N. THERAPY ORDERED. 5N CONSULT ENTERED. CM ASKED PT TO PICK SKILLED BACKUPS. SHE MENTIONED [facility] ONCE SHE WOULD BE INTERESTED IN. CM FOLLOWING REGARDING DC PLANNING.
--- NOTE | 2021-07-27 15:45 | NUR ---
ASSUMED PT CARE AROUND 714. PT ALERT X ORIENTED X4. ON ROOM AIR.ACCUCHECKS X ACHS, LEFT SIDED WEAKNESS.IV RT/UA-MIDLINE WITH NS /100MLS/HR.HAS SUPRAPUBIC CATHTER AND A ILEOSTOMY BAG WITH DARK GREEN STOOL. C/O PAIN PARTIALLY CONTROLLED BY PAINMEDS. BED BATH GIVEN TODAY. FALL PRECAUTION IN PLACE. HOURLY ROUNDINGS DONE. WILL CONT TO MONITOR.
--- NOTE | 2021-07-27 16:06 | PATH ---
[facility] [place] [address] PATHOLOGY RPT PROCEDURE Name: KAILA CORONA [place] Room #: 455-P ADM IN M.R.#: [id number] Admission: 07/19/21 Date of : 63 Discharge: Report #: [id number] Path Case #: [id number] [facility] Accession Number: [id number] . 01 Material submitted: . colon - RIGHT SUBTOTAL COLECTOMY. Modifiers: right, SUBTOTAL . 01 Clinical history: . 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 . 02 Diagnosis: Small bowel and large intestine, subtotal colectomy: - Markedly dilated and attenuated bowel wall, history of colonic ileus and Neo's syndrome. - Reactive surface epithelium with scattered rare mild focal active colitis. - Scattered foci of congestion. - Ileocecal valve with no diagnostic abnormalities. - Margins of resection unremarkable and viable. - 5 reactive lymph nodes. . Omentum, omentectomy: - 45.5 cm of omentum showing scattered foci of fat necrosis and congestion. . (IUV:aura; 07/27/2021) MBR 07/27/2021 1244 Local . 02 Electronically signed: . Oma Miller MD, Pathologist NPI- [id number] . 01 Gross description: . The specimen is received fresh, labeled "Kaila Corona, subtotal colectomy". Received is a subtotal colectomy specimen consisting of a segment of small bowel measuring 4.5 cm in length by 1.8 cm in diameter contiguous with a segment of colon measuring 130 cm in length and ranges in diameter from 4.2-9.9 cm. Both margins are stapled closed. The serosal surface of the small bowel is pink-krishnamurthy and smooth in appearance. The serosal surface of the colon is pink-krishnamurthy to pink-swan in appearance with a slight amount of overlying adhesions. The attached pericolic fat measures up to 5.5 cm in thickness. There is a large amount of attached omentum measuring 45.5 x 10.5 x 2.2 cm. The specimen is opened along the antimesenteric line to reveal light swan mucosa with normal architectural folds within the small bowel. The ileocecal valve is pale swan and grossly [address] [address] PATHOLOGY RPT PROCEDURE Name: KAILA CORONA [place] Room #: 455-P [facility] IN M.R.#: [id number] Admission: 07/19/21 Date of : 63 Discharge: Report #: [id number] Path Case #: [id number] unremarkable. The colonic mucosa is light swan to dusky pink-krishnamurthy in appearance and predominately flat with minimal architectural folds. The appendix is absent. Sectioning through the omentum reveals bright yellow, lobulated cut surfaces with no grossly distinct nodules or lesions. Sectioning through the pericolic fat reveals five readily identifiable lymph nodes ranging in size from 0.3-0.6 cm in maximum dimensions. The specimen is submitted representatively as follows: . A1 proximal margin A2 distal margin A3 small bowel mucosa A4 ileocecal valve A5-A11 sales representative door to door sections of colonic mucosa A12 sales representative door to door sections of omentum A13 intact lymph nodes. (CAA; 07/26/2021) [facility] 07/26/2021 1006 Local . 02 Pathologist provided ICD-10: K52.9, K65.4 . 02 CPT . 583623, 090601 Specimen Comment: A courtesy copy of this report has been sent to [phone], [phone] Specimen Comment: [phone], Specimen Comment: Report sent to , DR RAPP / DR JEFFERSON Performed at: 01 [facility] [address] [facility] [address], [place] [id number] MD Jose Serrano MD Phone: [phone] Performed at: [address] [id number] MD Oma Miller MD Phone: [phone]
[2021-07-27 17:05] VITALS: BP 104/70
[2021-07-27 19:39] VITALS: BP 112/76
--- NOTE | 2021-07-28 03:30 | NUR ---
PT CARE ASSUMED WITH PT IN BED WATCHING TV.PT IS A/O X4.PT IS ON BEDREST.PT HAS LT SIDED WEAKNESS .PT C/O PAIN AND PAIN MANAGED WITH FENTANYL ,NORCO AND MORPHINE WITH PARTIAL RELIEF.PT HAS AN ILEOSTOMY WITH DARK GREEN LIQUID OUTPUT AND A SUPRAPUBIC CATHETER.PT C/O NAUSEA AND VOMITING AND ZOFRAN ADMINISTERED .PT IS ON CLEAR LIQUID DIET.PT IS ACCUCHECK ACHS.INCISION DRESSING AT MIDLINE C/I/D.WILL CONTINUE TO MONITOR PER POC
[2021-07-28 08:04] LABS: HEMATOCRIT 22.9 % (37.0-47.0); HEMOGLOBIN 7.5 gm/dL (12.0-15.0); MCH 26.8 pg (26.0-34.0); MCHC 32.9 g/dL (28.0-37.0); MCV 81.7 fL (80.0-100.0); RBC 2.8 mil/uL (4.20-5.00); RDW 14.5 % (10.5-14.5); WBC 10.6 thou/uL (4.0-11.0)
[2021-07-28 08:07] VITALS: BP 121/72
[2021-07-28 08:14] LABS: CALCIUM 7.9 mg/dL (8.5-10.1); CREATININE 0.7 mg/dL (0.6-1.0)
--- NOTE | 2021-07-28 13:25 | NUR ---
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 Pt assisted with tray setup.Tolerated full liq am meds.Piv infusing via midline. Fentanyl ivp given as ordered .Will continue to monitor.
--- NOTE | 2021-07-28 13:51 | NUR ---
5N CONSULT COMPLETED BY ISRAEL DUDLEY NP. Pt DOES NOT HAVE THE ENDURANCE FOR ACUTE REHAB AT THIS TIME. [facility] AT BASELINE. SNF RECOMMENDED FOR CONTINUED REHAB NEEDS TO DECREASE FAMILY/CAREGIVER BURDEN PRIOR TO RETURNING HOME. THANK YOU FOR THIS REFERRAL.
--- NOTE | 2021-07-28 15:16 | NUR ---
CM FOLLOWED UP WI PT THIS AFTERNOON. CM HAD FAXED REFERRAL TO [facility] THEY CAN'T ACCEPT. 5N ASSESSED AND INDICATED PT IS APPROPRIATE FOR SKILLED ACUTE REHAB LEVEL OF CARE. CM NOTIFIED PT OF THIS AND ASKED WHERE ELSE SHE WANTED REFERRALS SENT FOR REVIEW FOR POSSIBLE ADMISSION. SHE STATED [facility]. CM FAXED REFERRRAL FOR REVIEW FOR POSSIBLE ADMISSION. CM FOLLOWING REGARDING DC PLANNING.
[2021-07-28 20:02] VITALS: BP 141/82
--- NOTE | 2021-07-29 02:42 | NUR ---
PT CARE ASSUMED WITH PT IN BED WATCHING TV.PT IS A/O X4.PT IS ON BEDREST.PT IS ON ROOM AIR.PT HAS A SUPRAPUBIC CATHETER AND AN ILEOSTOMY WITH DARK GREEN LIQUID OUTPUT.V/S WNL.PAIN MANAGED WITH FENTANYL AND MORPHINE WITH PARTIAL RELIEF.PT HAD NAUSEA AND VOMITING AND PRN ZOFRAN GIVEN AND COMPAZINE ORDERED.PT REPOSITIONS Q2H AND PRN PER PT REQUEST FREQUENTLY TO BE TURNED OR MOVED.WILL CONTINUE TO MONITOR PER POC
[2021-07-29 07:07] LABS: HEMATOCRIT 25.8 % (37.0-47.0); HEMOGLOBIN 8.3 gm/dL (12.0-15.0); MCH 26.4 pg (26.0-34.0); MCHC 32.1 g/dL (28.0-37.0); MCV 82.2 fL (80.0-100.0); RBC 3.14 mil/uL (4.20-5.00); RDW 14.5 % (10.5-14.5); WBC 10.8 thou/uL (4.0-11.0)
[2021-07-29 07:12] LABS: CALCIUM 8.4 mg/dL (8.5-10.1); CREATININE 0.6 mg/dL (0.6-1.0)
[2021-07-29 08:33] VITALS: BP 136/73
[2021-07-29 10:21] LABS: POTASSIUM 2.9 mmol/L (3.5-5.1)
--- NOTE | 2021-07-29 15:00 | NUR ---
TODAY THIS PT HAS BEEN NSR ON THE HEART MONITOR WITH NO STATED PAIN FOR ME. HE HAS HAD HIS DRESSING CHANGED BY THE PHYSICIAN AND HE HAS OTHERWISE BEEN TOLERATING HIS MEDICATIONS WELL FLUIDS WELL. HE OTHERWISE AWAITS FOR THE NEXT PLAN.
--- NOTE | 2021-07-29 15:06 | NUR ---
TODAY THIS PT HAS HAD SOME STATED PAIN IN WHICH SHE HAS GOTTEN MEDICATION FOR. HER ILLEOSTOMY BAG HAS BEEN DRAINING WITH NO ISSUES AND SHE HAS OTHERWISE BEEN GETTING TURNED VERY FREQUENTLY OTHERWISE. HER POTASSIUM WAS 2.9 AND THE PHYSICIAN WAS CALLED AND NOW THE PROTOCOL HAS BEEN FOLLOWED SHE HAS OTHERWISE BEEN AWAITING FOR THE NEXT PLAN.
[2021-07-29 15:52] VITALS: BP 141/85
--- NOTE | 2021-07-29 16:31 | NUR ---
CM CALLED TIKA AT [facility] IN ADMISSIONS NUMEROUS TIME TODAY WITH NO RESPONSE. CM CALLED [facility] NO RESPONSE. CM FAXED REFERRAL TO [facility]. AWAITING AN ACCEPTING FACILITY AND THEN INSURANCE AUTH FOR POSSIBLE SKILLED REHAB SERVICES.
[2021-07-29 22:07] VITALS: BP 139/81
--- NOTE | 2021-07-30 01:29 | NUR ---
UPON SHIFT ASSESSMENT, PT AOX4 WITH INTERMITTENT FORGETFULNESS. PT REPORTS 8/10 PAIN IN RIGHT ABDOMEN AND LLE. PT RECEIVING SCHEDULED PO MORPHINE BID, PRN IV FENTANYL Q3HR WITH PRN PO NORCO Q6HR AVAILABLE. PT DENIES SOB WHILE ON ROOM AIR. REVIEWED PROVIDER PROGRESS NOTES, PER DR. CUMMINS PT DIET TO BE ADVANCED TOLERATED, DIET ORDER UPDATED TO CLEAR LIQUIDS. PT TOLERATING PO INTAKE OF FLUIDS AND CLEAR LIQUID DIET WITHOUT ISSUE. PT REPORTING INDIGESTION/REFLUX, REMAINS WITHOUT NAUSEA OR EMESIS. PT RECEIVING PRN IV ZOFRAN Q4HR WITH PRN IV COMPAZINE Q4HR AVAILABLE. PT VOIDING PER SUPRAPUBIC CATHETER AND ILEOSTOMY, BOTH REMAIN INTACT AND PATENT. PT NONAMBULATORY, FREQUENT REPOSITIONING ENCOURAGED WHILE IN BED, REPOSITIONING ASSISTANCE PROVIDED. PT REPORTS CHRONIC NUMBNESS AND TINGLING IN LEFT FOOT. CAPILLARY REFILL LESS THAN 3SEC, PERIPHERAL PULSES FAINT IN LLE, EASILY PALPABLE ELSEWHERE. PT ENCOURAGED TO NOTIFY STAFF FOR ALL NEEDS, CALL LIGHT WITHIN REACH, BED ALARM ON, BED LOCKED IN LOWEST POSITION, FREQUENT MONITORING WILL CONTINUE.
[2021-07-30 06:23] LABS: HEMATOCRIT 23.5 % (37.0-47.0); HEMOGLOBIN 7.9 gm/dL (12.0-15.0); MCH 27.3 pg (26.0-34.0); MCHC 33.7 g/dL (28.0-37.0); MCV 81.2 fL (80.0-100.0); RBC 2.89 mil/uL (4.20-5.00); RDW 14.2 % (10.5-14.5); WBC 10.4 thou/uL (4.0-11.0)
[2021-07-30 06:37] LABS: CALCIUM 8.2 mg/dL (8.5-10.1); CREATININE 0.7 mg/dL (0.6-1.0); POTASSIUM 3.1 mmol/L (3.5-5.1)
[2021-07-30 08:10] VITALS: BP 104/82
--- NOTE | 2021-07-30 15:51 | NUR ---
TODAY THIS PT HAS HAD SOME STATED PAIN IN WHICH SHE HAS RECIEVED MEDICATIONS FOR. SHE HAS BEEN TOLERATING HER FLUIDS WELL ORAL MEDICATIONS WELL. SHE HASN'T HAD ANY NAUSEA OR VOMITING THIS SHIFT. SHE HAS BEEN GETTING TURNED OFTEN IN THE BED AND EFFORTS HAVE BEEN MADE TO GET HER A AIR LOSS MATTRESS WELL. SHE OTHERWISE AWAITS FOR THE NEXT PLAN.
[2021-07-30 16:45] VITALS: BP 147/77
[2021-07-30 20:43] VITALS: BP 142/73
--- NOTE | 2021-07-31 04:14 | NUR ---
Pt. rested quietly at intervals during the night when checked on during frequent rounds. She was medicated for abdominal pain and nausea (see emar) with some relief noted. Ileostomy has been intact. She has been turned and repositioned.
[2021-07-31 07:48] VITALS: BP 157/80
[2021-07-31] MEDS ORDERED: IRON325 PO (14:48)
[2021-07-31] MEDS ORDERED: ENOXAPARIN40 MG/0.1 SUBQ (14:48)
[2021-07-31] MEDS ORDERED: MS CONTIN15 MG PO (14:49)
[2021-07-31] MEDS ORDERED: CALTRATE-600 W1 EACH PO (14:50)
[2021-07-31] MEDS ORDERED: VITAMIN B-12500 MC5 BUCCAL (14:54)
--- NOTE | 2021-07-31 15:09 | NUR ---
PER CASE MANAGEMENT, ALL TRANSPORT COMPANIES EXHAUSTED. NO TRANSPORT AVAILBILITY TO IGNITE TODAY. WILL ARRANGE FOR TRANSPORT TOMORROW.
--- NOTE | 2021-07-31 17:16 | NUR ---
TODAY THIS PT HAS BEEN GEARING UP FOR D/C. SHE HAS HAD SOME NAUSEA TODAY WELL PAIN IN WHICH SHE HAS RECIEVED MEDICATIONS FOR. SHE HAS OTHERWISE BEEN TOLERATING HER ANTIBIOTICS WELL AND AWAITING FOR TRANSPORT TO TAKE HER [facility].
[2021-07-31 19:47] VITALS: BP 136/70
--- NOTE | 2021-08-01 01:13 | NUR ---
UPON SHIFT REPORT, PT UNABLE TO DISCHARGE EXPECTED DUE TO LACK OF PROPER TRANSFER EQUIPMENT BY TRANSPORTATION COMPANY, DISCHARGE POSTPONED UNTIL 08.01.21. PT BELONGINGS GATHERED, MIDLINE DISCONTINUED ON , NO PERIPHERAL IV ACCESS. UPON SHIFT ASSESSMENT, PT AOX4, TEARFUL, AND ANXIOUS. THERAPEUTIC COMMUNICATION PROVIDED WITH EFFECT, PT MOOD NOTED TO BRIGHTEN. PT RECEIVING PRN PO ATIVAN Q8HR. PT REPORTS 9/10 ABDOMINAL PAIN. PT RECEIVING PRN PO NORCO Q4HR WITH PRN IV FENTANYL Q3HR AVAILABLE WHEN IV ROUTE OBTAINED. PT DENIES SOB WHILE ON ROOM AIR. PT TOLERATING PO INTAKE OF FLUIDS AND REGULAR DIET WITHOUT ISSUE. PT WITH INTERMITTENT NAUSEA WITHOUT EMESIS. PT RECEIVING PRN PO ZOFRAN Q4HR. SUPRAPUBIC CATHETER IN PLACE WITH YELLOW, SEDMINTED URINE. ILEOSTOMY IN PLACE WITH BROWNISH, YELLOW MIXED LIQUID AND SOLID OUTPUT. OSTOMY CARE PROVIDED, APPLIANCE CHANGED- STOMA RED WITH SCANT BLOOD NOTED. ABDOMINAL SURGICAL DRESSING IN PLACE WITH SCANT DRAINAGE NOTED, TRAVIS IN PLACE. PT MAINTAINS ON BEDREST, FREQUENT REPOSITIONING ENCOURAGED, REPOSITIONING ASSISTANCE PROVIDED. PT REPORTS CHRONIC NUMBNESS AND TINGLING IN LEFT FOOT. CAPILLARY REFILL LESS THAN 3SEC, PERIPHERAL PULSES FAINT IN LLE, PERIPHERAL PULSES PALPABLE ELSEWHERE. PT ENCOURAGED TO NOTIFY STAFF FOR ALL NEEDS, CALL LIGHT WITHIN REACH, BED ALARM ON, BED LOCKED IN LOWEST POSITION, FREQUENT MONITORING WILL CONTINUE.
[2021-08-01 07:31] LABS: ALBUMIN 2.2 g/dL (3.4-5.0); CALCIUM 8.1 mg/dL (8.5-10.1); CREATININE 0.6 mg/dL (0.6-1.0); MAGNESIUM 1.5 mg/dL (1.8-2.4); PHOSPHORUS 2.7 mg/dL (2.5-4.9); POTASSIUM 3.1 mmol/L (3.5-5.1); TOTAL BILIRUBIN 0.2 mg/dL (0.2-1.0); TOTAL PROTEIN 5.7 g/dL (6.4-8.2)
[2021-08-01 07:34] LABS: ABSOLUTE NEUTROPHILS 4.5 thou/uL (1.4-8.2); BASOPHILS 0.3 % (0.0-2.0); EOSINOPHILS 6.7 % (0.0-3.0); HEMATOCRIT 22.3 % (37.0-47.0); HEMOGLOBIN 7.3 gm/dL (12.0-15.0); LYMPHOCYTES 15.8 % (24.0-44.0); MCH 26.4 pg (26.0-34.0); MCHC 32.7 g/dL (28.0-37.0); MCV 80.8 fL (80.0-100.0); MONOCYTES 8.7 % (1.0-8.0); PLATELET COUNT 304 thou/uL (150-400); POLYS 68.5 % (36.0-66.0); RBC 2.76 mil/uL (4.20-5.00); RDW 14.2 % (10.5-14.5); WBC 6.6 thou/uL (4.0-11.0)
[2021-08-01] MEDS ORDERED: K-DUR 20 MEQ T20 MEQ PO (09:33)
[2021-08-01] MEDS ORDERED: LYRICA 75 MG CA75 MG PO (09:51)
[2021-08-01 09:58] VITALS: BP 145/55
--- NOTE | 2021-08-01 11:22 | NUR ---
ASSUMED CARE OF PT AT 0700. THROUGHOUT THE AM PT WAS CALM AND ONLY HAD COMPLAINTS OF MILD NAUSEA TREATED WITH PO ZOFRAN. NURSING STUDEN AND PRECEPTOR ADMINISTERED AM MEDS AND GOT PT CLEANED UP PRIOR TO FACILITY STAFF BRINGING STRETCHER TO TRANSFER. SIGNED DISCHARGE PAPERWORK AFTER EDUCATION AND GAVE CALVO COPY TO TRANSFER TEAM. ALL BELONGINGS SENT WITH PT.
--- NOTE | 2021-08-01 16:09 | NUR ---
PT TO DC TO [facility] THIS DAY. [facility] ARRAGNED FOR 10:30 THIS AM. CHART COPY MADE. ORDERS FAXED. PT AND FAMILY AWARE AND AGREEABLE. NURSE CALLED REPORT. NO OTHER CM INTERVENTION INDICATED. CASE CLOSED.
== END 2021-08-01 11:20 | DRG 330 ==
LOC: ER 19:57 → EROBS 23:56 → 4W 23:56 → EROBS 23:57 → 4W 07-20 16:04
PROVIDERS: Internal Medicine; Internal Medicine Gastroenterology; Nurse Practitioner Family; Physician Assistant; Surgery; ADMIT Hospitalist; ATTEND Hospitalist
PROC: 0D7N8ZZ Dilation of Sigmoid Colon, Via Natural or Artificial Opening Endoscopic (ICD-10-PCS; 2021-07-21)
PROC: 0D9L80Z Drainage of Transverse Colon with Drainage Device, Via Natural or Artificial Opening Endoscopic (ICD-10-PCS; 2021-07-21)
PROC: B54MZZA Ultrasonography of Right Upper Extremity Veins, Guidance (ICD-10-PCS; principal; 2021-07-22)
PROC: 05HY33Z Insertion of Infusion Device into Upper Vein, Percutaneous Approach (ICD-10-PCS; principal; 2021-07-22)
PROC: 0DJD4ZZ Inspection of Lower Intestinal Tract, Percutaneous Endoscopic Approach (ICD-10-PCS; 2021-07-25)
PROC: 0DTF0ZZ Resection of Right Large Intestine, Open Approach (ICD-10-PCS; 2021-07-25)
PROC: 0D1B0Z4 Bypass Ileum to Cutaneous, Open Approach (ICD-10-PCS; 2021-07-25)
DX: K59.81 Ogilvie syndrome (principal); K56.609 Unspecified intestinal obstruction, unspecified as to partial versus complete obstruction; I69.354 Hemiplegia and hemiparesis following cerebral infarction affecting left non-dominant side; Z68.44 Body mass index [BMI] 60.0-69.9, adult; K56.7 Ileus, unspecified; D62 Acute posthemorrhagic anemia; E66.01 Morbid (severe) obesity due to excess calories; E11.9 Type 2 diabetes mellitus without complications; M17.0 Bilateral primary osteoarthritis of knee; F31.9 Bipolar disorder, unspecified; F41.9 Anxiety disorder, unspecified; N31.9 Neuromuscular dysfunction of bladder, unspecified; T40.605A Adverse effect of unspecified narcotics, initial encounter; R53.81 Other malaise; E87.6 Hypokalemia; K21.9 Gastro-esophageal reflux disease without esophagitis; I10 Essential (primary) hypertension; E55.9 Vitamin D deficiency, unspecified; M79.2 Neuralgia and neuritis, unspecified; K59.09 Other constipation; R20.0 Anesthesia of skin; E78.5 Hyperlipidemia, unspecified; G89.4 Chronic pain syndrome; Z20.822 Contact with and (suspected) exposure to COVID-19; Z71.3 Dietary counseling and surveillance; Z79.891 Long term (current) use of opiate analgesic; Z87.440 Personal history of urinary (tract) infections; Z79.899 Other long term (current) drug therapy; Z80.0 Family history of malignant neoplasm of digestive organs; Y92.89 Other specified places as the place of occurrence of the external cause
CPT/HCPCS: 10040; 27000; 50010; 50093; 50101; 50386; 50555; 51412; 51489; 51708; 52265; 52266; 53307; 53314; 56462; 56525; 56526; 56527; 56528; 57092; 57103; 58574; 58586; 62110; 62900; 65130; 70005

== ENCOUNTER 2021-09-30 07:52 | Emergency (ER) | payer OTHER ==
[~2021-09-30] VITALS: Ht 162.6 cm; Wt 147.4 kg
--- NOTE | ~2021-09-30 | EMS ---
[address] [address] EMS Patient Care Report Name: KAILA CORONA Room #: REG Jeanette#: [id number] Admission: 09/30/21 Attend Phys: Discharge: Date of : 63 Report #: [id number] THIS REPORT FOR: //name// Report Transmitted: 09/30/2021 08:30 EMS Care Summary [facility] Incident [id number] @ 09/30/2021 07:05 Incident Location [address] [place] [address] Patient KAILA CORONA Female, 55 Years 1965 Patient Address [address] [place] [address] Patient History None Reported, Patient Allergies No known allergies, Patient Medications Zofran, Chief Complaint nausea/vomiting Disposition Transported No Lights/Roy Dispatch Reason Sick Person Transported To [facility] Narrative S52 dispatched on a sick at a local residence. On EMS arrival, the pt was laying semi-fowlers in a hospital bed in the front room. Pt stated that she had been feeling nauseous and vomiting for "a couple days". Pt stated that she feels nauseous during the day but is able to keep food and water down, then at [address] [address] EMS Patient Care Report Name: KAILA CORONA Room #: REG PITER Reid#: [id number] Admission: 09/30/21 Attend Phys: Discharge: Date of : 63 Report #: [id number] night she starts vomiting. Pt stated that she had been taking her prescribed Zofran with no relief. Pt was loaded onto using Marcel-Sewing Machine Maintenance Mechanic and then placed into position of comfort. Pt was secured to cot using straps provided and then secured into ambulance. Vitals and assessments obtained. Oral Zofran given. Pt was continually reassessed during transport. At receiving facility, pt care was transferred to nursing staff with verbal report given. RTS Cristóbal Sánchez, NRP Initial Vitals @07:15P: 88,R: 18,BP: 133/102,GCS: 15,SpO2: 96,Revised Trauma: 12, @07:28P: 87,R: 18,BP: 133/94,Pain: 0/10,GCS: 15,SpO2: 93,Revised Trauma: 12, Impression Nausea Procedures @07:13 ALS AssessmentSucceeded @07:26 3-Lead ECG Response: UnchangedSucceeded @07:34 IV Therapy - cc () @07:28 Zofran - 4 Milligrams (mg) - Intramuscular (IM) Response: Unchanged Timeline 07:03,Call Received 07:03,Psap Call 07:05,Dispatched 07:08,En Route 07:12,Initial Responder On Scene 07:12,On Scene 07:12,At Patient 07:13,ALS Assessment,Succeeded, 07:15,BP: 133/102 M,PULSE: 88,RR: 18 R,SPO2: 96 Ox,ETCO2: ,BG: ,PAIN: ,GCS: 15, 07:26,3-Lead ECG,Response: UnchangedSucceeded, 07:28,BP: 133/94 M,PULSE: 87,RR: 18 R,SPO2: 93 Ox,ETCO2: ,BG: ,PAIN: 0,GCS: 15, 07:28,Zofran - 4 Milligrams (mg) - Intramuscular (IM),Response: Unchanged 07:29,Depart Scene 07:34,IV Therapy - cc Site: , 07:47,At Destination 08:20,Call Closed Disclaimer v1.1 Copyright 2020 [employer] This EMS Care Summary contains data elements from the applicable legal record (which may be displayed differently). It is designed to provide pertinent [address] [address] EMS Patient Care Report Name: KAILA CORONA [place] Room #: REG Jeanette#: [id number] Admission: 09/30/21 Attend Phys: Discharge: Date of : 63 Report #: [id number] information for the following purposes: continuity of care, clinical quality, and state data reporting. The complete legal record is available to ED staff and administrators of the receiving hospital in [facility]'s Patient Tracker. All data is provided "as is."
[~2021-09-30 07:52] MED LIST changes: +CALTRATE-600 W1 EACH PO; +ENOXAPARIN40 MG/0.1 SUBQ; +IRON325 PO; +LYRICA 75 MG CA75 MG PO; +MS CONTIN15 MG PO; +VITAMIN B-12500 MC5 BUCCAL
[2021-09-30 09:06] LABS: ABSOLUTE NEUTROPHILS 3.9 thou/uL (1.4-8.2); BASOPHILS 0.5 % (0.0-2.0); EOSINOPHILS 2.9 % (0.0-3.0); HEMATOCRIT 37.7 % (37.0-47.0); HEMOGLOBIN 12.1 gm/dL (12.0-15.0); LYMPHOCYTES 27.4 % (24.0-44.0); MCH 25.5 pg (26.0-34.0); MCHC 32.2 g/dL (28.0-37.0); MCV 79.2 fL (80.0-100.0); MONOCYTES 8.9 % (1.0-8.0); PLATELET COUNT 267 thou/uL (150-400); POLYS 60.3 % (36.0-66.0); RBC 4.76 mil/uL (4.20-5.00); RDW 14.5 % (10.5-14.5); WBC 6.4 thou/uL (4.0-11.0)
[2021-09-30 09:20] LABS: CALCIUM 9.8 mg/dL (8.5-10.1); CREATININE 1.3 mg/dL (0.6-1.0); POTASSIUM 4.5 mmol/L (3.5-5.1)
[2021-09-30 09:27] LABS: ALBUMIN 3.9 g/dL (3.4-5.0); TOTAL BILIRUBIN 0.2 mg/dL (0.2-1.0); TOTAL PROTEIN 8.1 g/dL (6.4-8.2)
[2021-09-30 09:57] LABS: URINE BILIRUBIN NEGATIVE (Negative); URINE BLOOD 1+ (Negative); URINE CLARITY CLEAR; URINE COLOR YELLOW; URINE GLUCOSE-RANDOM* NEGATIVE (Negative); URINE KETONES NEGATIVE (Negative); URINE PROTEIN (DIPSTICK) 1+ (Negative); URINE SPECIFIC GRAVITY 1.025 (1.005-1.035); URINE UROBILINOGEN 0.2 E.U./dl (0.2-1.0)
[2021-09-30 09:58] LABS: URINE LEUKOCYTES-REFLEX 1+ (Negative); URINE NITRITE-REFLEX POSITIVE (Negative)
[2021-09-30 10:31] LABS: CASTS None Seen /LPF (None Seen); SQUAMOUS 0-3 Few /LPF (0-3)
[2021-09-30 10:32] LABS: CRYSTALS None Seen /LPF (None Seen); URINE RBC 1-2 Rare /HPF (NONE SEEN); URINE WBC-REFLEX 0-5 Rare /HPF (0-5)
[2021-09-30] MEDS ORDERED: COMPAZINE10 MG PO (12:44)
--- NOTE | 2021-09-30 13:25 | NUR ---
CM consult to set up transport from home to the office of Dr. Jones on 10-03-21 at 1500. [facility] Confirmed: car pick up driver at 2:00 PM with Wheelchair to: [address] [place] [address] and patient phone number of [phone] Patient will then be transported to: Dr Amy Jones [facility] [address] [place] [address] [facility] will return after appointment and return patient to her home address
[2021-09-30 17:17] VITALS: BP 113/81
--- NOTE | 2021-10-03 07:31 | EKG ---
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
[2021-10-04] MEDS ORDERED: CIPROFLOXACIN500 M1 PO (09:19)
[2021-10-04] MEDS ORDERED: PYRIDIUM100 M1 PO (09:19)
[2021-10-04] MEDS ORDERED: MACROBID 100 M100 M1 PO (09:19)
== END 2021-09-30 17:17 | disposition home or self-care (01) ==
LOC: ER 07:52
PROVIDERS: Emergency Medicine
DX: E86.0 Dehydration (principal); R11.2 Nausea with vomiting, unspecified; E11.9 Type 2 diabetes mellitus without complications; I10 Essential (primary) hypertension; E78.5 Hyperlipidemia, unspecified; F41.9 Anxiety disorder, unspecified; E66.01 Morbid (severe) obesity due to excess calories; Z79.4 Long term (current) use of insulin; Z79.899 Other long term (current) drug therapy

== ENCOUNTER 2021-10-10 16:51 | Emergency (ER) | payer OTHER ==
[~2021-10-10] VITALS: Ht 162.6 cm; Wt 147.4 kg
--- NOTE | ~2021-10-10 | EMS ---
[facility] [address] [place] [address] EMS Patient Care Report Name: KAILA CORONA Room #: MONAE Reid#: [id number] Admission: 10/10/21 Attend Phys: Discharge: Date of : 63 Report #: [id number] THIS REPORT FOR: //name// Report Transmitted: 10/10/2021 18:40 EMS Care Summary [facility] Incident [id number] @ 10/10/2021 16:14 Incident Location [address] [place] [address] Patient KAILA CORONA Female, 55 Years 1965 Patient Address [address] [place] [address] Patient History None Reported, Patient Allergies No known allergies, Patient Medications Zofran, Chief Complaint diarrhea Disposition Transported No Lights/Xenia Dispatch Reason Sick Person Transported To [facility] Narrative squad 52 was dispatched to a call for a sick person CC: diarrhea [facility] [address] [place] [address] EMS Patient Care Report Name: KAILA CORONA [place] Room #: MONAE PearsonR.#: [id number] Admission: 10/10/21 Attend Phys: Discharge: Date of : 63 Report #: [id number] history of event. pt had a history of a colonoscopy's bag placed in aug and it is no longer function correctly. and she has been having uncontrollable diarrhea the past day upon arrival pt was found AOX4 gcs 15 with a patent airway and normal respirations with clear lung sounds and equal chest rise and fall. skin was pink warm and dry with strong radial pulses. eyes were perrl and there were no signs of slurred speech facial droop or arm drift. pt had complaints of diarrhea that should not be present after her colonoscopy bag was placed in August .no other dcapbtls were found and pt had no other new complaints. pt was provided supportive care and continuous monitoring pt was transport to the closest appropriate available facility and pt care was taken over by nursing staff Initial Vitals @16:41P: 85,R: 15,BP: 128/88,Pain: 2/10,GCS: 15,SpO2: 98,Revised Trauma: 12, @16:29P: 91,R: 15,BP: 111/76,Pain: 2/10,GCS: 15,Glucose: 234,SpO2: 97,Revised Trauma: 12, Impression Abdominal Pain Procedures @16:30 ALS Assessment Response: UnchangedSucceeded @17:15 3-Lead ECG Response: UnchangedSucceeded Timeline 16:12,Call Received 16:12,Psap Call 16:14,Dispatched 16:16,En Route 16:18,Initial Responder On Scene 16:18,On Scene 16:20,At Patient 16:28,Depart Scene 16:29,BP: 111/76 M,PULSE: 91,RR: 15 R,SPO2: 97 Ox,ETCO2: ,B,PAIN: 2,GCS: 15, 16:30,ALS Assessment,Response: UnchangedSucceeded, 16:41,BP: 128/88 M,PULSE: 85,RR: 15 R,SPO2: 98 Ox,ETCO2: ,BG: ,PAIN: 2,GCS: 15, 16:46,At Destination 17:15,3-Lead ECG,Response: UnchangedSucceeded, 17:25,Call Closed [facility] [address] [place] [address] EMS Patient Care Report Name: KAILA CORONA [place] Room #: REG Jeanette#: [id number] Admission: 10/10/21 Attend Phys: Discharge: Date of : 63 Report #: [id number] Disclaimer v1.1 Copyright 2020 [employer] This EMS Care Summary contains data elements from the applicable legal record (which may be displayed differently). It is designed to provide pertinent information for the following purposes: continuity of care, clinical quality, and state data reporting. The complete legal record is available to ED staff and administrators of the receiving hospital in [employer]'s Patient Tracker. All data is provided "as is."
[~2021-10-10 16:51] MED LIST changes: +CIPROFLOXACIN500 M1 PO; +COMPAZINE10 MG PO; +PYRIDIUM100 M1 PO
[2021-10-10 18:02] LABS: BASOPHILS 0.9 % (0.0-2.0); EOSINOPHILS 3.1 % (0.0-3.0); HEMATOCRIT 34.4 % (37.0-47.0); HEMOGLOBIN 11.3 gm/dL (12.0-15.0); LYMPHOCYTES 25.9 % (24.0-44.0); MCH 25.7 pg (26.0-34.0); MCHC 32.7 g/dL (28.0-37.0); MCV 78.5 fL (80.0-100.0); PLATELET COUNT 184 thou/uL (150-400); POLYS 61.1 % (36.0-66.0); RBC 4.38 mil/uL (4.20-5.00); RDW 14.3 % (10.5-14.5); WBC 6.6 thou/uL (4.0-11.0)
[2021-10-10 18:11] LABS: CALCIUM 9.3 mg/dL (8.5-10.1); CREATININE 1.2 mg/dL (0.6-1.0); POTASSIUM 3.5 mmol/L (3.5-5.1)
[2021-10-10] MEDS ORDERED: FLAGYL375 MG PO (20:51)
[2021-10-10] MEDS ORDERED: AUGMENTIN 875-1 EACH PO (20:51)
[2021-10-10 22:52] VITALS: BP 165/71
== END 2021-10-10 22:53 | disposition home or self-care (01) ==
LOC: ER 16:51
PROVIDERS: Emergency Medicine
DX: R11.2 Nausea with vomiting, unspecified (principal); R19.7 Diarrhea, unspecified; E11.9 Type 2 diabetes mellitus without complications; F31.9 Bipolar disorder, unspecified; I10 Essential (primary) hypertension; E78.5 Hyperlipidemia, unspecified; F41.9 Anxiety disorder, unspecified; E66.9 Obesity, unspecified; Z98.890 Other specified postprocedural states; Z86.73 Personal history of transient ischemic attack (TIA), and cerebral infarction without residual deficits; Z68.43 Body mass index [BMI] 50.0-59.9, adult; Z79.4 Long term (current) use of insulin; Z79.891 Long term (current) use of opiate analgesic; Z79.899 Other long term (current) drug therapy; Z79.1 Long term (current) use of non-steroidal anti-inflammatories (NSAID)

== ENCOUNTER 2021-12-30 15:58 | Inpatient (IN) | payer OTHER ==
[~2021-12-30] VITALS: Ht 165.1 cm; Wt 128.8 kg
--- NOTE | ~2021-12-30 | EMS ---
[place] [address] EMS Patient Care Report Name: KAILA CORONA Room #: 438-P ADM IN M.R.#: [id number] Admission: 12/30/21 Attend Phys: Narinder Allen MD Discharge: Date of : 63 Report #: [id number] THIS REPORT FOR: //name// Report Transmitted: 01/02/2022 13:25 EMS Care Summary [place] [place] Incident [id number] @ 12/30/2021 15:15 Incident Location [address] [place] [address] Patient KAILA CORONA Female, 56 Years 1965 Patient Address [facility] [address] [place] [address] Patient History Diabetes,Hypertension (HTN),Urinary Tract Infection (UTI),Hyperglycemia, Patient Allergies No known allergies, Patient Medications Amlodipine, Lyrica, Quetiapine, Alprazolam, Insulin, Atorvastatin, Chief Complaint UTI Disposition Transported No Lights/Dix Dispatch Reason Sick Person Transported To [facility] Narrative PT FOUND LYING SUPINE ON BED IN BEDROOM OF HER HOME. PT STATES THAT HER HOME HEALTH NURSE TOOK A URINE SAMPLE A FEW DAYS AGO AND TODAY HER DOCTOR CALLED HER AND TOLD HER SHE HAS A UTI AND NEEDS IV ANTIBIOTICS. PT IS NON AMBULATORY PER HER BASELINE. PT PLACED ON MEGAMOVER NOTED. PT HAS NO VISIBLE [place] [address] EMS Patient Care Report Name: KAILA CORONA [place] Room #: 438-P ADM IN M.R.#: [id number] Admission: 12/30/21 Attend Phys: Narinder Allen MD Discharge: Date of : 63 Report #: [id number] NO COMPLAINTS OF SOB, CP OR TRAUMA. NO CHANGES NOTED ENROUTE. Initial Vitals @15:41P: 96,R: 16,BP: 108/60,Pain: 0/10,GCS: 15,SpO2: 96,Revised Trauma: 12, Assessments @15:31MENTAL:No Abnormalities,SKIN:No Abnormalities,HEENT:Head/Face: No Abnormalities,LUNG SOUNDS:General: No Abnormalities,ABDOMEN:General: No Abnormalities,PELVIS//GI:No Abnormalities,EXTREMITIES:PULSE:NEURO:No Abnormalities, Impression Urinary Tract Infection (UTI) Procedures @15:31 ALS Assessment Response: UnchangedSucceeded @15:35 General Comments Response: Unchanged @15:37 Stretcher Response: Unchanged Timeline 15:13,Call Received 15:13,Dispatch Notified 15:15,Dispatched 15:15,En Route 15:29,On Scene 15:31,At Patient 15:31,ALS Assessment,Response: UnchangedSucceeded, 15:35,General Comments,Response: Unchanged 15:37,Stretcher,Response: Unchanged 15:39,Depart Scene 15:41,BP: 108/60 M,PULSE: 96,RR: 16 R,SPO2: 96 Ox,ETCO2: ,BG: ,PAIN: 0,GCS: 15, 15:54,At Destination 16:01,Call Closed Disclaimer v1.1 Copyright 2021 [employer] This EMS Care Summary contains data elements from the applicable legal record (which may be displayed differently). It is designed to provide pertinent information for the following purposes: continuity of care, clinical quality, and state data reporting. The complete legal record is available to ED staff and administrators of the receiving hospital in [employer]'s Patient Tracker. All data is provided "as is."
[~2021-12-30 15:58] MED LIST changes: +AUGMENTIN 875-1 EACH PO; +FLAGYL375 MG PO
[2021-12-30 15:59] VITALS: BP 133/82
[2021-12-30 16:36] LABS: ABSOLUTE NEUTROPHILS 6.9 thou/uL (1.4-8.2); BASOPHILS 0.4 % (0.0-2.0); EOSINOPHILS 1.1 % (0.0-3.0); HEMATOCRIT 38.1 % (37.0-47.0); HEMOGLOBIN 12.3 gm/dL (12.0-15.0); LYMPHOCYTES 17.2 % (24.0-44.0); MCH 26.3 pg (26.0-34.0); MCHC 32.4 g/dL (28.0-37.0); MCV 81.3 fL (80.0-100.0); MONOCYTES 5.6 % (1.0-8.0); PLATELET COUNT 316 thou/uL (150-400); POLYS 75.7 % (36.0-66.0); RBC 4.68 mil/uL (4.20-5.00); RDW 14.6 % (10.5-14.5); WBC 9.1 thou/uL (4.0-11.0)
[2021-12-30 16:57] LABS: CALCIUM 11.1 mg/dL (8.5-10.1); CREATININE 1.3 mg/dL (0.6-1.0); POTASSIUM 4.7 mmol/L (3.5-5.1)
[2021-12-30 17:06] LABS: ALBUMIN 3.6 g/dL (3.4-5.0); TOTAL BILIRUBIN 0.6 mg/dL (0.2-1.0); TOTAL PROTEIN 8.5 g/dL (6.4-8.2)
[2021-12-30 17:24] LABS: URINE BLOOD 1+ (Negative); URINE CLARITY CLOUDY; URINE COLOR ORANGE; URINE GLUCOSE-RANDOM* TRACE (Negative); URINE KETONES NEGATIVE (Negative); URINE PROTEIN (DIPSTICK) 2+ (Negative); URINE SPECIFIC GRAVITY 1.025 (1.005-1.035)
[2021-12-30 17:28] LABS: ICTOTEST (BILI CONFIRMATORY) Negative (Negative); URINE BILIRUBIN NEGATIVE (Negative); URINE LEUKOCYTES-REFLEX 3+ (Negative); URINE NITRITE-REFLEX POSITIVE (Negative)
[2021-12-30 17:48] LABS: HYALINE CASTS 0-3 Few /LPF (None Seen); SQUAMOUS 0-3 Few /LPF (0-3); URINE WBC-REFLEX >25 Many /HPF (0-5)
[2021-12-30 17:49] LABS: CRYSTALS None Seen /LPF (None Seen); URINE RBC None Seen /HPF (NONE SEEN)
--- NOTE | 2021-12-30 18:06 | NUR ---
VAT CONSULTED FOR PIV, VESSELS TOO DEEP. PT HAS HAD PREVIOUS MIDLINES, VERBALIZED UNDERSTANDING OF RISK AND BENEFITS. DAVID BASILIC WIDELY PATENT WITH USG. 4FR POWER ML TRIMMED TO 14CM INSERTED TO 0CM WITH BRISK BR. PT TOLERATED WELL. RELEASED FOR IMMEDIATE USE PER PROTOCOL TO SHELDON CABAN
[2021-12-30 19:49] VITALS: BP 146/97
--- NOTE | 2021-12-30 21:55 | NUR ---
REPORT ATTEMPTED X2 TO FLOOR, HANDOFF REPORT FAXED AT 5769, SOFTWARE DEVELOPMENT COORDINATOR, CHRIS STATED IT WAS OK TO SEND PT UP.
[2021-12-30 21:58] VITALS: BP 146/97
[2021-12-30 22:29] VITALS: BP 135/75
[2021-12-30] MEDS ORDERED: PREGABALIN50 MG PO ×2 (23:47)
[2021-12-31 07:15] VITALS: BP 147/60
[2021-12-31 08:14] LABS: HEMATOCRIT 34.7 % (37.0-47.0); HEMOGLOBIN 11.1 gm/dL (12.0-15.0); MCH 26.1 pg (26.0-34.0); MCHC 32.1 g/dL (28.0-37.0); MCV 81.3 fL (80.0-100.0); RBC 4.26 mil/uL (4.20-5.00); RDW 15.1 % (10.5-14.5); WBC 9.4 thou/uL (4.0-11.0)
[2021-12-31 08:23] LABS: CALCIUM 10.6 mg/dL (8.5-10.1); CREATININE 1.2 mg/dL (0.6-1.0); POTASSIUM 3.9 mmol/L (3.5-5.1)
[2021-12-31 12:00] VITALS: BP 126/77
--- NOTE | 2021-12-31 12:04 | NUR ---
PLEASE REFER TO OT VARIANCE4
--- NOTE | 2021-12-31 15:48 | NUR ---
Patient is A&Ox4 appearing anxious upon assessment. Patient voicing pain 10/10 and refused tylenol. Provider restarted ER morphine. Patient voiced still no relief. Wound to R Buttock taken with hospital phone as camera is not functioning. Wound care consulted; Z guard and barrier cream applied to area. Patient being repositioned at least every 2 hrs. IV ABX and fluids infusing on R upper arm midline with no issues. Colostomy bag changed & suprapubic catheter care complete. AC/HS insulin administered as needed. Fall precautions in place.
[2021-12-31 16:45] VITALS: BP 126/77
[2021-12-31 20:00] VITALS: BP 113/71
--- NOTE | 2022-01-01 04:24 | NUR ---
PT WAS OBSERVED LYING ON HER BED WATCHING TV AT SHIFT CHANGE.PT C/O PAIN TO HER L SIDE AND BUTTOCKS,MED GIVEN,PT REPOSITIONED PER HER REQUEST.BARRIER CREAM APPLIED TO THE WOUND ON HER COCCYX.PT CONT ON IVF AND IV ABX.PT SLEEPING ON HER BED AT THIS TIME.CALL LIGHT WITHIN REACH.
[2022-01-01 08:05] VITALS: BP 97/66
--- NOTE | 2022-01-01 09:57 | NUR ---
ASSUMED CARE OVER PATIENT THIS AM. PATIENTS ONLY COMPLAINT WAS THAT HER BOTTOM WAS ITHCHING AND WAS BURNING AND SHE THOUGHT THAT MAYBE SHE NEEDED THE CREAM REAPPLIED. REPOSITIONED PATIENT TO THE LEFT SIDE 2X MAX ASSIST. MIDLINE IN WORKING CONDITION. WILL CONTINUE TO MONITOR AND UPDATE NOTE NEEDED.
--- NOTE | 2022-01-01 13:05 | HC ---
[facility] [place] [address] CONSULTATION Name: KAILA CORONA DUNDALK Room #: 438-P ADM IN M.R.#: [id number] Admission: 12/30/21 Attend Phys: Narinder Allen MD Discharge: Date of : 63 Report #: [id number] THIS REPORT FOR: cc: Angel Garces,Ti Hooper MD ~ DATE OF SERVICE: 12/31/2021 REASON FOR CONSULTATION: Gluteal pressure sore in a patient with immobility secondary to cerebrovascular accident and morbid obesity, admitted for urinary tract infection. HISTORY OF PRESENT ILLNESS: The patient is a 56-year-old woman with chronic immobility secondary to cerebrovascular accident and left-sided hemiparesis. She suffers from morbid obesity and has a colostomy. She has neurogenic bladder with suprapubic catheter insertion, diabetes mellitus type 2. I am consulted due to pressure sores buttock. PAST MEDICAL HISTORY: Cerebrovascular accident with left hemiparesis, morbid obesity, bipolar disorder, anxiety and depression, status post colostomy, diabetes mellitus type 2, hypertension, neurogenic bladder with suprapubic catheter. PAST SURGICAL HISTORY: Colectomy with colostomy, suprapubic catheter, right leg fracture and repair, section. SOCIAL HISTORY: Denies smoking, alcohol or tobacco. ALLERGIES: None. LABORATORY DATA: Albumin 3.6. White blood count 9.1. MEDICATIONS: Compazine, diclofenac, magnesium, Pyridium, Cipro, Augmentin, Flagyl, Lovenox, Caltrate, Lantus insulin, Xanax. She is currently on IV Zosyn. PHYSICAL EXAMINATION: GENERAL: Shows an alert, pleasant, conversant morbidly obese woman who is a good historian. HEENT: Mucous membranes are moist. NECK: Supple. LUNGS: Respirations unlabored. ABDOMEN: Morbidly obese, with well-healed surgical incisions. She has a functioning colostomy in the right lower abdomen, suprapubic catheter is present. Examination of the patient's back reveals 3 x 3 cm area of scattered superficial stage 2 pressure ulceration of the left buttock. This was treated with heavy barrier cream. No other ulcers were seen. [facility] [address] [place] [address] CONSULTATION Name: KAILA CORONA DUNDALK Room #: 438-P ADM IN M.R.#: [id number] Admission: 12/30/21 Attend Phys: Narinder Allen MD Discharge: Date of : 63 Report #: [id number] EXTREMITIES: No lower extremity wounds seen. IMPRESSION: 1. Morbid obesity. 2. Diabetes mellitus type 2 with skin ulcer. 3. Chronic immobility secondary to cerebrovascular accident. 4. Admitted for urinary tract infection and IV antibiotics. . 5. Colostomy status. 4. Neurogenic bladder, suprapubic catheter. 5. Stage II left gluteal pressure sore, treat with barrier cream twice daily repositioning. Wound care team will follow. <ELECTRONICALLY SIGNED> By: Ti Pinedo MD 01/01/22 [id number] Ti Pinedo MD /itzel
[2022-01-01 15:44] VITALS: BP 83/45
[2022-01-01 20:24] VITALS: BP 83/43
--- NOTE | 2022-01-02 04:34 | NUR ---
PT HAS ALOT OF ANXIETY. AT ONE TIME SHE STATED " I GIVE UP"SHE IS FRUSTRATED ABOUT THE THE POSSIBILITY OF GOING TO A RESIDENTIAL.ANXIETY MEDS GIVEN. PT C/O BUTTOCK PAIN, REPOSITIONING PROVIDED AND BARRIER CREAM APPLIED.PT ALSO C/O LEFT SIDED PAIN, DICLOFENAC CREAM APPLIED TO SORE LEFT SHOULDER AND LLE. SP CATH WITH DARK COLORED U/O.SR ON TELEMETRY, SHE KEEPS TAKING THE TELE SCOUT LEADS OFF.COLOSTOMY CHANGED TWICE TONIGHT.LEFT SIDED HEMIPARESIS.Q2HR TURN PROVIDED.CALLS FREQUENTLY WITH NEEDS.
[2022-01-02 08:34] VITALS: BP 103/59
--- NOTE | 2022-01-02 12:04 | NUR ---
A/O X 4 FLAT AFFECT, ROOM AIR, LEFT SIDE WEAKNESS PAST CVA, RIGTH UPPER ARM MIDLINE NS @ 125 MLS/HR, RLQ COLOSTOMY, SUPRAPUBIC FRANCO-UA SENT DOWN TO LAB, RED BUTTOCKS -Z GUARD APPILED, SR TELE, AC HS, LEFT SHOULDER AND LEFT LEG PAIN
[2022-01-02 12:25] VITALS: BP 122/67
--- NOTE | 2022-01-02 13:12 | NUR ---
Assess due to high nutrition screen risk for unintentional wt loss and decreased intake prior admit. Pt admit with urosepsis. Complicated hx, olgivie syndrome, s/p subtotal colectomy, cva, bipolar, DM, obesity. Also has stage II pressure ulcer to left buttocks indicated.Pt has lost ~55 lb since 07/2021 when previously hospitalized. Now eating 100% all meals. Attempted to interview and pt kept falling asleep and only shaking head yes/no. Current wt 283 lb, BMI 47 with extreme class III obesity. Presents low nutrition risk since eating very well.
[2022-01-02 16:00] VITALS: BP 125/60
[2022-01-02 20:56] VITALS: BP 101/61
--- NOTE | 2022-01-03 04:28 | NUR ---
PT REPOSITIONED. BARRIER CRM APPLIED TO BOTTOM.PT GIVEN HS MEDS WITH START OF SROQUEL. SHE SEEMS TO HAVE SLEPT BETTER TONIGHT. ORAL PAIN MEDS WORKING FOT THE LEFT SHOULDER AND LEFT LEG PAIN. CALLS WITH NEEDS.
[2022-01-03 07:34] VITALS: BP 129/55
[2022-01-03 10:47] VITALS: BP 122/61
--- NOTE | 2022-01-03 13:34 | NUR ---
met with patient who admits with UTI. Patient paraplegic. SHe lives at home with family. She has wc, cyndee lift, and hosp bed at home. She has home based community services 4 hours a day 7 days a week. She rec HH from [facility] in past and agreeable to use again. Discussed post acute care and possible need for antibiotics. Patient reports she cannot do IV at home or outpatient infusion. "to scared" reviewed possible skilled care for antibiotics. Patient reviewing [facility] list of skilled facilities. She has been at [facility] in past but does not appear she wants to return. Casemgt following
--- NOTE | 2022-01-03 13:52 | NUR ---
ASSUMED CARE OF PATIENT THIS AM. ONLY COMPLAINT IS ON THE LEFT SIDE WHICH IS CHRONIC PAIN. NO N/V AND PATIENT TOLERATING PO INTAKE. COLOSTOMY BAG INTAKE AND WORKING, MIDLINE INTAKE AND WORKING. WILL CONTINUE TO MONITOR AND UPDATE NOTE NEEDED.
[2022-01-03 15:55] VITALS: BP 122/58
[2022-01-03 20:15] VITALS: BP 129/69
--- NOTE | 2022-01-04 03:41 | NUR ---
ASSESSMENT COMPLETED.PT ALERT AND ORIENTED,FLAT AFFECT.VOLTAREN APPLED TO LEFT SHOULDER AND ANKLE WITH RELIEF. FRANOC WITH GOOD U/O.AFEBRILE.
[2022-01-04 08:46] VITALS: BP 173/92
--- NOTE | 2022-01-04 12:20 | NUR ---
Phys reports patient agreeable to home infusion. Sp with patient and discussed home infusion. she is agreeable. faxed referral to [facility] to inquire.
[2022-01-04 15:44] VITALS: BP 151/95
--- NOTE | 2022-01-04 16:08 | NUR ---
faxed clinical to [facility] who reports 100% coverage for home infusion and supplies. When entered room patient now in isolation. Wearing gown/gloves. patient was questioning why in isolation, questioning returning home with some infection. she reports at home babies come visit and she is concerned she is in isolation. Attempting to discuss with patient home infusion. Explaining teaching at hospital. Needs to be point person for home infusion as HH Rn cannot come each time for infusion. Patient initially told casemgt her dtr would be able to assist. She now says she works from 7 am to 10 pm. Discussed option of facility and patient just says "I dont know...I dont know" She reports she is frustrated she is in isolation. She reports she is in pain and her narcotics have been decreased. She cannot commit to any plan at this time. Updated RN.
--- NOTE | 2022-01-04 19:29 | NUR ---
BEDSIDE REPORT GIVEN TO STRAP SETTER NURSE, PT FREE OF PAIN AND IN STABLE CONDITION
[2022-01-04 19:45] VITALS: BP 109/75
--- NOTE | 2022-01-05 03:45 | NUR ---
A&OX4. TURN q 2HRS. FREQUENT POSITION CHANGES DONE PER PT REQUEST. VS STABLE. RA. VOIDING PER FRANCO. MANAGED BG LEVEL WITH SLIDING SCALE AND LONG ACTING INSULIN. PAIN TREATED PER PHYSICIAN PRN PAIN MED ORDER. NSR ON TELE. COLOSTOMY OUTPUT 300CC. NO OTHER ISSUES NOTED THIS SHIFT. WILL CONTINUE TO MONITOR.
[2022-01-05 07:10] VITALS: BP 111/67
--- NOTE | 2022-01-05 09:52 | NUR ---
A/O X 4, FLAT AFFECT, ROOM AIR, BEDBOUND, LEFT SIDE WEAKNESS PAST CVA, RIGTH UPPER ARM PICC DRESSING D/C/I, DOUBLE LUMENS FLUSHED 10 CC NS, POSITVIE BLOOD RETURN, COLOSTOMY-LIQUID BROWN STOOL NOTED, SUPRAPUBIC CATH, BS 86 @ BREAKFAST NO INSULIN NEEDED, BUTTOCK PAIN NORCO GIVEN PRN, HEPARIN DVT PPX, SHE IS VERY CONCERNED ABOUT DISCHARGING HOME WITH ABT INFUSIONS, WILFRID BLACKMAN MADE AWARE AND WENT TO TALK TO HER.
--- NOTE | 2022-01-05 11:51 | NUR ---
[facility] called casemgr. Reports patient called them to discuss the Rn to come each time need for home infusion. [facility] reports they cannot accomadate. Discussed with patient process of home infusion. medication delivered. Teaching prior to discharge and teaching to family. Patient reports there is noone who can assist with home infusion. Her dtr will not committ and she has called to friends who have concerns to committ. Patient agreeable to skilled facility but does not want to return to [facility]. She is agreeable to referrals to facility near [facility]. Discussed referrals to [facility] and [facility].
[2022-01-05 11:55] VITALS: BP 120/76
[2022-01-05 15:49] VITALS: BP 136/70
[2022-01-05 19:52] VITALS: BP 128/73
--- NOTE | 2022-01-06 05:55 | NUR ---
A&OX3. TURN q2 HOURS. VS STABLE. RA. FRANCO IN PLACE. COLOSTOMY OUTPUT GOOD. NSR ON TELE. PAIN MANAGED WITH PRN PAIN MED. NO OTHER ISSUES NOTED. WILL CONTINUE TO MONITOR.
[2022-01-06 07:31] VITALS: BP 124/72
[2022-01-06 08:36] VITALS: BP 124/72
--- NOTE | 2022-01-06 09:45 | NUR ---
Assumed care of pt at 0700. Pt a&ox4. Pain controlled. Q2h turn. Suprapubic catheter and colostomy in place. Possible to [facility] today. Call light within reach. Fall precautions in place. Will continue to monitor.
[2022-01-06] MEDS ORDERED: MEROPENEM500 MG IV ×2 (11:23)
[2022-01-06] MEDS ORDERED: OXCARBAZEPINE300 MG PO ×2 (11:25)
--- NOTE | 2022-01-06 14:50 | NUR ---
[facility] unable to accept. [facility] is full. [facility] not accepting but sister facility [facility] is accepting. Discussed with patient she is agreeable to transfer to [facility], [facility] avail today. Faxed orders, Chart copied. Erik hubbard from [employer] for [phone]. Notified patient. No further needs
== END 2022-01-06 15:26 | DRG 871 ==
LOC: ER 15:58 → 4S 19:11 → EROBS 19:11 → 4S 21:57
PROVIDERS: Nurse Practitioner; Nurse Practitioner Family; ADMIT Internal Medicine; ATTEND Internal Medicine
PROC: 05HB33Z Insertion of Infusion Device into Right Basilic Vein, Percutaneous Approach (ICD-10-PCS; principal; 2021-12-30)
DX: A41.9 Sepsis, unspecified organism (principal); L89.323 Pressure ulcer of left buttock, stage 3; N30.01 Acute cystitis with hematuria; I69.354 Hemiplegia and hemiparesis following cerebral infarction affecting left non-dominant side; Z68.42 Body mass index [BMI] 45.0-49.9, adult; Z16.12 Extended spectrum beta lactamase (ESBL) resistance; K56.7 Ileus, unspecified; F11.20 Opioid dependence, uncomplicated; E11.65 Type 2 diabetes mellitus with hyperglycemia; N31.9 Neuromuscular dysfunction of bladder, unspecified; E66.01 Morbid (severe) obesity due to excess calories; K59.81 Ogilvie syndrome; M17.0 Bilateral primary osteoarthritis of knee; F31.9 Bipolar disorder, unspecified; G89.29 Other chronic pain; E11.622 Type 2 diabetes mellitus with other skin ulcer; L98.499 Non-pressure chronic ulcer of skin of other sites with unspecified severity; I10 Essential (primary) hypertension; B95.2 Enterococcus as the cause of diseases classified elsewhere; R53.81 Other malaise; F41.1 Generalized anxiety disorder; L89.152 Pressure ulcer of sacral region, stage 2; B96.5 Pseudomonas (aeruginosa) (mallei) (pseudomallei) as the cause of diseases classified elsewhere; E78.5 Hyperlipidemia, unspecified; B96.20 Unspecified Escherichia coli [E. coli] as the cause of diseases classified elsewhere; K59.00 Constipation, unspecified; Z96.0 Presence of urogenital implants; Z20.822 Contact with and (suspected) exposure to COVID-19; Z93.3 Colostomy status; Z93.50 Unspecified cystostomy status; Z74.01 Bed confinement status; Z87.440 Personal history of urinary (tract) infections; Z79.899 Other long term (current) drug therapy; Z99.3 Dependence on wheelchair
CPT/HCPCS: 10100; 27000

== ENCOUNTER 2022-01-07 12:50 | Emergency (ER) | payer OTHER ==
[~2022-01-07] VITALS: Ht 162.6 cm; Wt 128.4 kg
--- NOTE | ~2022-01-07 | EMS ---
[address] [address] EMS Patient Care Report Name: KAILA CORONA Room #: DEP Jeanette#: [id number] Admission: 01/07/22 Attend Phys: Discharge: 01/07/22 Date of : 63 Report #: [id number] THIS REPORT FOR: //name// Report Transmitted: 01/08/2022 04:55 EMS Care Summary [facility] Incident [id number] @ 01/07/2022 11:53 Incident Location [address] [place], [place] [id number] Patient KAILA CORONA Female, 56 Years 1965 Patient Address [address] [place] [id number] Patient History Other,Diabetes,Hypertension (HTN),Stroke/CVA, Patient Allergies No known allergies, Patient Medications Omeprazole, Baclofen, Zofran, Glipizide, Other, Ropinirole, Vitamin D, Atorvastatin, Lasix, Morphine, Duloxetine, Amlodipine, Potassium, Quetiapine, Citalopram, Chief Complaint required medication from the ER Disposition Transported No Lights/[place] Dispatch Reason Sick Person Transported To [facility] Narrative S51 responded non-emergent to sick person dispatch. S51 arrived to snf [address] [address] EMS Patient Care Report Name: KAILA CORONA Room #: DEP ER Jeanette#: [id number] Admission: 01/07/22 Attend Phys: Discharge: 01/07/22 Date of : 63 Report #: [id number] to find patient laying semi-fowlers in bed. Patient was alert, airway was patent, breathing was regular and non-labored. Skin was pink, warm, and dry. Peripheral pulses were strong, regular, and equal. Patient was A&Ox4 with a GCS of 15. Patient has no medical complaint. Patient stated she has been in the snf since yesterday without receiving any antibiotic medication or treatment for her UTI, and wants to be taken back to the hospital to receive treatment. Patient assessment revealed no abnormalities. Patient denied any new complaints. Moved patient from bed to cot, secured with seatbelts and moved to the ambulance. Reassessed patient en route to the hospital. Transported non-emergent to [facility]. Arrived without incident. Transferred care to AR[facility] Bernal in room 2. Initial Vitals @12:20P: 70,R: 16,Pain: 0/10,GCS: 15,SpO2: 98, @12:42P: 69,R: 16,BP: 150/80,Pain: 0/10,GCS: 15,SpO2: 100,Revised Trauma: 12, @12:36P: 68,R: 16,BP: 134/58,Pain: 0/10,GCS: 15,SpO2: 98,Revised Trauma: 12, @12:17P: 73,R: 16,BP: 140/79,Pain: 0/10,GCS: 15,Glucose: 157,SpO2: 95,Revised Trauma: 12, Impression No Complaints or Injury/Illness Noted Procedures @12:15 ALS Assessment Response: UnchangedSucceeded @12:26 3-Lead ECG Timeline 11:51,Call Received 11:51,Psap Call 11:53,Dispatched 11:55,En Route 12:00,Initial Responder On Scene 12:00,On Scene 12:01,At Patient 12:15,ALS Assessment,Response: UnchangedSucceeded, 12:17,BP: 140/79 M,PULSE: 73,RR: 16 R,SPO2: 95 Ox,ETCO2: ,B,PAIN: 0,GCS: 15, 12:20,BP: / M,PULSE: 70,RR: 16 R,SPO2: 98 Ox,ETCO2: ,BG: ,PAIN: 0,GCS: 15, 12:23,Depart Scene 12:26,3-Lead ECG, 12:36,BP: 134/58 M,PULSE: 68,RR: 16 R,SPO2: 98 Ox,ETCO2: ,BG: ,PAIN: 0,GCS: 15, 12:42,At Destination 12:42,BP: 150/80 M,PULSE: 69,RR: 16 R,SPO2: 100 Ox,ETCO2: ,BG: ,PAIN: 0,GCS: 15, [address] [address] EMS Patient Care Report Name: KAILA CORONA CORINTH [id number] Admission: 01/07/22 Attend Phys: Discharge: 01/07/22 Date of : 63 Report #: [id number] 12:42,Transfer Patient 13:19,Call Closed Disclaimer v1.1 Copyright 2021 [employer] This EMS Care Summary contains data elements from the applicable legal record (which may be displayed differently). It is designed to provide pertinent information for the following purposes: continuity of care, clinical quality, and state data reporting. The complete legal record is available to ED staff and administrators of the receiving hospital in [employer]'s Patient Tracker. All data is provided "as is."
--- NOTE | ~2022-01-07 | EMS ---
[address] [address] EMS Patient Care Report Name: KAILA CORONA Room #: PRE ER M.R.#: [id number] Admission: Attend Phys: Discharge: Date of : 63 Report #: [id number] THIS REPORT FOR: //name// Report Transmitted: 01/07/2022 13:22 EMS Care Summary [facility] Incident [id number] @ 01/07/2022 11:53 Incident Location [address] [place] [address] Patient KAILA CORONA Female, 56 Years 1965 Patient Address [address] [address] Patient History Other,Diabetes,Hypertension (HTN),Stroke/CVA, Patient Allergies No known allergies, Patient Medications Omeprazole, Baclofen, Zofran, Glipizide, Other, Ropinirole, Vitamin D, Atorvastatin, Lasix, Morphine, Duloxetine, Amlodipine, Potassium, Quetiapine, Citalopram, Chief Complaint required medication from the ER Disposition Transported No Lights/[place] Dispatch Reason Sick Person Transported To [facility] Narrative S51 responded non-emergent to sick person dispatch. S51 arrived to care home [address] [address] EMS Patient Care Report Name: KAILA CORONA Room #: PRE Jeanette#: [id number] Admission: Attend Phys: Discharge: Date of : 63 Report #: [id number] to find patient laying semi-fowlers in bed. Patient was alert, airway was patent, breathing was regular and non-labored. Skin was pink, warm, and dry. Peripheral pulses were strong, regular, and equal. Patient was A&Ox4 with a GCS of 15. Patient has no medical complaint. Patient stated she has been in the care home since yesterday without receiving any antibiotic medication or treatment for her UTI, and wants to be taken back to the hospital to receive treatment. Patient assessment revealed no abnormalities. Patient denied any new complaints. Moved patient from bed to cot, secured with seatbelts and moved to the ambulance. Reassessed patient en route to the hospital. Transported non-emergent to [facility]. Arrived without incident. Transferred care to [facility] Bernal in room 2. Initial Vitals @12:20P: 70,R: 16,Pain: 0/10,GCS: 15,SpO2: 98, @12:42P: 69,R: 16,BP: 150/80,Pain: 0/10,GCS: 15,SpO2: 100,Revised Trauma: 12, @12:36P: 68,R: 16,BP: 134/58,Pain: 0/10,GCS: 15,SpO2: 98,Revised Trauma: 12, @12:17P: 73,R: 16,BP: 140/79,Pain: 0/10,GCS: 15,Glucose: 157,SpO2: 95,Revised Trauma: 12, Impression No Complaints or Injury/Illness Noted Procedures @12:15 ALS Assessment Response: UnchangedSucceeded @12:26 3-Lead ECG Timeline 11:51,Call Received 11:51,Psap Call 11:53,Dispatched 11:55,En Route 12:00,Initial Responder On Scene 12:00,On Scene 12:01,At Patient 12:15,ALS Assessment,Response: UnchangedSucceeded, 12:17,BP: 140/79 M,PULSE: 73,RR: 16 R,SPO2: 95 Ox,ETCO2: ,B,PAIN: 0,GCS: 15, 12:20,BP: / M,PULSE: 70,RR: 16 R,SPO2: 98 Ox,ETCO2: ,BG: ,PAIN: 0,GCS: 15, 12:23,Depart Scene 12:26,3-Lead ECG, 12:36,BP: 134/58 M,PULSE: 68,RR: 16 R,SPO2: 98 Ox,ETCO2: ,BG: ,PAIN: 0,GCS: 15, 12:42,At Destination 12:42,BP: 150/80 M,PULSE: 69,RR: 16 R,SPO2: 100 Ox,ETCO2: ,BG: ,PAIN: 0,GCS: 15, [facility] [address] [place] [address] EMS Patient Care Report Name: CJKAILARobi BAUER Room #: PRE M.R.#: [id number] Admission: Attend Phys: Discharge: Date of : 63 Report #: [id number] 12:42,Transfer Patient 13:19,Call Closed Disclaimer v1.1 Copyright 2021 [employer] This EMS Care Summary contains data elements from the applicable legal record (which may be displayed differently). It is designed to provide pertinent information for the following purposes: continuity of care, clinical quality, and state data reporting. The complete legal record is available to ED staff and administrators of the receiving hospital in [employer]'s Patient Tracker. All data is provided "as is."
[~2022-01-07 12:50] MED LIST changes: +MEROPENEM500 MG IV; +OXCARBAZEPINE300 MG PO; +PREGABALIN50 MG PO
[2022-01-07 14:15] LABS: HEMATOCRIT 33.3 % (37.0-47.0); HEMOGLOBIN 10.7 gm/dL (12.0-15.0); MCH 26.1 pg (26.0-34.0); MCHC 32.2 g/dL (28.0-37.0); MCV 81.1 fL (80.0-100.0); RBC 4.1 mil/uL (4.20-5.00); RDW 14.6 % (10.5-14.5)
[2022-01-07 14:24] LABS: CALCIUM 9.9 mg/dL (8.5-10.1); CREATININE 0.7 mg/dL (0.6-1.0); POTASSIUM 4.2 mmol/L (3.5-5.1)
[2022-01-07 14:31] LABS: ALBUMIN 3.1 g/dL (3.4-5.0); TOTAL BILIRUBIN 0.3 mg/dL (0.2-1.0); TOTAL PROTEIN 6.9 g/dL (6.4-8.2)
[2022-01-07 14:47] VITALS: BP 150/82
== END 2022-01-07 16:14 ==
LOC: ER 12:50
PROVIDERS: Nurse Practitioner Family
DX: N39.0 Urinary tract infection, site not specified (principal); F41.9 Anxiety disorder, unspecified; E11.9 Type 2 diabetes mellitus without complications; F31.9 Bipolar disorder, unspecified; I10 Essential (primary) hypertension; E78.5 Hyperlipidemia, unspecified; E66.01 Morbid (severe) obesity due to excess calories; Z68.42 Body mass index [BMI] 45.0-49.9, adult; Z93.3 Colostomy status; Z79.899 Other long term (current) drug therapy; Z79.4 Long term (current) use of insulin